=== PATIENT | male | born 1945 | race Caucasian/White ===

== ENCOUNTER 2020-02-03 08:40 | Outpatient (RCR) | payer MEDICARE, SELFPAY ==
[2020-02-03 10:02] VITALS: BMI 31.6
== END 2020-04-18 17:13 | disposition home or self-care (01) ==
LOC: ANHWOC 08:40
PROVIDERS: PCP Family Medicine; Visit Provider Family Medicine
DX: I87.2 Venous insufficiency (chronic) (peripheral) (principal)
CPT/HCPCS: 99213; G0463

== ENCOUNTER 2020-02-16 11:39 | Observation (INO) | payer MEDICARE, SELFPAY ==
[2020-02-16] VITALS (13 sets, daily range): BP systolic 91–120; BP diastolic 44–74; PULSE 80–95; RESP 17–22; TEMP 36.2–36.8; O2SAT 92–98; BMI 31.3
--- NOTE | ~2020-02-16 | XR_ITS ---
EXAMINATION: XR chest 1V INDICATION: Weakness and cough TECHNIQUE: AP view of the chest is obtained. COMPARISON: 06/30/2019 FINDINGS: There are minimal airspace opacities of the lung bases. A small left pleural effusion is pr esent. Stable cardiomegaly is noted. Median sternotomy wires and mediastinal surgical clips are seen, likely from prior coronary artery bypass grafting. There is enlargement of the main and central pulm onary arteries, consistent with pulmonary hypertension. IMPRESSION: 1. Bibasilar airspace opacity, consistent with atelectasis versus pneumonia. 2. Small left pleural effusion. 3. Cardiomegaly. Reviewed, dictated and finalized at location A.
--- NOTE | ~2020-02-16 | CT_ITS ---
EXAMINATION: CT chest abdomen pelvis w con DATE: 02/17/2020 14:25 INDICATION: Chronic cough, recent GI bleed TECHNIQUE: Transaxial computed tomographic images of the chest, abdomen, and pelvis were obtained aft er the administration of 100 cc of Omnipaque 350 intravenous contrast. The dose-length product (DLP) was 1765.30 mGy-cm. Automated exposure control and iterative reconstruction technique were employed. COMPARISON: None FINDINGS: CHEST CT: There is moderate emphysema. Cardiomegaly is noted. There is a small pleural effusion. Airspace opaci ties are present in the lower lobes, left greater than right. There is no pneumothorax. Moderate bila teral gynecomastia is noted. There is enlargement of the main and central pulmonary arteries, consist ent with pulmonary hypertension. There is mild bilateral hilar and mediastinal lymphadenopathy, likel y reactive. Calcified atherosclerosis is noted. There are changes of coronary artery bypass grafting. There are bridging osteophytes at multiple levels in the spine, consistent with diffuse idiopathic sk eletal hyperostosis (DISH). ABDOMEN/PELVIS CT: The liver, spleen, pancreas, and adrenal glands are normal. Stones layer in the nondistended gallblad hannah. The kidneys are unremarkable. There is calcified atherosclerosis of the aorta and many of the ot her arteries. No pathologically enlarged abdominal or pelvic lymph nodes are identified. There is no free intraperitoneal gas or evidence of bowel obstruction. There are changes of right hip arthroplast y. A bone island is noted in the left femoral neck. There is mild lumbar spondylosis. IMPRESSION: 1. Airspace opacities of the lower lobes, left greater than right, consistent with atelectasis and pn eumonia. 2. Mild mediastinal and bilateral hilar lymphadenopathy, likely reactive. 3. No acute findings of the abdomen or pelvis. 4. Small left pleural effusion. 5. Cholelithiasis without evidence of cholecystitis. Reviewed, dictated and finalized at location A. IMPRESSION: 1. Airspace opacities of the lower lobes, left greater than right, consistent w ith atelectasis and pneumonia. 2. Mild mediastinal and bilateral hilar lymphadenopathy, likely reactive. 3. No acute findings of the abdomen or pelvis. 4. Small left pleural effusion. 5. Cholelithiasis without evidence of cholecystitis.
--- NOTE | ~2020-02-16 | XR_ITS ---
EXAMINATION: XR thoracic spine 3V DATE: 02/16/2020 13:59 INDICATION: Mid back pain TECHNIQUE: AP, lateral and lateral swimmer's views of the thoracic spine were obtained. COMPARISON: None. FINDINGS: Bone alignment is normal. There is no fracture. There is mild loss of intervertebral disc s pace height at multiple levels in the thoracic spine. The vertebral body heights are maintained. Ther e are bridging osteophytes at multiple levels in the spine, consistent with diffuse idiopathic skelet al hyperostosis (DISH). IMPRESSION: 1. No acute osseous abnormality. Reviewed, dictated and finalized at location A.
--- NOTE | 2020-02-16 12:38 | ECG_ITS ---
Measurements Intervals [place] Rate: 99 P: HI: 0 QRS: 30 QRSD: 101 T: 30 QT: 358 QTc: 459 Interpretive Statements ATRIAL FIBRILLATION BORDERLINE T WAVE ABNORMALITY- INFERIOR LEADS ABNORMAL ECG Electronically Signed On 02-16-2020 14:00:33 CDT by Tucker Shultz D.O.
--- NOTE | 2020-02-16 12:47 | ED.GENADULT ---
HPI - General Adult General Chief complaint: Upper Respiratory Infection Stated complaint: cough Time Seen by Provider: 02/16/20 12:15 Source: patient Mode of arrival: ambulatory Limitations: no limitations History of Present Illness HPI narrative: This patient is a 74 year old male who presents for evaluation of sob and fatigue. Patient states he has been having upper back pain for several months. He went to be assessed by a chiropractor yesterday and the chiropractor was concerned patient appeared short of breath, diaphoretic and yellowish skin. Patient states he has been dealing cough productive with yellow sputum for 3 weeks. He also has some sob. He was tested for COVID last week due to his symptoms and it was negative. He states his main concern is his neck pain. His states Dr. Cunningham was concerned about patient having black stools for 1 week. PAtient does take pradaxa. He denies fever, chills, nausea, vomiting abdominal pain or chest pain. Related Data Home Medications Medication Instructions Recorded Confirmed allopurinol 100 mg tablet 100 mg PO QID tablet 05/22/19 02/16/20 dabigatran etexilate 150 mg capsule 150 mg PO BID 05/22/19 02/16/20 furosemide 40 mg tablet 40 mg PO QAM 05/22/19 02/16/20 metoprolol tartrate 50 mg tablet 50 mg PO Q12H tablet 05/22/19 02/16/20 spironolactone 25 mg tablet 25 mg PO DAILY 05/22/19 02/16/20 budesonide-formoterol HFA 160 2 puff INHALATION Q12H 09/16/19 02/16/20 mcg-4.5 mcg/actuation aerosol inhaler pravastatin 20 mg tablet 20 mg PO BID tablet 11/17/19 02/16/20 acetaminophen [Tylenol 8 Hour] 650 mg PO Q8H PRN 02/03/20 02/16/20 benzonatate 200 mg PO PRN PRN 02/16/20 02/16/20 Allergies Allergy/AdvReac Type Severity Reaction Status Date / Time No Known Allergies Allergy Mild Verified 02/16/20 17:20 Review of Systems Review of Systems: All systems reviewed & are unremarkable except as noted in HPI and below Constitutional: Constitutional: Denies chills, Reports fatigue and Denies fever(s) Cardiovascular: Cardiovascular: Denies chest pain Respiratory: Respiratory: Reports cough and Reports dyspnea Gastrointestinal: Gastrointestinal: Denies abdominal pain, Reports melena, Denies diarrhea, Denies nausea and Denies vomiting Musculoskeletal: Musculoskeletal: Reports back pain (upper back pain) Neurologic: Denies vertigo, Denies focal weakness and Denies numbness [facility] Past Medical History Medical History (Updated 02/16/20 @ 19:44 by Karey Rodriguez MD) Aortic aneurysm of unspecified site, without rupture Aortic valve insufficiency Atherosclerotic heart disease of [place] coronary artery with angina pectoris Chronic a-fib Chronic gout COPD (chronic obstructive pulmonary disease) Diverticulosis of intestine, part unspecified, without perforation or abscess with bleeding Hypertensive heart disease without heart failure IFG (impaired fasting glucose) Iron deficiency anemia due to chronic blood loss snf (current) use of anticoagulants Other giant cell arteritis Polyp of colon Retinal hemorrhage, bilateral Surgical History Surgical History (Updated 06/30/19 @ 09:37 by Lorenza Alegria APRN) History of coronary artery bypass graft Hx of CABG S/P hip replacement S/P pulmonary valve replacement Family History Family History (Updated 02/16/20 @ 17:38 by Ericka Mtz RN) Father Hypertension CHF (congestive heart failure) Mother Family history of malignant neoplasm of breast in first degree relative Varicose veins of both legs with edema Social History Social History Smoking packs per day: 2 Smoking cigarettes per day: 40.0 Years smoked: 30 Smoking pack-years: 60.00 Smoking status: Former smoker Tobacco type: cigarettes Second hand tobacco smoke exposure: Yes Smoking end date: 07/15/78 Alcohol intake: never Drinks per week: 4 Substance use: never Subst
--- NOTE | 2020-02-16 13:02 | PC.NURSE ---
Pt states he is not able to give a urine sample at this time. Provided with urinal and asked to attempt
[2020-02-16 13:06] LABS: Base Excess ABG -3.7 mEq/l (+/-2.0); Carboxyhemoglobin 1.6 % THb (0-2.0); Device ROOM AIR; Fractional Inspired Oxygen 21 %; HCO3 ABG 19.1 mEq/l (22.0-26.0); Methemoglobin ABG 0.3 %THb (0-1.5); Oxygen Content ABG 10.5 %vol (16.0-22.0); Oxygen Saturation ABG 95.1 % (95.0-100.0); Oxyhemoglobin 91.5 % THb (90.0-100.0); PCO2 ABG 26.4 mmHg (35.0-45.0); PO2 ABG 68.1 mmHg (80.0-100.0); PO2 FiO2 Ratio Arterial Blood 3.24 %; Reduced Hemoglobin 6.6 %THb (0-5.0); Site Drawn RIGHT BRACHIAL; Total Hemoglobin 8.1 g/dL (12.0-18.0); pH ABG 7.477 (7.350-7.450)
[2020-02-16 13:14] LABS: Basophils Percent Auto 0.3 % (0.2-1.2); Eosinophils Absolute Auto 0.1 K/mm3 (0-0.3); Eosinophils Percent Auto 0.7 % (0-4.4); Hematocrit 24.6 % (42.0-52.0); Hemoglobin 7.4 g/dL (14.0-18.0); Immature Granulocyte Absolute 0.15 K/mm3 (0.00-0.031); Lymphocytes Absolute Auto 2.26 K/mm3 (0.9-3.2); Lymphocytes Percent Auto 15.6 % (18.3-44.2); Mean Corpuscular HGB Conc 30.1 g/dl (32-36); Mean Corpuscular Hemoglobin 26.6 pg (26-34); Mean Corpuscular Volume 88.5 fl (80-100); Mean Platelet Volume 10.1 fl (7.4-10.4); Monocytes Absolute Auto 1.2 K/mm3 (0.1-0.6); Monocytes Percent Auto 8.3 % (2.6-8.5); Neutrophils Absolute Auto 10.8 K/mm3 (1.3-6.7); Neutrophils Percent Auto 74.1 % (45.5-73.1); Nucleated Red Blood Cells Absolute Auto 0.1 K/mm3 (0.0-0.012); Nucleated Red Blood Cells Perc 0.6 % (0.0-0.2); Platelet Count Result 323 k/mm3 (150-375); Red Blood Count 2.78 M/mm3 (4.6-6.20); Red Cell Distribution Width 15.9 % (11.5-14.5); White Blood Count 14.5 K/mm3 (4.5-10.0)
[2020-02-16] MEDS: SODIUM CHLORIDE 0.9% IV 1,000 ML 999 ML IV CONT (13:22)
[2020-02-16] MEDS: PANTOPRAZOLE SODIUM IV 40 MG VIAL IV PUSH ×2 (13:22→20:02)
[2020-02-16 13:24] LABS: INR 1.7; Prothrombin Time 19.8 Seconds (11.1-14.7)
[2020-02-16 13:26] LABS: Lactic Acid Reflex 1.8 mmol/L (0.7-2.1)
[2020-02-16 13:30] LABS: Alanine Aminotransferase 15 U/L (4-50); Albumin Level 3.4 g/dL (3.5-5.1); Alkaline Phosphatase 112 U/L (38-126); Anion Gap 14.5 mmol/L (7-16); Aspartate Amino Transferase 18 U/L (17-59); Bilirubin,Total 1.7 mg/dL (0.2-1.3); Blood Urea Nitrogen 28 mg/dL (9-20); CRP 6.4 mg/dL (<1.0); Calcium 8.5 mg/dL (8.4-10.2); Carbon Dioxide 21 mmol/L (22-30); Chloride 102 mmol/L (98-107); Estimated CRCL calculation 59 ml/min; Estimated Glomerular Filt Rate > 60; Glucose 174 mg/dL (75-110); Potassium 4.5 mmol/L (3.4-5.0); Sodium 133 mmol/L (137-145)
[2020-02-16 13:35] LABS: NT Pro B Type Natriuretic Pept 3760 PG/ML (5-100)
--- NOTE | 2020-02-16 13:45 | PC.NURSE ---
Pt still refusing urine sample stating he can't go at this time. Refusing catheter
--- NOTE | 2020-02-16 14:46 | PC.NURSE ---
Lynn attempted to get urine sample from patient. Pt states if you are admitting me than why can't you just get it then. over hears and tells pt to not worry about it
[2020-02-16] MEDS: SODIUM CHLORIDE 0.9% IV 250 ML 30 ML IV CONT (16:36)
[2020-02-16] MEDS: TUBING, BLOOD PLUM PUMP TUBING 1 EACH XX (16:37)
--- NOTE | 2020-02-16 17:12 | ADMGEN ---
This patient, Rubio Fenton, was admitted to Medical Room 249-01. Patient/family oriented to hospital policies and general routines including ID bracelet, bed and alarms, visiting hours, pain management, procedures, bathroom and other care routines, personal items, smoking policy, room service/diet, and visiting hours. Valuables list has been completed. Information on how to activate the Rapid Response Team has been discussed. Patient/Family are encouraged to report perceived risks to care and to ask questions if they do not understand what they are told or what they should do.
[2020-02-16 19:48] LABS: Hematocrit 26.3 % (42.0-52.0); Hemoglobin 7.9 g/dL (14.0-18.0)
[2020-02-16 22:59] LABS: Add Urine Microscopic? YES; Appearance Urine Clear (Clear); Bilirubin Urine Negative (Negative); Blood Urine Negative (Negative); Color Urine Yellow (Yellow); Glucose Urine UA Negative (Negative); Ketones Urine Negative (Negative); Leukocyte Esterase Ur Negative LEU/UL (Negative); Mucus Urine Rare /lpf; Nitrate Urine Negative (Negative); Protein Urine 1+ mg/dL (Negative); RBC Urine 0-2 /hpf (0-2); Specific Grav Ur 1.025 (1.001-1.035); Squamous Epithelial Cell Urine Rare /hpf (Few); WBC Urine 0-3 /hpf
[2020-02-17] VITALS (19 sets, daily range): BP systolic 96–127; BP diastolic 42–61; PULSE 65–118; RESP 16–38; TEMP 36.2–37.3; O2SAT 92–100; BMI 31.3
--- NOTE | 2020-02-17 00:32 | PM.IMHP ---
H&P: HPI History of Present Illness Date/Time: 02/17/20 00:32 Chief complaint: UPPER GI BLEEDING ,ANEMIA,COPD Narrative: Rubio Fenton is a 74 year old male Who has a history of COPD. Has been complaining of a chronic cough. It looks like he was given antibiotics back in June. Patient has in his records that he has COPD but the patient stated he was not so sure about having COPD. He states that he coughs all the time and that his nasal spray helps him. The patient may possibly have allergies. The patient has a history of atrial fibrillation and is on Pradaxa. The patient came here with shortness of breath and fatigue. He has been complaining of neck pain for several months. He has been to the chiropractor several times before. But he decided to go to new chiropractor yesterday and the chiropractor was concerned about the patient shortness of breath diaphoresis and yellow skin. The patient stated he has been dealing with this for 3 weeks but I conceived as far back as June where he was having a cough. The patient's was with him and stated that his primary care doctor Dr. Cunningham had been concerned about the patient having black stools for a week. In the patient is on Pradaxa his H&H was noted to be 7.4 and 24.6 which is about his baseline. Chest x-ray was read as bibasilar airspace bases consistent with atelectasis versus pneumonia. Small pleural vision. Cardiomegaly. Thoracic spine x-ray no acute osseous abnormality. Dr. cabrera have been consult for an upper GI bleed. The patient was started on Protonix andIV fluids. repeat H&H was 7.9 and 26.3. White count 14.5. I spent approximately 60 minutes with the patient. Any cough 1 time that was a lose nonproductive cough. He has no fever no chills. His blood pressures were soft. He stated that he had some nasal congestion and just needed some nasal spray. Date of service is 02/16/2020 patient could not recall when he had his last colonoscopy. There was a note that he had a colonoscopy April of [address] [facility] [address] PAEZ. Review of Systems Review of Systems: All systems reviewed & are unremarkable except as noted in HPI and below Constitutional: Constitutional: Reports as per HPI and Reports no additional constitutional complaints Eyes: Eyes: Reports as per HPI and Reports no additional eye complaints ENT: Reports system reviewed and no additional complaints, except as documented and Reports Normal hearing present Cardiovascular: Cardiovascular: Reports no additional cardiovascular complaints Respiratory: Respiratory: Reports no additional respiratory complaints and Reports no additional respiratory complaints Gastrointestinal: Gastrointestinal: Reports as per HPI and Reports no additional gastrointestinal complaints Musculoskeletal: Musculoskeletal: Reports no additional musculoskeletal complaints Integumentary/Breasts: Skin/Breast: Reports system reviewed and no additional complaints, except as docu and Reports as per HPI Neurologic: Reports system reviewed and no additional complaints, except as documented, Reports as per HPI and Reports Normal hearing present Psychiatric: Psychiatric: Reports no additional psychiatric complaints and Reports as per HPI Endocrine: Endocrine: Reports no additional endocrine complaints Hematologic/Lymphatic: Hematologic/Lymphatic: Reports no additional hematologic/lymphatic complaints Allergic/Immunologic: Allergic/Immunologic: Reports no additional allergic/immunologic complaints [facility] Past Medical History Medical History (Updated 02/17/20 @ 00:51 by Chey Evans NP) Aortic aneurysm of unspecified site, without rupture Aortic valve insufficiency Atherosclerotic heart disease of [place] coronary artery with angina pectoris Chronic a-fib Chronic gout 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
[2020-02-17] MEDS: PHENYLEPHRINE HCL 0.5% NA SPRAY 15 ML BTL (*BKC) 1 SPRAY EACH NARE (00:45)
[2020-02-17 03:31] LABS: Hemoglobin 7.3 g/dL (14.0-18.0)
[2020-02-17 03:40] LABS: Alanine Aminotransferase 12 U/L (4-50); Alkaline Phosphatase 99 U/L (38-126); Anion Gap 13.3 mmol/L (7-16); Aspartate Amino Transferase 19 U/L (17-59); Bilirubin,Total 1.8 mg/dL (0.2-1.3); Blood Urea Nitrogen 24 mg/dL (9-20); Calcium 8.3 mg/dL (8.4-10.2); Carbon Dioxide 21 mmol/L (22-30); Chloride 104 mmol/L (98-107); Estimated CRCL calculation 65 ml/min; Estimated Glomerular Filt Rate > 60; Glucose 148 mg/dL (75-110); Potassium 4.3 mmol/L (3.4-5.0); Sodium 134 mmol/L (137-145)
--- NOTE | 2020-02-17 05:18 | ECG_ITS ---
Measurements Intervals [place] Rate: 124 P: PA: 0 QRS: 34 QRSD: 99 T: 30 QT: 310 QTc: 446 Interpretive Statements ATRIAL FIBRILLATION WITH RAPID VENTRICULAR RESPONSE NONSPECIFIC ST ABNORMALITY- LAT/HIGH LAT LEADS ABNORMAL ECG Electronically Signed On 02-17-2020 7:07:34 CDT by Tucker Shultz D.O.
--- NOTE | 2020-02-17 05:47 | PM.EVENT ---
Event Note Event Note Event Note: Patient was admitted for GI Bleed and developed tachycardia this morning. Asymptomatic. EKG demonstrated atrial fibrillation w/ RVR. HR 124 bpm. No other complaints. Transfer to IMU, diltiazem IV bolus and drip for rate control. telemetry. Patient is not a candidate for anticoagulation. Consider Cardiology consultation today.
[2020-02-17] MEDS: dilTIAZem HCl INJ 25 MG/5 ML VIAL 10 MG IV PUSH (06:16)
--- NOTE | 2020-02-17 07:37 | PC.NURSE ---
This patient, Rubio Fenton, was received from [facility] on 02/17/20 at 0737. Report received from NAINA Sy. Patient/family oriented to unit policies and routines
[2020-02-17] MEDS: BENZONATATE 100 MG CAPSULE 200 MG PO (07:51)
--- NOTE | 2020-02-17 08:43 | WPDANESEPP ---
Anes - Eval Pre Procedure Procedure: Operation Date: 02/17/20 10:00 Proposed Procedures p Esophagogastroduodenoscopy - Jaxon Torrez MD Date/Time: 02/17/20 08:43 Pre Op Diagnosis: UPPER GI BLEEDING ,ANEMIA,COPD Patient Data Age: 74 Gender: M Height: 5 ft 10 in Weight: 99 kg Last Vital Signs Temp 99.1 F 02/17/20 08:00 Pulse 108 H 02/17/20 08:00 Resp 26 H 02/17/20 08:00 BP 100/53 L 02/17/20 08:00 Pulse Ox 96 02/17/20 08:00 Allergies Allergy/AdvReac Type Severity Reaction Status Date / Time No Known Allergies Allergy Mild Verified 02/16/20 17:20 Home Medications Medication Instructions Recorded Confirmed Type allopurinol 100 mg tablet 100 mg PO QID tablet 05/22/19 02/16/20 History dabigatran etexilate 150 mg capsule 150 mg PO BID 05/22/19 02/16/20 History furosemide 40 mg tablet 40 mg PO QAM 05/22/19 02/16/20 History metoprolol tartrate 50 mg tablet 50 mg PO Q12H tablet 05/22/19 02/16/20 History spironolactone 25 mg tablet 25 mg PO DAILY 05/22/19 02/16/20 History budesonide-formoterol HFA 160 2 puff INHALATION Q12H 09/16/19 02/16/20 History mcg-4.5 mcg/actuation aerosol inhaler pravastatin 20 mg tablet 20 mg PO BID tablet 11/17/19 02/16/20 History acetaminophen [Tylenol 8 Hour] 650 mg PO Q8H PRN 02/03/20 02/16/20 History benzonatate 200 mg PO PRN PRN 02/16/20 02/16/20 History Laboratory Tests 02/16/20 02/16/20 02/16/20 12:52 13:03 13:03 WBC 14.5 K/mm3 H K/mm3 (4.5-10.0) RBC 2.78 M/mm3 L M/mm3 (4.6-6.20) Hgb 7.4 g/dL L g/dL (14.0-18.0) Hct 24.6 % L % (42.0-52.0) MCV 88.5 fl fl (80-100) MCH 26.6 pg pg (26-34) MCHC 30.1 g/dl L g/dl (32-36) RDW 15.9 % H % (11.5-14.5) Plt Count 323 k/mm3 k/mm3 (150-375) MPV 10.1 fl fl (7.4-10.4) Immature Gran % (Auto) 1.0 % H % (0-0.5) Neut % (Auto) 74.1 % H % (45.5-73.1) Lymph % (Auto) 15.6 % L % (18.3-44.2) [place] % (Auto) 8.3 % % (2.6-8.5) Eos % (Auto) 0.7 % % (0-4.4) Baso % (Auto) 0.3 % % (0.2-1.2) Lymph # (Auto) 2.26 K/mm3 K/mm3 (0.9-3.2) [place] # (Auto) 1.2 K/mm3 H K/mm3 (0.1-0.6) Eos # (Auto) 0.1 K/mm3 K/mm3 (0-0.3) Baso # (Auto) 0.0 K/mm3 K/mm3 (0.0-0.1) Abs Immat Gran (auto) 0.15 K/mm3 H K/mm3 (0.00-0.031) Absolute Neuts (auto) 10.8 K/mm3 H K/mm3 (1.3-6.7) Absolute Nucleated RBC 0.1 K/mm3 H K/mm3 (0.0-0.012) Nucleated RBC % 0.6 % H % (0.0-0.2) PT INR APTT Puncture Site Right brachial ABG pH 7.477 H (7.350-7.450) ABG pCO2 26.4 mmHg L mmHg (35.0-45.0) ABG pO2 68.1 mmHg L mmHg (80.0-100.0) ABG PO2/FiO2 Ratio 3.24 % % ABG HCO3 19.1 mEq/l L mEq/l (22.0-26.0) ABG O2 Saturation 95.1 % % (95.0-100.0) ABG O2 Content 10.5 %vol L %vol (16.0-22.0) ABG Base Excess -3.7 mEq/l mEq/l (+/-2.0) A-a Gradient 50.0 mmHg mmHg Oxyhemoglobin 91.5 % THb % THb (90.0-100.0) Carboxyhemoglobin 1.6 % THb % THb (0-2.0) Methemoglobin 0.3 %THb %THb (0-1.5) Reduced Hemoglobin 6.6 %THb H %THb (0-5.0) Total Hemoglobin 8.1 g/dL L g/dL (12.0-18.0) O2 Delivery Device Room air O2 Liters/Min Not Reportable FiO2 21 % % Sodium Potassium Chloride Carbon Dioxide Anion Gap BUN Creatinine Estim Creat Clear Calc Estimated GFR Glucose Lactic Acid Calcium Magnesium Total Bilirubin AST ALT Alkaline Phosphatase C-Reactive Protein NT-Pro-B Ana
[2020-02-17 08:46] LABS: Hematocrit 24.3 % (42.0-52.0); Hemoglobin 7.4 g/dL (14.0-18.0); Mean Corpuscular HGB Conc 30.5 g/dl (32-36); Mean Corpuscular Hemoglobin 26.6 pg (26-34); Mean Corpuscular Volume 87.4 fl (80-100); Mean Platelet Volume 10.4 fl (7.4-10.4); Platelet Count Result 305 k/mm3 (150-375); Red Blood Count 2.78 M/mm3 (4.6-6.20); Red Cell Distribution Width 15.9 % (11.5-14.5); White Blood Count 12.4 K/mm3 (4.5-10.0)
--- NOTE | 2020-02-17 09:03 | PC.NURSE ---
Patient to EGD via stretcher. Report given to NAINA Shea.
--- NOTE | 2020-02-17 09:24 | WPDGICN ---
Assessment and Plan Assessment and plan (1) Acute upper GI bleed: Code(s): K92.2 - Gastrointestinal hemorrhage, unspecified Status: Acute Assessment and Plan: Patient appears to have upper GI bleeding manifested by decline in hemoglobin and black melenic stools. Plan is for EGD today. Patient will be maintained on proton pump inhibitors until this can be accomplished. (2) Anemia: Code(s): D64.9 - Anemia, unspecified Status: Acute Assessment and Plan: Patient has anemia consistent with blood loss anemia. Likely related to GI bleeding. Plan is to transfuse to a stable hemoglobin. EGD will be performed today. (3) History of colon polyps: Code(s): Z86.010 - Personal history of colonic polyps Status: Acute Assessment and Plan: Patient has a history of colon polyps. Last colonoscopy was 5 years ago. Plan is for outpatient colonoscopy unless EGD is negative in which case a colonoscopy will be performed more urgently. (4) Chronic a-fib: Code(s): I48.20 - Chronic atrial fibrillation, unspecified Status: Acute Assessment and Plan: Patient maintained on Pradaxa anticoagulation. Pradaxa will need to be held while bleeding is a concern. (5) COPD (chronic obstructive pulmonary disease): Code(s): J44.9 - Chronic obstructive pulmonary disease, unspecified Status: Acute GI Consult Note Consult date/time: 02/17/20 09:24 HPI: Rubio Fenton is a 74 year old male Seen in evaluation at the request of the hospitalist service. Patient has various complaints over the last several days a weakness fatigue shortness of breath back pain. He has saw chiropractor recently was advised to contact his primary care service and ultimately sent to the emergency room. In the emergency room he was found to have anemia and black melenic stools that were Hemoccult positive. Patient states that his stools have been black for approximately 1 week. Patient does have a prior history of GI bleeding apparently a colonoscopy 5 years ago revealed a colon polyp. He has had no follow-up colonoscopy since that time. He denies any prior history of ulcer disease or upper GI bleeding. He denies any obtain specific abdominal pain. Family history is noncontributory. Patient is maintained on Pradaxa for history of atrial fibrillation. After admission the hospital was found to have a rapid heart rate placed on a Cardizem drip. 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 Retinal hemorrhage, bilateral Surgical History Surgical History H/O bilateral cataract extraction History of arthroplasty of right hip History of coronary artery bypass graft RAI to LAD Dr. shelli [facility] Hx of CABG 1 vessel S/P hip replacement S/P pulmonary valve replacement Family History Family History Father Hypertension CHF (congestive heart failure) Mother Family history of malignant neoplasm of breast in first degr
[2020-02-17] MEDS: LACTATED RINGERS 1,000 ML 150 ML IV CONT (09:25)
--- NOTE | 2020-02-17 09:37 | WPDANESEPPF ---
Anes - Initial Pre Proc Eval Procedure: Operation Date: 02/17/20 10:00 Proposed Procedures p Esophagogastroduodenoscopy - Jaxon Torrez MD Date/Time: 02/17/20 09:37 Surgeon: Laura Cowart PA-C Pre Op Diagnosis: UPPER GI BLEEDING ,ANEMIA,COPD Patient Data Age: 74 Gender: M Height: 5 ft 10 in Weight: 99 kg Last Vital Signs Temp 97.9 F 02/17/20 09:27 Pulse 84 02/17/20 09:27 Resp 18 02/17/20 09:27 BP 122/54 L 02/17/20 09:27 Pulse Ox 94 02/17/20 09:27 Allergies Allergy/AdvReac Type Severity Reaction Status Date / Time No Known Allergies Allergy Mild Verified 02/17/20 09:26 Home Medications Medication Instructions Recorded Confirmed Type allopurinol 100 mg tablet 100 mg PO QID tablet 05/22/19 02/16/20 History dabigatran etexilate 150 mg capsule 150 mg PO BID 05/22/19 02/16/20 History furosemide 40 mg tablet 40 mg PO QAM 05/22/19 02/16/20 History metoprolol tartrate 50 mg tablet 50 mg PO Q12H tablet 05/22/19 02/16/20 History spironolactone 25 mg tablet 25 mg PO DAILY 05/22/19 02/16/20 History budesonide-formoterol HFA 160 2 puff INHALATION Q12H 09/16/19 02/16/20 History mcg-4.5 mcg/actuation aerosol inhaler pravastatin 20 mg tablet 20 mg PO BID tablet 11/17/19 02/16/20 History acetaminophen [Tylenol 8 Hour] 650 mg PO Q8H PRN 02/03/20 02/16/20 History benzonatate 200 mg PO PRN PRN 02/16/20 02/16/20 History Laboratory Tests 02/16/20 02/16/20 02/16/20 12:52 13:03 13:03 WBC 14.5 K/mm3 H K/mm3 (4.5-10.0) RBC 2.78 M/mm3 L M/mm3 (4.6-6.20) Hgb 7.4 g/dL L g/dL (14.0-18.0) Hct 24.6 % L % (42.0-52.0) MCV 88.5 fl fl (80-100) MCH 26.6 pg pg (26-34) MCHC 30.1 g/dl L g/dl (32-36) RDW 15.9 % H % (11.5-14.5) Plt Count 323 k/mm3 k/mm3 (150-375) MPV 10.1 fl fl (7.4-10.4) Immature Gran % (Auto) 1.0 % H % (0-0.5) Neut % (Auto) 74.1 % H % (45.5-73.1) Lymph % (Auto) 15.6 % L % (18.3-44.2) [place] % (Auto) 8.3 % % (2.6-8.5) Eos % (Auto) 0.7 % % (0-4.4) Baso % (Auto) 0.3 % % (0.2-1.2) Lymph # (Auto) 2.26 K/mm3 K/mm3 (0.9-3.2) [place] # (Auto) 1.2 K/mm3 H K/mm3 (0.1-0.6) Eos # (Auto) 0.1 K/mm3 K/mm3 (0-0.3) Baso # (Auto) 0.0 K/mm3 K/mm3 (0.0-0.1) Abs Immat Gran (auto) 0.15 K/mm3 H K/mm3 (0.00-0.031) Absolute Neuts (auto) 10.8 K/mm3 H K/mm3 (1.3-6.7) Absolute Nucleated RBC 0.1 K/mm3 H K/mm3 (0.0-0.012) Nucleated RBC % 0.6 % H % (0.0-0.2) PT INR APTT Puncture Site Right brachial ABG pH 7.477 H (7.350-7.450) ABG pCO2 26.4 mmHg L mmHg (35.0-45.0) ABG pO2 68.1 mmHg L mmHg (80.0-100.0) ABG PO2/FiO2 Ratio 3.24 % % ABG HCO3 19.1 mEq/l L mEq/l (22.0-26.0) ABG O2 Saturation 95.1 % % (95.0-100.0) ABG O2 Content 10.5 %vol L %vol (16.0-22.0) ABG Base Excess -3.7 mEq/l mEq/l (+/-2.0) A-a Gradient 50.0 mmHg mmHg Oxyhemoglobin 91.5 % THb % THb (90.0-100.0) Carboxyhemoglobin 1.6 % THb % THb (0-2.0) Methemoglobin 0.3 %THb %THb (0-1.5) Reduced Hemoglobin 6.6 %THb H %THb (0-5.0) Total Hemoglobin 8.1 g/dL L g/dL (12.0-18.0) O2 Delivery Device Room air O2 Liters/Min Not Reportable FiO2 21 % % Sodium Potassium Chloride Carbon Dioxide Anion Gap BUN Creatinine Estim Creat Clear Calc Estimated GFR Glucose Lactic Acid Calcium Magnesium Total Bilirubin AST ALT Alkaline Phosphatase C-Reacti
--- NOTE | 2020-02-17 10:42 | PC.NURSE ---
Patient returned to room following EGD.
--- NOTE | 2020-02-17 10:56 | SUR.PHASEII ---
1000 pt's spouse at bedside. Pt coughing up copious yellow secretions. Suctioned as needed. Updated pt's nurse Lary.
[2020-02-17] MEDS: allopurinoL 100 MG TABLET PO (12:01)
--- NOTE | 2020-02-17 13:12 | PCNSR ---
On 02/17/20, the student, El Copeland, provided care and completed [facility] documentation on this patient. I have reviewed the student's documentation and agree with the findings.
--- NOTE | 2020-02-17 13:47 | PM.IMPN ---
Progress Note: A&P Assessment and Plan (1) Acute upper GI bleed: Code(s): K92.2 - Gastrointestinal hemorrhage, unspecified Status: Acute Assessment and Plan: Underwent endoscopy today by Dr. Torrez. 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 Continue to hold Pradaxa for one week per Dr. Torrez's recommendations. He will need to schedule an outpatient colonoscopy (2) Anemia: Code(s): D64.9 - Anemia, unspecified Status: Acute Assessment and Plan: Normocytic. On review of prior labs, appears to be chronic but acutely worsened by active upper GI bleed. Suspect improvement following cautery. Continue to monitor H&H closely and transfuse as needed. (3) Community acquired pneumonia: Code(s): J18.9 - Pneumonia, unspecified organism Status: Acute Assessment and Plan: CXR and chest CT show bibasilar airspace opacities consistent with pneumonia. He has had cough productive of yellow sputum and leukocytosis. He is afebrile. Will begin rocephin and azithromycin Attempt collection of sputum culture Check legionella and pneumococcal antigens Bronchodilators and supplemental O2 as needed (4) Chronic a-fib: Code(s): I48.20 - Chronic atrial fibrillation, unspecified Status: Acute Assessment and Plan: His rate is typically well controlled with Early am on 02/16, his rate increased to the 150s. He was moved to the IMU and started on a cardizem drip. This was more than likely due to holding metoprolol prior to EGD while he was NPO. Rate is controlled with cardizem. Continue cardizem drip Cardiology was consulted and recommendations are appreciated. Will resume typical 50 mg q12 dose with evening meds at 9:00 pm. Stop cardizem drip at that time per cardiology recs Continue to monitor on telemetry Hold pradaxa for 1 week per GI recs (5) COPD (chronic obstructive pulmonary disease): Code(s): J44.9 - Chronic obstructive pulmonary disease, unspecified Status: Acute Assessment and Plan: Chronic and stable. He is maintaining adequate oxygenation on room air. Continue bronchodilators. Supplemental O2 as needed with goal O2 sat >90% (6) Congestive heart failure: Code(s): I50.9 - Heart failure, unspecified Status: Chronic Assessment and Plan: EF unknown. Appears clinically compensated. Continue metoprolol, lasix, and spironolactone Monitor volume status closely. Subjective Date/time seen: 02/17/20 13:47 Interval history: Date of service: 02/17/2020 He reports he is feeling well today. He tolerated his endoscopy well this morning. He had a dark tarry stool overnight but has not had any stools today. He has had no other episodes of bleeding. He denies any abdominal pain, nausea, vomiting, fever, or chills. He complains of cough productive of yellow sputum and shortness of breath. He denies chest pain, palpitations, dizziness, lightheadedness, fatigue, or weakness. He is eating well. Review of Systems Review of Systems: Narrative: A 12 point review of systems was reviewed with pertinent positives and negatives as per HPI. Exam Narrative: Exam Narrative: Mr. Fenton is examined alone today. He is a well-nourished 74-year-old male who is lying semi recumbent in bed eating lunch. He appears comfortable and is in no acute distress. HR 94, BP 104/46, R 22, T 98.8?, 97% on room air Neuro: awake, alert and oriented x4, speech clear, no focal neuro deficits noted HEENMT: normocephalic, atraumatic, EOMI, sclerae anicteric, moist oral mucosa, tongue midline, nares patent Neck: supple, no lymphadenopathy Respiratory: clear to auscultation bilaterally, nonlabored breathing Cardio: regular rate, regular rhythm with S1-S2 Abdomen: nondistended, normoactive bowel sounds, soft, nontender to palpation Extremities: no edema, erythema, cyanosis,
--- NOTE | 2020-02-17 16:06 | PM.CNCAR ---
Assessment and Plan Assessment and plan (1) Chronic a-fib: Code(s): I48.20 - Chronic atrial fibrillation, unspecified <Nikkie Paulson APRN - Last Filed: 02/17/20 17:16> Status: Acute <Nikkie Paulson APRN - Last Filed: 02/17/20 17:16> Assessment and Plan: Permanent atrial fibrillation. Rate normally controlled with 50 mg of Metoprolol tartrate every 12 hours. This is been on hold since admission. Went into AFib RVR overnight. Rate is controlled with Cardizem at 5 mg per hour. Recommend restarting Metoprolol tartrate 50 mg every 12 hours. Discontinue Cardizem drip when 1st dose given. 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 Per Dr Torrez's recommendation will hold for at least 1 week. <Nikkie Paulson APRN - Last Filed: 02/17/20 17:16> (3) Acute upper GI bleed: Code(s): K92.2 - Gastrointestinal hemorrhage, unspecified <Nikkie Paulson APRN - Last Filed: 02/17/20 17:16> Status: Acute <Nikkie Paulson APRN - Last Filed: 02/17/20 17:16> Assessment and Plan: Endoscopy revealed:single localized angioectasia in the 3rd part of the duodenum. It was actively bleeding. The lesion was successfully cauterized. Colonoscopy to be scheduled as an outpatient. <Nikkie Paulson APRN - Last Filed: 02/17/20 17:16> Additional Plan Plan discussed with Dr Lyons 02/18/2020 <Nikkie Paulson APRN - Last Filed: 02/17/20 17:16> History of Present Illness History of Present Illness Consult date/time: 02/17/20 15:25 <Nikkie Paulson APRN - Last Filed: 02/17/20 17:16> 02/18/2020 Patient seen, chart reviewed. Patient with persistent atrial fibrillation usually well controlled, now with AFib RVR.Agree with PROGRAM STRATEGIST and Khurram's assessment that patient had AFib RVR was related to missing meds; the anemia is a contributing factor as well. Pradaxa on hold because of anemia and acute GI bleeding. Yeimi Lyons MD <Marry Lyons MD - Last Filed: 02/18/20 11:21> Requesting physician: Laura Cowart PA-C <Nikkie Paulson APRN - Last Filed: 02/17/20 17:16> Consult reason: atrial fibrillation ( RVR) <Nikkie Paulson APRN - Last Filed: 02/17/20 17:16> Reason For Visit: UPPER GI BLEEDING ,ANEMIA,COPD <Nikkie Paulson APRN - Last Filed: 02/17/20 17:16> Narrative: 74-year-old male with a history of permanent atrial fibrillation on long-term use of anticoagulation with dabigatran presented to the emergency room on 02/16/2020 with shortness of breath and fatigue. He was admitted with an acute upper GI bleed and anemia. . He was NPO for endoscopy today. His medications were on hold. Overnight he went into atrial fibrillation with a rapid ventricular response. He was started on a Cardizem drip for rate control. He was taken to the GI lab today by Dr Torrez with a significant findings of a single localized angioectasia in the 3rd part of the duodenum. It was actively bleeding. The lesion was successfully cauterized. Dr Torrez recommended no anticoagulation for 1 week. Schedule outpatient colonoscopy. <Nikkie Paulson APRN - Last Filed: 02/17/20 17:16> Review of Systems Constitutional: Constitutional: Denies difficulty sleeping, Reports fatigue, Denies fever(s), Denies headache(s) and Denies night sweats <Nikkie Paulson APRN - Last Filed: 02/17/20 17:16> Eyes: Eyes: Denies blurry vision <Nikkie Paulson APRN - Last Filed: 02/17/20 17:16> ENT: Reports Normal hearing present, Denies dysphagia, Denies dizziness, Denies epista
[2020-02-17] MEDS: METOPROLOL TARTRATE 50 MG TAB PO (17:41)
[2020-02-17] MEDS: allopurinoL 100 MG TABLET 200 MG PO (17:41)
[2020-02-17 20:50] LABS: Hematocrit 23.7 % (42.0-52.0); Hemoglobin 7.3 g/dL (14.0-18.0)
[2020-02-17] MEDS: PRAVASTATIN SODIUM 20 MG TABLET PO (20:54)
[2020-02-17] MEDS: AZITHROMYCIN 250 MG TABLET 500 MG PO (20:54)
[2020-02-18] VITALS (15 sets, daily range): BP systolic 96–121; BP diastolic 42–53; PULSE 62–106; RESP 18–22; TEMP 35.6–37; O2SAT 93–100
[2020-02-18 01:25] LABS: Hematocrit 22.9 % (42.0-52.0)
[2020-02-18 01:37] LABS: Hemoglobin 6.9 g/dL (14.0-18.0)
[2020-02-18] MEDS: SODIUM CHLORIDE 0.9% IV 250 ML 30 ML IV CONT (02:15)
[2020-02-18] MEDS: METOPROLOL TARTRATE 50 MG TAB PO (05:46)
[2020-02-18 07:21] LABS: Hematocrit 26.9 % (42.0-52.0); Hemoglobin 8.2 g/dL (14.0-18.0); Mean Corpuscular HGB Conc 30.5 g/dl (32-36); Mean Corpuscular Hemoglobin 26.8 pg (26-34); Mean Corpuscular Volume 87.9 fl (80-100); Mean Platelet Volume 10.3 fl (7.4-10.4); Platelet Count Result 306 k/mm3 (150-375); Red Blood Count 3.06 M/mm3 (4.6-6.20); White Blood Count 9.8 K/mm3 (4.5-10.0)
[2020-02-18 07:43] LABS: Anion Gap 11.2 mmol/L (7-16); Blood Urea Nitrogen 19 mg/dL (9-20); CRP 5.5 mg/dL (<1.0); Calcium 8.2 mg/dL (8.4-10.2); Carbon Dioxide 23 mmol/L (22-30); Chloride 101 mmol/L (98-107); Estimated CRCL calculation 72 ml/min; Estimated Glomerular Filt Rate > 60; Glucose 137 mg/dL (75-110); Potassium 4.2 mmol/L (3.4-5.0); Sodium 131 mmol/L (137-145)
--- NOTE | 2020-02-18 07:47 | PC.NURSE ---
Patient had large liquid bloody stool. HGB at 06:45 was 8.2 will notify doctor.
[2020-02-18] MEDS: FUROSEMIDE 40 MG TABLET PO (08:02)
[2020-02-18] MEDS: SPIRONOLACTONE 25 MG TABLET PO (08:02)
[2020-02-18] MEDS: allopurinoL 100 MG TABLET 200 MG PO (08:02)
[2020-02-18] MEDS: PRAVASTATIN SODIUM 20 MG TABLET PO (08:02)
[2020-02-18] MEDS: PANTOPRAZOLE 40 MG TABLET PO (08:03)
[2020-02-18] MEDS: BENZONATATE 100 MG CAPSULE 200 MG PO (08:18)
--- NOTE | 2020-02-18 10:54 | WPDGIPROGNO ---
Progress Note: A&P Additional Plan Patient looks and feels much better today. Tolerating diet. He denies abdominal pain. No obvious signs of active continued bleeding. Physical exam reveals patient be alert. Comfortable at rest. He is anicteric. Lungs are clear. Heart without murmur. Abdomen is obese. Bowel sounds are present soft nontender. Labs reveal hemoglobin 8.2, hematocrit 26.9. Impression 1. Status post upper GI bleeding. Secondary to duodenal angiodysplasia. Plan to continue PPI for several months. Avoid anticoagulation for at least a week. 2. Atrial fibrillation. I would hold Pradaxa for at least a week. 3. COPD, 4. CHF. Plan is for discharge when hemoglobin stable. Advanced to regular diet. Anticipate outpatient colonoscopy to be scheduled through Dr. mai is office after discharge. Subjective Date/time seen: 02/18/20 10:54 Objective Data Vital Signs Vital Signs: Vital Signs - 24 hr 02/17/20 12:00 02/17/20 14:00 02/17/20 16:00 Temperature 98.8 F Pulse Rate 94 92 92 Respiratory Rate 22 H Blood Pressure 104/46 L Pulse Oximetry 97 02/17/20 16:57 02/17/20 17:41 02/17/20 18:00 Temperature 97.4 F L Pulse Rate 68 89 113 H Respiratory Rate 24 H Blood Pressure 105/42 L Pulse Oximetry 100 02/17/20 19:58 02/17/20 20:00 02/17/20 22:00 Temperature 97.2 F L Pulse Rate 97 78 65 Respiratory Rate 22 H 22 H Blood Pressure 107/56 L Pulse Oximetry 96 96 02/18/20 00:00 02/18/20 00:26 02/18/20 02:00 Temperature 97.1 F L Pulse Rate 62 96 68 Respiratory Rate 22 H 18 Blood Pressure 97/49 L Pulse Oximetry 96 93 02/18/20 02:30 02/18/20 02:46 02/18/20 03:41 Temperature 97.1 F L 96.9 F L Pulse Rate 66 81 88 Respiratory Rate 20 20 20 Blood Pressure 110/53 L 115/50 L Pulse Oximetry 95 97 97 02/18/20 03:46 02/18/20 03:53 02/18/20 04:46 Temperature 96.1 F L 96.1 F L 97.0 F L Pulse Rate 82 82 78 Respiratory Rate 20 20 20 Blood Pressure 113/44 L 113/44 L 117/42 L Pulse Oximetry 96 96 96 02/18/20 05:13 02/18/20 05:46 02/18/20 08:00 Temperature 98.2 F Pulse Rate 82 82 80 Respiratory Rate 20 Blood Pressure 96/50 L Pulse Oximetry 100 Intake/Output Intake/Output: Intake & Output 02/15/20 02/16/20 02/17/20 02/18/20 23:59 23:59 23:59 23:59 Intake Total 1358 1929 550 Output Total 1370 100 Balance 1358 559 450 Meds/Results Medications: Active Medications Generic Name Dose Route Start Last Admin Trade Name Freq PRN Reason Stop Dose Admin Albuterol 2 puff 02/16/20 14:53 Proventil Hfa INHALATION QIDRT PRN Shortness Of Breath Allopurinol 200 mg 02/17/20 17:00 02/18/20 08:02 Zyloprim PO 200 mg BID ARAMIS Administration Azithromycin 500 mg 02/17/20 20:00 02/17/20 20:54 Zithromax Tablet PO 500 mg HS ARAMIS Administration Benzonatate 200 mg 02/17/20 00:26 02/18/20 08:18 Tessalon Perles PO 200 mg DAILY PRN Administration Cough Budesonide/Formoterol Fumarate 2 puff 02/17/20 08:00 02/18/20 07:52 Symbicort 160-4.5 Mcg (*Sp) Inhaler INHALATION 2 puff Q12HRT ARAMIS Administration Furosemide 40 mg 02/18/20 09:00 02/18/20 08:02 Lasix Tablet PO 40 mg QAM ARAMIS Administration Ceftriaxone Sodium/Dextrose 1 gm in 50 mls @ 100 mls/hr 02/17/20 20:00 02/17/20 21:24 Rocephin 1 Gm/D5w 50 Ml IVPB Infused HS ARAMIS Infusion Lidocaine HCl 0.3 ml 02/17/20 09:03 Xylocaine 2% Local Inj INTRADERM ONCE PRN to numb area Metoprolol Tartrate 50 mg 02/17/20 18:00 02/18/20 05:46 Lopressor PO 50 mg Q12H ARAMIS Administration Morphine Sulfate 4 mg 02/16/20 14:53 Morphine Sulfate Inj IV PUSH Q2H PRN Pain Rated 7-10 Pantoprazole Sodium 40 mg 08/06/20 09:00 02/18/20 08:03 Protonix PO 40 mg QAM ARAMIS Administration Phenylephrine HCl 1 spray 02/17/20 00:33 02/17/20 00:45 Eliu-Synephrine 0.5% Nasal [place] EACH ALEXX
--- NOTE | 2020-02-18 11:21 | PM.PNCARD ---
Progress Note: A&P Assessment and Plan (1) Chronic a-fib: Code(s): I48.20 - Chronic atrial fibrillation, unspecified Status: Acute Assessment and Plan: Patient's AFib rate is now well controlled taking his usual metoprolol 50 mg b.i.d. okay for discharge from my point of view. Patient has an appointment to follow up with Dr. Rojo next week. 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 Torrez recommends holding Pradaxa for at least a week. (3) Acute upper GI bleed: Code(s): K92.2 - Gastrointestinal hemorrhage, unspecified Status: Acute Assessment and Plan: AVM cauterized yesterday, received 1 unit packed cells overnight. Hemoglobin improved from 6.9 up to 8.2. (4) Acute on chronic diastolic CHF (congestive heart failure): Code(s): I50.33 - Acute on chronic diastolic (congestive) heart failure Status: Acute Assessment and Plan: Had a mildly elevated BNP on admission of 3800, and a small left pleural effusion, Mildly productive cough, with a history of CHF. Not impressed with significant acute volume overload and his blood pressure is soft, but does have some mild CHF 2nd stress of anemia, a fib, and PRBC transfusion. Recommend increasing his usual furosemide 40 mg daily to 60 mg daily for 2 weeks. (5) Coronary artery disease involving [place] coronary artery of [place] heart without angina pectoris: Code(s): I25.10 - Atherosclerotic heart disease of [place] coronary artery without angina pectoris Status: Acute Assessment and Plan: History of CAD and CABG, stable. Subjective Date/time seen: 02/18/20 11:21 Patient with a history of persistent atrial fibrillation on chronic anticoagulation with Pradaxa, followed by Dr. Rojo. He was admitted with recurrent GI bleeding and had AFib RVR after Being NPO and missing his metoprolol. This was resumed yesterday. Endoscopy yesterday by Dr. Rachelle leevealed an actively bleeding AVM which was cauterized. Date of service: 02/18/2020 Patient received a unit of packed cells yesterday and is feeling well today up in about his room, going to the bathroom, no shortness of breath or chest discomfort. Had some oatmeal for breakfast and hopes to be discharged soon. Telemetry shows AFib rate 70s-80s. Review of Systems Constitutional: Constitutional: Reports no additional constitutional complaints and Denies weakness Eyes: Eyes: Reports no additional eye complaints ENT: Denies epistaxis Cardiovascular: Cardiovascular: Denies chest pain, Denies pedal edema and Denies palpitations Respiratory: Respiratory: Reports cough (Productive cough for the last few months) Gastrointestinal: Gastrointestinal: Denies abdominal pain, Denies melena and Denies hematochezia Genitourinary: Genitourinary: Denies hematuria Musculoskeletal: Musculoskeletal: Reports no additional musculoskeletal complaints Integumentary/Breasts: Skin/Breast: Denies rash Neurologic: Denies confusion Psychiatric: Psychiatric: Denies behavioral changes Exam Const: General: comfortable and no acute distress HENMT: Mouth: Yes moist mucous membranes Eyes: EOM: EOMs intact bilaterally Neck: Neck: supple and no JVD Resp: Auscultation: clear to auscultation bilaterally and no rales Cardio: Rate: regular rate Rhythm: abnormal rhythm irregularly irregular GI: Inspection: non-distended Other: soft and nontender Skin: General skin exam: no rashes or lesions noted Neuro: Speech: normal speech Motor exam (neuro): Normal motor muscle tone present throughout Extrem: General: no pedal edema Psych: Mental Status: mental status gr
[2020-02-18 11:37] LABS: Hematocrit 28.6 % (42.0-52.0); Hemoglobin 8.7 g/dL (14.0-18.0)
--- NOTE | 2020-02-18 12:49 | WPDANESPN ---
Anes - Prog Note Post-Op Date/Time: 02/18/20 12:49 Cardiovascular status: normal Respiratory status: normal Airway patency: baseline Mental status: baseline Post-Op hydration status: normal Vital Signs: Last Vital Signs Temp 36.8 C 02/18/20 08:00 Pulse 80 02/18/20 08:00 Resp 20 02/18/20 08:00 BP 96/50 L 02/18/20 08:00 Pulse Ox 100 02/18/20 08:00 I/O: Intake & Output 02/17/20 02/18/20 02/18/20 23:59 07:59 15:59 Intake Total 1279 550 Output Total 800 100 Balance 479 450 Laboratory Tests 02/18/20 11:27 02/18/20 06:44 02/16/20 02/17/20 02/18/20 13:03 20:31 00:45 WBC RBC Hgb 7.3 L 6.9 L* Hct 23.7 L 22.9 L MCV MCH MCHC RDW Plt Count MPV Sodium Potassium Chloride Carbon Dioxide Anion Gap BUN Creatinine Estim Creat Clear Calc Estimated GFR Glucose Calcium C-Reactive Protein Blood Type O Positive Antibody Screen Negative Crossmatch See Detail 02/18/20 02/18/20 02/18/20 06:44 06:44 11:27 WBC 9.8 RBC 3.06 L Hgb 8.2 L 8.7 L Hct 26.9 L 28.6 L MCV 87.9 MCH 26.8 MCHC 30.5 L RDW 16.0 H Plt Count 306 MPV 10.3 Sodium 131 L Potassium 4.2 Chloride 101 Carbon Dioxide 23 Anion Gap 11.2 BUN 19 Creatinine 0.90 Estim Creat Clear Calc 72 Estimated GFR > 60 Glucose 137 H Calcium 8.2 L C-Reactive Protein 5.5 H Blood Type Antibody Screen Crossmatch Post-procedural complaints: none Patient Feedback: Patient satisfied with anesthetic care.
--- NOTE | 2020-02-18 13:43 | PM.DS ---
DS: Admitting Diagnosis Admitting Diagnosis Admitting Diagnosis: Gastrointestinal hemorrhage, unspecified DS: Discharge Diagnosis Discharge Diagnosis (1) Acute upper GI bleed: Code(s): K92.2 - Gastrointestinal hemorrhage, unspecified Status: Acute Assessment and Plan: Underwent endoscopy on 02/[address] Torrez. 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 he will need to hold his Pradaxa for [address] Torrez's recommendations. He is to schedule an outpatient colonoscopy. (2) Anemia: Code(s): D64.9 - Anemia, unspecified Status: Acute Assessment and Plan: Normocytic. On review of prior labs, appears to be chronic but acutely worsened by active upper GI bleed. he required transfusion of 1 unit PRBC on 02/16/2020 and 02/18/2020. His H&H remained stable following his transfusion on 02/17. Suspect further improvement following treatment of acute GI bleed. He will need to obtain a repeat H&H on 02/22/2020. (3) Community acquired pneumonia: Code(s): J18.9 - Pneumonia, unspecified organism Status: Acute Assessment and Plan: CXR and chest CT show bibasilar airspace opacities consistent with pneumonia. He had had cough productive of yellow sputum and leukocytosis. He remained afebrile. he was started on IV Rocephin and azithromycin while inpatient. He maintained adequate oxygenation and did not require supplemental O2. He will continue p.o. cefdinir and azithromycin to complete a full course of antibiotics as an outpatient. (4) Chronic a-fib: Code(s): I48.20 - Chronic atrial fibrillation, unspecified Status: Acute Assessment and Plan: His rate is typically well controlled with metoprolol. Early am on 02/16, his rate increased to the 150s. He was moved to the IMU and started on a cardizem drip. This was more than likely due to holding metoprolol prior to EGD while he was NPO. Cardiology was consulted and recommended resuming typical metoprolol dose. He will need to hold Pradaxa for 1 week per GI recommendations. (5) COPD (chronic obstructive pulmonary disease): Code(s): J44.9 - Chronic obstructive pulmonary disease, unspecified Status: Acute Assessment and Plan: Chronic and stable. Continue bronchodilators. (6) Congestive heart failure: Code(s): I50.9 - Heart failure, unspecified Status: Chronic Assessment and Plan: EF unknown. His BNP was elevated on admission and he had a small left pleural effusion noted. Cardiology recommended increasing his Lasix to 60 mg daily for 2 weeks and then resuming typical 40 mg dose. Continue metoprolol and spironolactone. DS: Summary Hospital Course Reason for hospitalization: Shortness of breath Hospital Course: Date of admission: 02/16/2020 Date of discharge: 02/18/2020 Rubio Fenton is a 74-year-old male with a history of CHF, COPD, and several other comorbidities who presented to the emergency department on 02/16/2020 with complaints of shortness of breath and fatigue. He was referred to the emergency department by his chiropractor who was concerned for his shortness of breath. He also noted that he had been having black stools for 1 week. At presentation, WBC 14.5, H&H 7.4 in 24.6, platelets 323, BNP 3760, and CXR with bibasilar airspace opacities, small left pleural effusion, and cardiomegaly. He was admitted to the hospitalist service and was seen in consultation by gastroenterology and cardiology. His H&H was monitored and he underwent blood transfusion as above. He was found to have a duodenal angioectasia that was cauterized and his H&H stabilized following. He was treated for pneumonia with antibiotics that he will continue as an outpatient. He will need to have outpatient labs drawn in several days to monitor his H&H. Please see above for further details. He began feeling much better and was anxious for
--- NOTE | 2020-02-18 13:44 | PC.NURSE ---
HGB 8.7 on recheck
== END 2020-02-18 14:48 | disposition home or self-care (01) ==
LOC: ANHED 14:59 → ANH2MED 16:44 → ANHIMU 02-17 09:35 → ANH2MED 02-22 09:00 → ANHIMU 02-22 09:00
PROVIDERS: Internal Medicine Gastroenterology; Physician Assistant; Admitting Provider Internal Medicine; Emergency Provider General Practice; PCP Family Medicine; Visit Provider Family Medicine
PROC: 0DJ08ZZ Inspection of Upper Intestinal Tract, Via Natural or Artificial Opening Endoscopic (ICD-10-PCS; CPT 43235; principal; 2020-02-17 10:00)
DX: K31.811 Angiodysplasia of stomach and duodenum with bleeding (principal); J18.9 Pneumonia, unspecified organism; D64.9 Anemia, unspecified; I48.20 Chronic atrial fibrillation, unspecified; I50.33 Acute on chronic diastolic (congestive) heart failure; I25.10 Atherosclerotic heart disease of native coronary artery without angina pectoris; I71.9 Aortic aneurysm of unspecified site, without rupture; J44.9 Chronic obstructive pulmonary disease, unspecified; E78.5 Hyperlipidemia, unspecified; Z79.01 Long term (current) use of anticoagulants; Z87.891 Personal history of nicotine dependence; Z86.010 Personal history of colon polyps
CPT/HCPCS: 43255; 36415; 36430; 36600; 71045; 71260; 72072; 74177; 80048; 80053; 81001; 82375; 82805; 83050; 83605; 83735; 83880; 85014; 85018; 85025; 85027; 85610; 85730; 86140; 86850; 86900; 86901; 86920; 93005; 94640; 96361; 96365; 96375; 96376; 99285; A9270; C9113; G0378; J0696; J2704; J7030; J7050; J7120; P9016; Q9967

== ENCOUNTER 2020-02-22 08:03 | Outpatient (CLI) | payer MEDICARE, SELFPAY ==
[2020-02-22 08:29] LABS: Hematocrit 29.2 % (42.0-52.0); Hemoglobin 8.8 g/dL (14.0-18.0)
[2020-02-22 08:41] LABS: Anion Gap 9 mmol/L (8-16); Blood Urea Nitrogen 27 mg/dL (9-20); Calcium 8.5 mg/dL (8.4-10.2); Carbon Dioxide 27 mmol/L (22-30); Chloride 96 mmol/L (98-107); Estimated Glomerular Filt Rate 59; Glucose 167 mg/dL (75-110); Potassium 4.1 mmol/L (3.4-5.0); Sodium 132 mmol/L (137-145)
== END 2020-02-22 08:04 | disposition home or self-care (01) ==
PROVIDERS: Physician Assistant; Family Provider Family Medicine; PCP Family Medicine; Referring Provider Internal Medicine Cardiovascular Disease; Visit Provider Nurse Practitioner Adult Health
DX: I50.9 Heart failure, unspecified (principal); D64.9 Anemia, unspecified; K92.2 Gastrointestinal hemorrhage, unspecified
CPT/HCPCS: 36415; 80048; 85014; 85018

== ENCOUNTER 2020-02-27 08:38 | Emergency (ER) | payer MEDICARE, SELFPAY ==
--- NOTE | ~2020-02-27 | US_ITS ---
EXAMINATION: US venous doppler UE RT DATE: 02/27/2020 09:30 INDICATION: Right upper limb swelling. TECHNIQUE: Grayscale ultrasound images without and with compression and Doppler ultrasound images of the right upper extremity veins were obtained. COMPARISON: None. FINDINGS: The visualized portions of the right internal jugular vein, subclavian vein, axillary vein, brachial veins, basilic vein, radial vein, and ulnar vein are patent. There is thrombus in right cephalic vein . IMPRESSION: 1. No deep venous thrombosis. 2. Thrombus in right cephalic vein, which is a superficial vein. Reviewed, dictated and finalized at location A.
[2020-02-27 08:44] VITALS: BP 107/51; PULSE 84; RESP 18; TEMP 36.5; O2SAT 97
[2020-02-27 09:49] VITALS: BP 104/63; PULSE 99; RESP 18; O2SAT 96
--- NOTE | 2020-02-27 09:58 | ED.UPPEXIN ---
HPI - Extremity Injury (Upper) General Chief Complaint: Extremity Injury, Upper Stated Complaint: right hand hurting after blood gas Time Seen by Provider: 02/27/20 08:51 Source: patient Mode of arrival: ambulatory Limitations: no limitations History of Present Illness HPI narrative: This patient is a 74 year old male who presents for evaluation of right hand swelling and pain. This patient was admitted to [facility] on 02/16/20 . He states he had an arterial blood gas performed on his right wrist. He had some mild pain at site of arterial puncture initially after the procedure. He states that pain resolved after a couple days. He reports now his having swelling to his right hand and he is having tightness to hand when he tries to post partum nurse an object. He denies numbness or tingling or other focal weakness. Related Data Home Medications Medication Instructions Recorded Confirmed allopurinol 100 mg tablet 200 mg PO BID tablet 05/22/19 02/17/20 metoprolol tartrate 50 mg tablet 50 mg PO Q12H tablet 05/22/19 02/16/20 spironolactone 25 mg tablet 25 mg PO DAILY 05/22/19 02/16/20 budesonide-formoterol HFA 160 2 puff INHALATION Q12H 09/16/19 02/16/20 mcg-4.5 mcg/actuation aerosol inhaler pravastatin 20 mg tablet 20 mg PO BID tablet 11/17/19 02/16/20 acetaminophen [Tylenol 8 Hour] 650 mg PO Q8H PRN 02/03/20 02/16/20 benzonatate 200 mg PO PRN PRN 02/16/20 02/16/20 Allergies Allergy/AdvReac Type Severity Reaction Status Date / Time No Known Allergies Allergy Mild Verified 02/27/20 08:47 Review of Systems Review of Systems: All systems reviewed & are unremarkable except as noted in HPI and below Constitutional: Constitutional: Denies chills and Denies fever(s) [facility] Past Medical History Medical History Acute on chronic diastolic CHF (congestive heart failure) Aortic aneurysm of unspecified site, without rupture CTA chest 10/30/2018 mild aneurysmal dilatation of the ascending thoracic aorta 4.4 cm Aortic valve insufficiency 12/09/2019 moderate to severe Chronic a-fib Chronic gout Congestive heart failure pseudo diastolic dysfunction grade 2 COPD (chronic obstructive pulmonary disease) Coronary artery disease involving tetlin coronary artery of tetlin heart without angina pectoris Diverticulosis of intestine, part unspecified, without perforation or abscess with bleeding Hyperlipidemia Hypertensive heart disease without heart failure IFG (impaired fasting glucose) Iron deficiency anemia due to chronic blood loss intermediate frame tender (current) 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 Jennie Valverde 04/16/2012 S/P hip replacement S/P pulmonary valve replacement Social History Social History Social History: the patient lives with his and she is a durable power dietary director for healthcare. He desires to be full code. He is retired from [employer]. He has 2 children. He is a former smoker. Occasionally has a beer. Smoking packs per day: 2 Smoking cigarettes per day: 40.0 Years smoked: 30 Smoking pack-years: 60.00 Smoking status: Former smoker Tobacco type: cigarettes Second hand tobacco smoke exposure: Yes Smoking end date: 07/15/78 Alcohol intake: never Drinks per week: 4 Substance use: never Substance use type: does not use Gender identity (if verbalized by the patient): Male Spiritual care concerns: No Exam Const: General: alert Orientation/consciousness: patient oriented x
== END 2020-02-27 10:24 | disposition home or self-care (01) ==
PROVIDERS: Emergency Provider General Practice; PCP Family Medicine
DX: M25.441 Effusion, right hand (principal); I82.611 Acute embolism and thrombosis of superficial veins of right upper extremity; I35.1 Nonrheumatic aortic (valve) insufficiency; I48.20 Chronic atrial fibrillation, unspecified; M1A.9XX0 Chronic gout, unspecified, without tophus (tophi); I50.9 Heart failure, unspecified; J44.9 Chronic obstructive pulmonary disease, unspecified; E78.5 Hyperlipidemia, unspecified; Z98.42 Cataract extraction status, left eye; Z98.41 Cataract extraction status, right eye; Z95.1 Presence of aortocoronary bypass graft; I25.10 Atherosclerotic heart disease of native coronary artery without angina pectoris; Z96.641 Presence of right artificial hip joint; Z95.2 Presence of prosthetic heart valve; Z87.891 Personal history of nicotine dependence
CPT/HCPCS: 93971; 99284

== ENCOUNTER 2020-03-01 13:28 | Outpatient (CLI) | payer MEDICARE, SELFPAY ==
[2020-03-01 13:47] LABS: Hematocrit 26.1 % (42.0-52.0); Hemoglobin 7.8 g/dL (14.0-18.0); Mean Corpuscular HGB Conc 29.9 g/dl (32-36); Mean Corpuscular Hemoglobin 24.5 pg (26-34); Mean Corpuscular Volume 81.8 fl (80-100); Mean Platelet Volume 9.6 fl (7.4-10.4); Platelet Count Result 342 k/mm3 (150-375); Red Blood Count 3.19 M/mm3 (4.6-6.20); Red Cell Distribution Width 17.3 % (11.5-14.5)
== END 2020-03-01 13:29 | disposition home or self-care (01) ==
PROVIDERS: PCP Family Medicine; Visit Provider Family Medicine
DX: D64.9 Anemia, unspecified (principal)
CPT/HCPCS: 36415; 85027

== ENCOUNTER 2020-03-14 07:43 | Outpatient (CLI) | payer MEDICARE, SELFPAY ==
[2020-03-14 08:26] LABS: Hemoglobin 8.2 g/dL (14.0-18.0); Mean Corpuscular HGB Conc 29.3 g/dl (32-36); Mean Corpuscular Hemoglobin 23.6 pg (26-34); Mean Corpuscular Volume 80.7 fl (80-100); Mean Platelet Volume 9.9 fl (7.4-10.4); Platelet Count Result 293 k/mm3 (150-375); Red Blood Count 3.47 M/mm3 (4.6-6.20); Red Cell Distribution Width 18.6 % (11.5-14.5); White Blood Count 8.1 K/mm3 (4.5-10.0)
== END 2020-03-14 07:44 | disposition home or self-care (01) ==
LOC: ANHLAB 07:45
PROVIDERS: PCP Family Medicine; Visit Provider Family Medicine
DX: D64.9 Anemia, unspecified (principal)
CPT/HCPCS: 36415; 85027

== ENCOUNTER 2020-03-18 07:52 | Outpatient (CLI) | payer MEDICARE, SELFPAY ==
[2020-03-18 08:33] LABS: Hematocrit 26.3 % (42.0-52.0); Hemoglobin 7.9 g/dL (14.0-18.0); Mean Corpuscular Hemoglobin 23.5 pg (26-34); Mean Corpuscular Volume 78.3 fl (80-100); Mean Platelet Volume 9.8 fl (7.4-10.4); Platelet Count Result 298 k/mm3 (150-375); Red Blood Count 3.36 M/mm3 (4.6-6.20); Red Cell Distribution Width 18.5 % (11.5-14.5); White Blood Count 7.8 K/mm3 (4.5-10.0)
== END 2020-03-18 07:53 | disposition home or self-care (01) ==
PROVIDERS: PCP Family Medicine; Visit Provider Family Medicine
DX: D64.9 Anemia, unspecified (principal)
CPT/HCPCS: 36415; 85027

== ENCOUNTER 2020-03-22 02:01 | Outpatient (CLI) | payer MEDICARE, SELFPAY ==
[2020-03-22 17:03] LABS: SARS-CoV-2 RNA PCR Negative
== END 2020-03-22 02:02 | disposition home or self-care (01) ==
LOC: ANHCOVIDDT 02:01
PROVIDERS: PCP Family Medicine; Visit Provider Internal Medicine Gastroenterology
DX: Z01.812 Encounter for preprocedural laboratory examination (principal); Z20.828 Contact with and (suspected) exposure to other viral communicable diseases
CPT/HCPCS: 36415; 85027; 87635; C9803; U0003

== ENCOUNTER 2020-03-22 07:43 | Outpatient (CLI) | payer MEDICARE, SELFPAY ==
[2020-03-22 08:07] LABS: Hematocrit 25.9 % (42.0-52.0); Hemoglobin 7.5 g/dL (14.0-18.0); Mean Corpuscular Hemoglobin 22.7 pg (26-34); Mean Corpuscular Volume 78.2 fl (80-100); Mean Platelet Volume 9.7 fl (7.4-10.4); Platelet Count Result 327 k/mm3 (150-375); Red Blood Count 3.31 M/mm3 (4.6-6.20); Red Cell Distribution Width 18.6 % (11.5-14.5); White Blood Count 8.9 K/mm3 (4.5-10.0)
== END 2020-03-22 07:44 | disposition home or self-care (01) ==
LOC: ANHLAB 07:45
PROVIDERS: PCP Family Medicine; Visit Provider Family Medicine
DX: D64.9 Anemia, unspecified (principal)
CPT/HCPCS: 36415; 85027

== ENCOUNTER 2020-03-24 00:02 | Day surgery (SDC) | payer MEDICARE, SELFPAY ==
[2020-03-14 15:30] VITALS: BMI 31.7
[2020-03-24 08:01] VITALS: BP 114/61; PULSE 102; RESP 17; TEMP 36.3; BMI 30.4
[2020-03-24] MEDS: LACTATED RINGERS 1,000 ML 150 ML IV CONT (08:15)
--- NOTE | 2020-03-24 08:16 | P.PNAN_ITS ---
Anes - Initial Pre Proc Eval Procedure: Operation Date: 03/24/20 08:30 Proposed Procedures p Colonoscopy - Jaxon Torrez MD Date/Time: 03/24/20 08:16 Surgeon: Jaxon Torrez MD Pre Op Diagnosis: melena, GI bleed Patient Data Age: 74 Gender: M Height: 1.75 m Weight: 93.7 kg Last Vital Signs Temp 36.3 C L 03/24/20 08:01 Pulse 102 H 03/24/20 08:01 Resp 17 03/24/20 08:01 BP 114/61 03/24/20 08:01 Allergies Allergy/AdvReac Type Severity Reaction Status Date / Time No Known Allergies Allergy Mild Verified 03/24/20 07:55 Home Medications Medication Instructions Recorded Confirmed Type allopurinol 100 mg tablet 200 mg PO BID tablet 05/22/19 03/24/20 History metoprolol tartrate 50 mg tablet 50 mg PO Q12H tablet 05/22/19 03/24/20 History spironolactone 25 mg tablet 25 mg PO DAILY 05/22/19 03/24/20 History budesonide-formoterol HFA 160 2 puff INHALATION Q12H 09/16/19 03/24/20 History mcg-4.5 mcg/actuation aerosol inhaler pravastatin 20 mg tablet 20 mg PO BID tablet 11/17/19 03/24/20 History acetaminophen [Tylenol 8 Hour] 650 mg PO Q8H PRN 02/03/20 03/24/20 History benzonatate 200 mg PO PRN PRN 02/16/20 03/14/20 History pantoprazole 40 mg PO QAM #30 tablet 02/18/20 03/24/20 Rx dabigatran etexilate [Pradaxa] 150 mg PO BID 03/14/20 03/24/20 History furosemide 40 mg PO DAILY 03/14/20 03/24/20 History doxycycline hyclate 100 mg PO BID 03/24/20 03/24/20 History Patient hx anesthesia problems: none Family hx anesthesia problems: none PMFSH Social History Social History Social History: the patient lives with his and she is a durable power 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 He desires to be full code. He is retired from [employer]. He has 2 children. He is a former smoker. Occasionally has a beer. Smoking packs per day: 2 Smoking cigarettes per day: 40.0 Years smoked: 30 Smoking pack-years: 60.00 Smoking status: Former smoker Tobacco type: cigarettes Second hand tobacco smoke exposure: Yes Smoking end date: 07/15/78 Alcohol intake: current Drinks per week: 4 Substance use: never Substance use type: does not use Living arrangements: alone Gender identity (if verbalized by the patient): Male Spiritual care concerns: No Anes - Eval Final PreProcedure Day of Procedure 03/24/20 08:16 Patient weight: obese Heart: regular rate and rhythm Lungs: clear to auscultation and normal air movement Airway: Mallampati scale class II Neurological: alert and oriented Last oral intake: >/= 8 hours ASA classification: IV Emergent: no Anesthetic plan: proceed Anesthesia type and monitoring: general GIVS Informed Consent: The patient's anesthetic plan and its attendant risks and benefits were discussed with the patient/family/POA. Questions were solicited and answers provided to the satisfaction of the patient/family/POA.
[2020-03-24] MEDS: GENTAMICIN 80MG/SOD CHL 50 ML 80 MG/50 ML BAG 100 MG IVPB (08:17)
--- NOTE | 2020-03-24 08:34 | WPDGICN ---
Assessment and Plan Assessment and plan (1) History of colon polyps: Code(s): Z86.010 - Personal history of colonic polyps Status: Acute Assessment and Plan: Patient has a history of colon polyps last colonoscopy was 5 years ago. Plan is for surveillance exam at this time. Patient has had recent GI blood loss attributed angiodysplasias of the duodenum. Additional angiodysplasias in the more distal intestinal tract cannot be excluded. Colonoscopy will be performed today. (2) Anemia: Code(s): D64.9 - Anemia, unspecified Status: Acute Assessment and Plan: Patient with anemia. Likely secondary to slow blood loss from angiodysplasias. Other etiologies are likely concomitant. Plan is to continue monitor hemoglobin closely transfuse as necessary. This is complicated by his use of anticoagulation. (3) live hanger (current) use of anticoagulants: Code(s): Z79.01 - live hanger (current) use of anticoagulants Status: Acute Assessment and Plan: Patient on Pradaxa anticoagulation because of atrial fibrillation. It this will be held for colonoscopy. Need to monitor hemoglobin closely while on Pradaxa. Iron replacement may also be of some benefit. (4) Chronic a-fib: Code(s): I48.20 - Chronic atrial fibrillation, unspecified Status: Acute (5) Angiodysplasia of duodenum: Code(s): K31.819 - Angiodysplasia of stomach and duodenum without bleeding Status: Acute Assessment and Plan: Recent EGD with cautery of angiodysplasias. These may be present in the more distal bowel. Plan is to monitor hemoglobin closely. He may need occasional follow-up endoscopies in the future. GI Consult Note Consult date/time: 03/24/20 08:34 HPI: Rubio Fenton is a 74 year old male Seen for evaluation of blood loss anemia, history of colon polyps and history of melena. Patient has a history of atrial fibrillation is on chronic Pradaxa anticoagulation. This has been held because of recent GI bleeding. Patient hospitalized with melena and anemia. An EGD was identified as having angiodysplasias of the duodenum. Patient presents today for colonoscopy to search for additional angiodysplasias. Patient has a history of colonoscopy 5 years ago that showed colon polyps. He has had no recent GI blood loss. Stools appeared normal. He denies abdominal pain. He has received intermittent rather frequent blood transfusions recently. Family history is noncontributory. Review of Systems Review of Systems: All systems reviewed & are unremarkable except as noted in HPI and below PMFSH Past Medical History Medical History Acute on chronic diastolic CHF (congestive heart failure) Aortic aneurysm of unspecified site, without rupture CTA chest 10/30/2018 mild aneurysmal dilatation of the ascending thoracic aorta 4.4 cm Aortic valve insufficiency 12/09/2019 moderate to severe Chronic a-fib Chronic gout Congestive heart failure pseudo diastolic dysfunction grade 2 COPD (chronic obstructive pulmonary disease) Coronary artery disease involving craig coronary artery of craig heart without angina pectoris Diverticulosis of intestine, part unspecified, without perforation or abscess with bleeding Hyperlipidemia Hypertensive heart disease without heart failure IFG (impaired fasting glucose) Iron deficiency anemia due to chronic blood loss residential (current) 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 Jennie Valverde 04/16/2012 S/P hip replacement S/P pulmon
[2020-03-24 09:20] VITALS: BP 104/55; PULSE 75; RESP 41; O2SAT 96
[2020-03-24 09:30] VITALS: BP 103/55; PULSE 95; RESP 26; O2SAT 96
[2020-03-24 09:40] VITALS: BP 116/64; PULSE 79; RESP 24; O2SAT 96
== END 2020-03-24 10:15 | disposition home or self-care (01) ==
PROVIDERS: PCP Family Medicine; Visit Provider Internal Medicine Gastroenterology
PROC: 0DJD8ZZ Inspection of Lower Intestinal Tract, Via Natural or Artificial Opening Endoscopic (ICD-10-PCS; CPT 45378; principal; 2020-03-24 08:30)
DX: D64.9 Anemia, unspecified (principal); K92.1 Melena; K64.8 Other hemorrhoids; Z86.010 Personal history of colon polyps; K31.819 Angiodysplasia of stomach and duodenum without bleeding; I48.20 Chronic atrial fibrillation, unspecified; I11.0 Hypertensive heart disease with heart failure; I50.32 Chronic diastolic (congestive) heart failure; I71.4 Abdominal aortic aneurysm, without rupture; I35.1 Nonrheumatic aortic (valve) insufficiency; I25.10 Atherosclerotic heart disease of native coronary artery without angina pectoris; Q21.1 Atrial septal defect; E78.5 Hyperlipidemia, unspecified; M10.9 Gout, unspecified; Z79.01 Long term (current) use of anticoagulants; Z87.891 Personal history of nicotine dependence; E66.9 Obesity, unspecified; Z68.30 Body mass index [BMI] 30.0-30.9, adult; Z95.1 Presence of aortocoronary bypass graft; Z95.4 Presence of other heart-valve replacement
CPT/HCPCS: 45378; 36415; 85025; J1580; J2704; J7120

== ENCOUNTER 2020-03-24 10:30 | Outpatient (CLI) | payer MEDICARE, SELFPAY ==
[2020-03-24 11:12] LABS: Basophils Absolute Auto 0.1 K/mm3 (0.0-0.1); Basophils Percent Auto 0.6 % (0.2-1.2); Eosinophils Absolute Auto 0.1 K/mm3 (0-0.3); Eosinophils Percent Auto 1.6 % (0-4.4); Hematocrit 25.6 % (42.0-52.0); Hemoglobin 7.2 g/dL (14.0-18.0); Immature Granulocyte Absolute 0.05 K/mm3 (0.00-0.031); Immature Granulocyte Percent A 0.6 % (0-0.5); Lymphocytes Absolute Auto 2.32 K/mm3 (0.9-3.2); Lymphocytes Percent Auto 29.2 % (18.3-44.2); Mean Corpuscular HGB Conc 28.1 g/dl (32-36); Mean Corpuscular Hemoglobin 21.7 pg (26-34); Mean Corpuscular Volume 77.1 fl (80-100); Monocytes Absolute Auto 0.8 K/mm3 (0.1-0.6); Monocytes Percent Auto 9.6 % (2.6-8.5); Neutrophils Absolute Auto 4.6 K/mm3 (1.3-6.7); Neutrophils Percent Auto 58.4 % (45.5-73.1); Nucleated Red Blood Cells Absolute Auto 0.1 K/mm3 (0.0-0.012); Nucleated Red Blood Cells Perc 0.8 % (0.0-0.2); Platelet Count Result 297 k/mm3 (150-375); Red Blood Count 3.32 M/mm3 (4.6-6.20); Red Cell Distribution Width 18.7 % (11.5-14.5); White Blood Count 7.9 K/mm3 (4.5-10.0)
== END 2020-03-24 10:31 | disposition home or self-care (01) ==
LOC: ANHLAB 10:32
PROVIDERS: PCP Family Medicine; Visit Provider Family Medicine
DX: D64.9 Anemia, unspecified (principal)
CPT/HCPCS: 36415; 85025

== ENCOUNTER 2020-03-28 07:48 | Outpatient (CLI) | payer MEDICARE, SELFPAY ==
[2020-03-28 08:29] LABS: Hematocrit 22.7 % (42.0-52.0); Mean Corpuscular HGB Conc 29.1 g/dl (32-36); Mean Corpuscular Volume 75.7 fl (80-100); Platelet Count Result 232 k/mm3 (150-375); Red Cell Distribution Width 19.3 % (11.5-14.5); White Blood Count 6.5 K/mm3 (4.5-10.0)
[2020-03-28 08:39] LABS: Hemoglobin 6.6 g/dL (14.0-18.0)
== END 2020-03-28 07:49 | disposition home or self-care (01) ==
PROVIDERS: PCP Family Medicine; Visit Provider Family Medicine
DX: D64.9 Anemia, unspecified (principal)
CPT/HCPCS: 36415; 85027

== ENCOUNTER 2020-03-29 07:10 | Outpatient (RCR) | payer MEDICARE, SELFPAY ==
[2020-03-03] VITALS (10 sets, daily range): BP systolic 91–125; BP diastolic 46–77; PULSE 68–88; RESP 15–20; TEMP 36.5–36.9; O2SAT 97–99
[2020-03-03 07:18] LABS: Hematocrit 25.8 % (42.0-52.0); Hemoglobin 7.6 g/dL (14.0-18.0); Mean Corpuscular HGB Conc 29.5 g/dl (32-36); Mean Corpuscular Hemoglobin 24.3 pg (26-34); Mean Corpuscular Volume 82.4 fl (80-100); Mean Platelet Volume 9.9 fl (7.4-10.4); Platelet Count Result 329 k/mm3 (150-375); Red Blood Count 3.13 M/mm3 (4.6-6.20); Red Cell Distribution Width 17.5 % (11.5-14.5); White Blood Count 7.6 K/mm3 (4.5-10.0)
[2020-03-29] VITALS (10 sets, daily range): BP systolic 95–110; BP diastolic 44–68; PULSE 60–84; RESP 16; TEMP 36.3–36.8; O2SAT 99–100
[2020-03-29] MEDS: SODIUM CHLORIDE 0.9% IV 250 ML 30 ML IV CONT (08:30)
== END 2020-06-01 23:59 | disposition home or self-care (01) ==
LOC: ANHCPCTRAN 07:10
PROVIDERS: PCP Family Medicine; Visit Provider Family Medicine
DX: D64.9 Anemia, unspecified (principal)
CPT/HCPCS: 36415; 36430; 85027; 86850; 86900; 86901; 86923; J7050; P9016

== ENCOUNTER 2020-04-11 14:10 | Outpatient (CLI) | payer MEDICARE, SELFPAY ==
[2020-04-11 14:27] LABS: Basophils Percent Auto 0.5 % (0.2-1.2); Eosinophils Absolute Auto 0.3 K/mm3 (0-0.3); Eosinophils Percent Auto 3.4 % (0-4.4); Hematocrit 32.5 % (42.0-52.0); Hemoglobin 9.3 g/dL (14.0-18.0); Immature Granulocyte Absolute 0.03 K/mm3 (0.00-0.031); Immature Granulocyte Percent A 0.4 % (0-0.5); Immature Reticulocyte Fraction 29.2 % (3.0-15.9); Lymphocytes Absolute Auto 2.08 K/mm3 (0.9-3.2); Lymphocytes Percent Auto 27.9 % (18.3-44.2); Mean Corpuscular HGB Conc 28.6 g/dl (32-36); Mean Corpuscular Hemoglobin 22.2 pg (26-34); Mean Corpuscular Volume 77.6 fl (80-100); Mean Platelet Volume 8.9 fl (7.4-10.4); Monocytes Absolute Auto 0.8 K/mm3 (0.1-0.6); Neutrophils Absolute Auto 4.2 K/mm3 (1.3-6.7); Neutrophils Percent Auto 56.8 % (45.5-73.1); Platelet Count Result 353 k/mm3 (150-375); Red Blood Count 4.19 M/mm3 (4.6-6.20); Red Cell Distribution Width 20.7 % (11.5-14.5); Reticulocyte Hemoglobin Conten 23.3 pg (28.2-35.7); Reticulocyte Percent 3.19 % (0.7-4.3); Reticulocytes Absolute 0.13 B/L (32.2-175.7); White Blood Count 7.5 K/mm3 (4.5-10.0)
[2020-04-11 14:36] LABS: Hypochromasia 1+ (NORMAL); Platelet Estimate Adequate (Adequate)
[2020-04-11 14:37] LABS: Ovalocytes 1+ (NORMAL); Poikilocytosis 1+ (NORMAL)
[2020-04-11 16:59] LABS: Alanine Aminotransferase 8 U/L (4-50); Albumin Level 3.7 g/dL (3.5-5.1); Alkaline Phosphatase 125 U/L (38-126); Anion Gap 10 mmol/L (8-16); Aspartate Amino Transferase 24 U/L (17-59); Bilirubin,Total 1.3 mg/dL (0.2-1.3); Blood Urea Nitrogen 19 mg/dL (9-20); Calcium 9.2 mg/dL (8.4-10.2); Carbon Dioxide 27 mmol/L (22-30); Chloride 99 mmol/L (98-107); Estimated Glomerular Filt Rate > 60; Glucose 122 mg/dL (75-110); Lactate Dehydrogenase 424 U/L (313-618); Potassium 4.4 mmol/L (3.4-5.0); Sodium 136 mmol/L (137-145)
[2020-04-11 17:36] LABS: Iron 30 ug/dL (49-181); Percent Iron Saturation 7 % (20-50)
[2020-04-16 15:41] LABS: Soluble Transferrin Receptor 6.86 mg/L (0.76-1.76)
== END 2020-04-11 14:11 | disposition home or self-care (01) ==
PROVIDERS: PCP Family Medicine; Visit Provider Internal Medicine Hematology & Oncology
DX: D64.9 Anemia, unspecified (principal)
CPT/HCPCS: 36415; 80053; 82607; 82728; 82746; 83540; 83550; 83615; 84238; 84443; 85025; 85046

== ENCOUNTER 2020-04-18 12:06 | Outpatient (RCR) | payer MEDICARE, SELFPAY ==
[2020-04-18 13:00] VITALS: BMI 32.9
== END 2020-06-22 13:27 | disposition home or self-care (01) ==
LOC: ANHWOC 12:06
PROVIDERS: PCP Family Medicine; Visit Provider Family Medicine
DX: L89.329 Pressure ulcer of left buttock, unspecified stage (principal)
CPT/HCPCS: 99212; G0463

== ENCOUNTER 2020-04-20 07:45 | Outpatient (CLI) | payer MEDICARE, SELFPAY ==
[2020-04-20 08:08] LABS: Hematocrit 30.9 % (42.0-52.0); Hemoglobin 9.1 g/dL (14.0-18.0)
== END 2020-04-20 07:46 | disposition home or self-care (01) ==
PROVIDERS: PCP Family Medicine; Visit Provider Physician Assistant
DX: D64.9 Anemia, unspecified (principal)
CPT/HCPCS: 36415; 85014; 85018

== ENCOUNTER 2020-11-14 07:12 | Outpatient (CLI) | payer MEDICARE, SELFPAY ==
[2020-11-14 07:40] LABS: Hematocrit 44.9 % (42.0-52.0); Hemoglobin 14.8 g/dL (14.0-18.0); Immature Platelet Fraction Pct 5.1 % (0.9-11.2); Mean Corpuscular Volume 100.2 fl (80-100); Mean Platelet Volume 10.4 fl (7.4-10.4); Platelet Count Result 130 k/mm3 (150-375); Red Blood Count 4.48 M/mm3 (4.6-6.20); Red Cell Distribution Width 15.3 % (11.5-14.5); White Blood Count 6.9 K/mm3 (4.5-10.0)
[2020-11-14 07:48] LABS: Alanine Aminotransferase 12 U/L (4-50); Albumin Level 3.8 g/dL (3.5-5.1); Alkaline Phosphatase 79 U/L (38-126); Anion Gap 4 mmol/L (8-16); Aspartate Amino Transferase 23 U/L (17-59); Bilirubin,Total 1.9 mg/dL (0.2-1.3); Blood Urea Nitrogen 20 mg/dL (9-20); Carbon Dioxide 28 mmol/L (22-30); Chloride 103 mmol/L (98-107); Cholesterol 101 mg/dL (0-200); Estimated Glomerular Filt Rate > 60; Glucose 125 mg/dL (75-110); HDL Direct 34 mg/dL; Potassium 4.6 mmol/L (3.4-5.0); Sodium 135 mmol/L (137-145); Triglycerides 65 mg/dL (<150)
[2020-11-14 07:59] LABS: LDL Cholesterol Direct 53 mg/dL
[2020-11-14 08:31] LABS: Add Urine Microscopic? NO; Appearance Urine Clear (Clear); Bilirubin Urine Negative (Negative); Blood Urine Negative (Negative); Color Urine Yellow (Yellow); Glucose Urine UA Negative (Negative); Ketones Urine Negative (Negative); Leukocyte Esterase Ur Negative LEU/UL (NEGATIVE); Nitrate Urine Negative (Negative); Protein Urine Negative (Negative); Specific Grav Ur 1.013 (1.001-1.035); Urobilinogen Urine Negative mg/dL (<2.0)
== END 2020-11-14 07:13 | disposition home or self-care (01) ==
PROVIDERS: PCP Family Medicine; Visit Provider Family Medicine
DX: D50.0 Iron deficiency anemia secondary to blood loss (chronic) (principal); E78.5 Hyperlipidemia, unspecified; I11.9 Hypertensive heart disease without heart failure; I48.20 Chronic atrial fibrillation, unspecified; R73.01 Impaired fasting glucose; H35.63 Retinal hemorrhage, bilateral
CPT/HCPCS: 36415; 80053; 80061; 81003; 84443; 85027; 85055

== ENCOUNTER 2021-01-26 08:29 | Outpatient (CLI) | payer MEDICARE, SELFPAY ==
--- NOTE | 2021-01-26 08:30 | ECG_ITS ---
Measurements Intervals [place] Rate: 72 P: NV: 0 QRS: 63 QRSD: 91 T: -1 QT: 414 QTc: 454 Interpretive Statements ATRIAL FIBRILLATION INCOMPLETE RIGHT BUNDLE BRANCH BLOCK LOW QRS VOLTAGE IN PRECORDIAL LEADS BORDERLINE R WAVE PROGRESSION, ANTERIOR LEADS CONSIDER INFERIOR INFARCT, AGE INDETERMINATE BASELINE ARTIFACT- I, II, III, AVR, AVL, AVF, V4-V6 ABNORMAL ECG Electronically Signed On 01-26-2021 8:53:43 CDT by Tucker Shultz D.O.
[2021-01-26 09:15] LABS: Hematocrit 49.8 % (42.0-52.0); Hemoglobin 16.7 g/dL (14.0-18.0)
[2021-01-26 09:27] LABS: Anion Gap 7 mmol/L (8-16); Blood Urea Nitrogen 19 mg/dL (9-20); Calcium 9.5 mg/dL (8.4-10.2); Carbon Dioxide 30 mmol/L (22-30); Chloride 98 mmol/L (98-107); Estimated Glomerular Filt Rate > 60; Glucose 121 mg/dL (75-110); Potassium 4.7 mmol/L (3.4-5.0); Sodium 135 mmol/L (137-145)
== END 2021-01-26 08:30 | disposition home or self-care (01) ==
LOC: ANHSURGERY 08:34
PROVIDERS: Anesthesiology; PCP Family Medicine; Visit Provider Urology
DX: I10 Essential (primary) hypertension (principal); D64.9 Anemia, unspecified; K62.89 Other specified diseases of anus and rectum; I48.91 Unspecified atrial fibrillation; R94.31 Abnormal electrocardiogram [ECG] [EKG]; I45.10 Unspecified right bundle-branch block
CPT/HCPCS: 36415; 80048; 85014; 85018; 87077; 87086; 87088; 93005

== ENCOUNTER 2021-01-31 01:07 | Day surgery (SDC) | payer MEDICARE, SELFPAY ==
[2021-01-23 14:25] VITALS: BMI 32.3
--- NOTE | 2021-01-30 10:18 | WPDANESEPPF ---
Anes - Initial Pre Proc Eval Procedure: Operation Date: 01/31/21 12:30 Proposed Procedures p Irrigation and Debridement of Perineal Abscess - Martin Suggs MD Date/Time: 01/30/21 10:18 Surgeon: Martin Suggs MD Pre Op Diagnosis: peroneal abscess Patient Data Age: 75 Gender: M Height: 1.78 m Weight: 102.1 kg Allergies Allergy/AdvReac Type Severity Reaction Status Date / Time No Known Allergies Allergy Mild Verified 01/23/21 13:57 Home Medications Medication Instructions Recorded Confirmed Type allopurinol 100 mg tablet 200 mg PO BID tablet 05/22/19 01/23/21 History metoprolol tartrate 50 mg tablet 50 mg PO Q12H tablet 05/22/19 01/23/21 History spironolactone 25 mg tablet 25 mg PO DAILY 05/22/19 01/23/21 History pravastatin 20 mg tablet 20 mg PO DAILY tablet 11/17/19 01/23/21 History acetaminophen [Tylenol 8 Hour] 650 mg PO Q8H PRN 02/03/20 01/23/21 History pantoprazole 40 mg PO QAM #30 tablet 02/18/20 01/23/21 Rx dabigatran etexilate [Pradaxa] 150 mg PO BID 03/14/20 01/23/21 History furosemide 40 mg PO DAILY 03/14/20 01/23/21 History ferrous sulfate 325 mg (65 mg 325 mg PO DAILY 12/21/20 01/23/21 History iron) tablet cyanocobalamin (vitamin B-12) 500 mcg PO DAILY 01/23/21 01/23/21 History Patient hx anesthesia problems: none Family hx anesthesia problems: none [facility] Past Medical History Medical History Acute on chronic diastolic CHF (congestive heart failure) Aortic aneurysm of unspecified site, without rupture CTA chest 10/30/2018 mild aneurysmal dilatation of the ascending thoracic aorta 4.4 cm Aortic valve insufficiency 12/09/2019 moderate to severe Chronic a-fib Chronic gout Congestive heart failure pseudo diastolic dysfunction grade 2 COPD (chronic obstructive pulmonary disease) Coronary artery disease involving ambler coronary artery of ambler heart without angina pectoris Diverticulosis of intestine, part unspecified, without perforation or abscess with bleeding GERD (gastroesophageal reflux disease) HTN (hypertension) Hyperlipidemia Hypertensive heart disease without heart failure IFG (impaired fasting glucose) Iron deficiency anemia due to chronic blood loss group home (current) 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 Jennie [facility] 04/16/2012 S/P hip replacement S/P pulmonary valve replacement Family History Family History Father Hypertension CHF (congestive heart failure) Mother Varicose veins of both legs with edema Breast cancer Hypertension Sibling Hypertension COPD (chronic obstructive pulmonary disease) Kidney stone Social History Social History Social History: the patient lives with his and she is a durable power commercial litigation attorney for healthcare. He desires to be full code. He is retired from [employer]. He has 2 children. He is a former smoker. Occasionally has a beer. Smoking packs per day: 2 Smoking cigarettes per day: 40.0 Years smoked: 25 Smoking pack-years: 50.00 Smoking status: Former smoker Tobacco type: cigarettes Second hand tobacco smoke exposure: Yes Smoking end date: 07/08/90 Alcohol intake: current Alcohol use details: hardly drinks beer per Substance use: never Substance use type: does not use Living arrangements: with family Gender identity (if verbalized by the patient): Male Spiritual care concerns: No Anes - Eval Final
[2021-01-31] VITALS (8 sets, daily range): BP systolic 114–151; BP diastolic 60–82; PULSE 70–96; RESP 16–27; TEMP 36.4–36.6; O2SAT 92–100
[2021-01-31] MEDS: LACTATED RINGERS 1,000 ML 30 ML IV CONT (11:08)
--- NOTE | 2021-01-31 11:19 | WPDHPUPDATE1 ---
History and Physical Update Update Date/Time: 01/31/21 11:19 History and Physical has been reviewed, including an updated exam of the patient. There are NO changes in the patient's condition. Risks, benefits, and alternatives have been discussed and questions answered. Patient agrees to proceed with procedure. proceed with incision and drainage of perineal/scrotal abscess
[2021-01-31] MEDS: ceFAZolin 2 GM/D5W 50 ML 2 GM/50 ML BAG IVPB (12:14)
--- NOTE | 2021-01-31 12:50 | P.OP_ITS ---
Procedure Note - Detailed Date of Procedure 01/31/21 Pre-op Diagnosis peroneal abscess Post-op Diagnosis same Procedure Performed Incision and drainage of perineal neptali scrotal abscess Surgeon Martin Suggs MD Anesthesia general Findings open wound right side the perineum scrotum tracking down to the mid perineum. Description of Procedure Patient was taken to the operative suite and correctly identified. Once anesthesia was obtained he was placed in the dorsal lithotomy position and prepped and draped usual sterile fashion. Patient is noted to have a open wound measuring approximately 4-5 mm in the perineum area but just adjacent to the right hemiscrotum. Probing of this area reveals that it tracks down to the mid perineal area. We went ahead and follow this area and incised the perineum in the midline. There was no discrete purulence noted at this time. We went ahead and irrigated copiously. We fulgurated the edges. We placed a half-inch [place] drain through this area and secured it. We then packed with wet to dry. He is taken recovery stable condition. He was given 1% lidocaine for local anesthetic also. He will be discharged home with pain meds and antibiotics. Will have him follow up tomorrow for dressing change in the office with our nurse practitioner Drains Yes Packing Yes Pathology yes Complications No immediate complications Condition stable Disposition PACU
[2021-01-31] MEDS: BACITRACIN OINTMENT 15 GM TUBE 1 APPLIC TOPICAL (13:01)
== END 2021-01-31 14:40 | disposition home or self-care (01) ==
PROVIDERS: PCP Family Medicine; Visit Provider Urology
PROC: (CPT 10060; principal; 2021-01-31 12:30)
DX: L02.215 Cutaneous abscess of perineum (principal); I48.20 Chronic atrial fibrillation, unspecified; I71.2 Thoracic aortic aneurysm, without rupture; I35.1 Nonrheumatic aortic (valve) insufficiency; J44.9 Chronic obstructive pulmonary disease, unspecified; M10.9 Gout, unspecified; I25.10 Atherosclerotic heart disease of native coronary artery without angina pectoris; K21.9 Gastro-esophageal reflux disease without esophagitis; I11.9 Hypertensive heart disease without heart failure; D50.9 Iron deficiency anemia, unspecified; M31.6 Other giant cell arteritis; Q21.1 Atrial septal defect; E78.5 Hyperlipidemia, unspecified; Z79.01 Long term (current) use of anticoagulants; Z95.1 Presence of aortocoronary bypass graft; Z95.4 Presence of other heart-valve replacement; Z87.891 Personal history of nicotine dependence; E66.9 Obesity, unspecified; Z68.32 Body mass index [BMI] 32.0-32.9, adult
CPT/HCPCS: 10060; 88305; A9270; J0690; J1100; J2405; J2704; J3010; J7120

== ENCOUNTER 2021-05-29 07:04 | Outpatient (CLI) | payer MEDICARE, SELFPAY ==
[2021-05-29 07:53] LABS: Hematocrit 48.4 % (42.0-52.0); Hemoglobin 16.7 g/dL (14.0-18.0); Mean Corpuscular HGB Conc 34.5 g/dl (32-36); Mean Corpuscular Volume 95.7 fl (80-100); Mean Platelet Volume 10.7 fl (7.4-10.4); Platelet Count Result 143 k/mm3 (150-375); Red Blood Count 5.06 M/mm3 (4.6-6.20); Red Cell Distribution Width 14.3 % (11.5-14.5); White Blood Count 9.2 K/mm3 (4.5-10.0)
[2021-05-29 07:55] LABS: Alanine Aminotransferase 11 U/L (4-50); Albumin Level 4.2 g/dL (3.5-5.1); Alkaline Phosphatase 90 U/L (38-126); Anion Gap 6 mmol/L (8-16); Aspartate Amino Transferase 21 U/L (17-59); Bilirubin,Total 4.1 mg/dL (0.2-1.3); Blood Urea Nitrogen 22 mg/dL (9-20); Calcium 9.4 mg/dL (8.4-10.2); Carbon Dioxide 29 mmol/L (22-30); Chloride 101 mmol/L (98-107); Cholesterol 108 mg/dL (0-200); Estimated Glomerular Filt Rate > 60; Glucose 131 mg/dL (65-110); HDL Direct 33 mg/dL; Potassium 4.9 mmol/L (3.4-5.0); Sodium 136 mmol/L (137-145); Triglycerides 95 mg/dL (<150)
[2021-05-29 07:57] LABS: Hemoglobin A1C 5.8 % (<5.7)
[2021-05-29 08:06] LABS: LDL Cholesterol Direct 60 mg/dL
[2021-05-29 08:20] LABS: Add Urine Microscopic? YES; Appearance Urine Clear (Clear); Bilirubin Urine Negative (Negative); Blood Urine 1+ (Negative); Color Urine Yellow (Yellow); Glucose Urine UA Negative (Negative); Ketones Urine Negative (Negative); Leukocyte Esterase Ur Negative LEU/UL (NEGATIVE); Mucus Urine Rare /lpf; Nitrate Urine Negative (Negative); Protein Urine 1+ mg/dL (Negative); RBC Urine 0-2 /hpf (0-2); Specific Grav Ur 1.024 (1.001-1.035); Squamous Epithelial Cell Urine Occasional /hpf (Few); Urobilinogen Urine Negative mg/dL (<2.0); WBC Urine 0-3 /hpf (0-3)
== END 2021-05-29 07:05 | disposition home or self-care (01) ==
LOC: ANHLAB 07:11
PROVIDERS: PCP Family Medicine; Visit Provider Family Medicine
DX: D64.9 Anemia, unspecified (principal); E78.5 Hyperlipidemia, unspecified; I10 Essential (primary) hypertension; R73.01 Impaired fasting glucose; I48.20 Chronic atrial fibrillation, unspecified; Z95.2 Presence of prosthetic heart valve; I25.119 Atherosclerotic heart disease of native coronary artery with unspecified angina pectoris
CPT/HCPCS: 36415; 80053; 80061; 81001; 83036; 84443; 85027

== ENCOUNTER 2021-06-27 08:15 | Outpatient (CLI) | payer MEDICARE, SELFPAY ==
[2021-06-27 08:48] LABS: Alanine Aminotransferase 10 U/L (4-50); Albumin Level 4.2 g/dL (3.5-5.1); Alkaline Phosphatase 96 U/L (38-126); Aspartate Amino Transferase 23 U/L (17-59); Bilirubin,Total 2.4 mg/dL (0.2-1.3)
== END 2021-06-27 08:16 | disposition home or self-care (01) ==
PROVIDERS: PCP Family Medicine; Visit Provider Family Medicine
DX: R17 Unspecified jaundice (principal)
CPT/HCPCS: 36415; 80076

== ENCOUNTER 2021-07-17 07:52 | Outpatient (CLI) | payer MEDICARE, SELFPAY ==
[2021-07-17 08:24] LABS: Alanine Aminotransferase 10 U/L (4-50); Albumin Level 4.3 g/dL (3.5-5.1); Alkaline Phosphatase 101 U/L (38-126); Aspartate Amino Transferase 21 U/L (17-59); Bilirubin,Total 2.8 mg/dL (0.2-1.3)
== END 2021-07-17 07:53 | disposition home or self-care (01) ==
PROVIDERS: PCP Family Medicine; Visit Provider Family Medicine
DX: R17 Unspecified jaundice (principal)
CPT/HCPCS: 36415; 80076

== ENCOUNTER 2021-07-31 07:48 | Outpatient (CLI) | payer MEDICARE, SELFPAY ==
--- NOTE | ~2021-07-31 | US_ITS ---
EXAMINATION: US abdomen limited EXAM DATE: 07/31/2021 09:25 INDICATION: R17 - Unspecified jaundice TECHNIQUE: Multiple grayscale and Doppler images of the abdomen right upper quadrant were obtained (b y a technologist who performed the scan) and subsequently reviewed. There is no prior study for avelino tipton. FINDINGS: The pancreatic head and body are normal in appearance. The pancreatic tail is not visualized. The l iver has normal echogenicity and contour. There are no focal liver lesions identified. There is no evidence of intrahepatic biliary duct dilation. Portal venous flow was seen in the hepatopedal, nor mal direction and has normal Doppler waveform. No right-sided hydronephrosis. Common bile duct measures 5 mm, which is normal. The gallbladder wall is normal in thickness, with ex pected amount of distention. No sonographic evidence of pericholecystic fluid. There is cholelithia sis. Technologist performing exam reports patient did not demonstrate sonographic Mcallister's sign. P lekimberley note that this sign is less reliable in patients who have received pain medication. IMPRESSION: 1. Cholelithiasis. 2. No biliary dilation. Reviewed, dictated and finalized at location G. V BELT INSPECTOR
== END 2021-07-31 07:49 | disposition home or self-care (01) ==
LOC: ANHIMG 07:50
PROVIDERS: PCP Family Medicine; Visit Provider Family Medicine
DX: R17 Unspecified jaundice (principal); K80.20 Calculus of gallbladder without cholecystitis without obstruction
CPT/HCPCS: 76705

== ENCOUNTER 2021-08-01 08:50 | Outpatient (CLI) | payer MEDICARE, SELFPAY ==
[2021-08-01 09:36] LABS: Alanine Aminotransferase 12 U/L (4-50); Albumin Level 4.3 g/dL (3.5-5.1); Alkaline Phosphatase 106 U/L (38-126); Aspartate Amino Transferase 25 U/L (17-59)
== END 2021-08-01 08:51 | disposition home or self-care (01) ==
LOC: ANHLAB 08:52
PROVIDERS: PCP Family Medicine; Visit Provider Family Medicine
DX: R17 Unspecified jaundice (principal)
CPT/HCPCS: 36415; 80076

== ENCOUNTER 2021-08-09 08:04 | Outpatient (CLI) | payer MEDICARE, SELFPAY ==
[2021-08-09 09:27] LABS: Alanine Aminotransferase 10 U/L (4-50); Albumin Level 4.2 g/dL (3.5-5.1); Alkaline Phosphatase 96 U/L (38-126); Aspartate Amino Transferase 21 U/L (17-59); Bilirubin,Total 2.3 mg/dL (0.2-1.3)
== END 2021-08-09 08:05 | disposition home or self-care (01) ==
PROVIDERS: PCP Family Medicine; Visit Provider Family Medicine
DX: R17 Unspecified jaundice (principal)
CPT/HCPCS: 36415; 80076

== ENCOUNTER 2021-12-17 12:16 | Emergency (ER) | payer MEDICARE, SELFPAY ==
[2021-12-17 12:22] VITALS: BP 101/52; PULSE 97; RESP 28; TEMP 35.6; O2SAT 99
--- NOTE | 2021-12-17 13:22 | ED.ABDPAIN ---
HPI - Abdominal Pain General Chief Complaint: Abdominal Pain Stated Complaint: STOMACH PROBLEMS/TIRED Source: patient and family Mode of arrival: wheelchair Limitations: no limitations History of Present Illness HPI narrative: Patient presents for evaluation of abdominal pain for the last week, worse in the last 4 days. Pain is intermittent, without identified aggravating or alleviating factors. Pain is rated 6 out of 10 in severity, without descriptive quality. He has associated nausea without vomiting. Over the last month he has noted that his stool is black. He states that his stool is normally dark, but this is a change in appearance from his normal bowel pattern. Normal bowel pattern is 1 bowel movement every 2 days. Over the last few days he has been having 2 bowel movements per day. Denies any diarrhea or visible blood. No fever or chills. He has a history of A. fib and is anticoagulated with Pradaxa. He is also on iron supplementation. He states his last colonoscopy was approximately a year ago and there was blood present . GI doctor is Dr. Bueno at [facility]. It sounds like he had a cauterization at time of last colonoscopy from description of that procedure. He has become increasingly weak. He was riding his tractor two days ago but require a wheelchair to get into the facility today. No additional complaints or concerns. Related Data Home Medications Medication Instructions Recorded Confirmed allopurinol 100 mg tablet 200 mg PO BID 05/22/19 12/17/21 metoprolol tartrate 50 mg tablet 50 mg PO Q12H 05/22/19 12/17/21 spironolactone 25 mg tablet 25 mg PO DAILY 05/22/19 12/17/21 pravastatin 20 mg tablet 20 mg PO DAILY 11/17/19 12/17/21 acetaminophen 650 mg 650 mg PO Q8H PRN Pain 02/03/20 12/17/21 tablet,extended release (Tylenol 8 Hour) dabigatran etexilate 150 mg 150 mg PO BID 03/14/20 12/17/21 capsule (Pradaxa) furosemide 40 mg tablet 40 mg PO DAILY 03/14/20 12/17/21 ferrous sulfate 325 mg (65 mg 325 mg PO DAILY 12/21/20 12/17/21 iron) tablet cyanocobalamin (vitamin B-12) 500 500 mcg PO DAILY 01/23/21 12/17/21 mcg tablet Allergies Allergy/AdvReac Type Severity Reaction Status Date / Time No Known Allergies Allergy Mild Verified 04/04/21 09:49 Review of Systems Review of Systems: CONSTITUTIONAL: Reports generalized weakness and fatigue. Denies fever, chills, or sweats. EYES: Denies visual changes, redness, or discharge. ENT: Denies rhinorrhea, congestion, sore throat, or otalgia. CARDIOVASCULAR: Denies chest pain, palpitations, or edema. RESPIRATORY: Denies cough or dyspnea. GASTROINTESTINAL:Reports abdominal pain, nausea, increased frequency in bowel movements and black appearance to his stool. Denies vomiting GENITOURINARY: Denies dysuria or hematuria. SKIN: Denies rash or itching. MUSCULOSKELETAL: Denies back pain, joint pain, or myalgia. NEUROLOGIC: Denies headache, numbness, dizziness, or weakness. PSYCHIATRIC: Denies anxiety or depression. PENDING SALE TO [facility] Past Medical History Medical History Acute on chronic diastolic CHF (congestive heart failure) Aortic aneurysm of unspecified site, without rupture CTA chest 10/30/2018 mild aneurysmal dilatation of the ascending thoracic aorta 4.4 cm Aortic valve insufficiency 12/09/2019 moderate to severe Chronic a-fib Chronic gout Congestive heart failure pseudo diastolic dysfunction grade 2 COPD (chronic obstructive pulmonary disease) Coronary artery disease involving [place] coronary artery of [place] heart without angina pectoris Diverticulosis of intestine, part unspecified, without perforation or abscess with bleeding GERD (gastroesophageal reflux disease) HTN (hypertension) Hyperlipidemia Hypertensive heart disease without heart failure IFG (impaired fasting glucose) Iron deficiency anemia due to chronic blood loss intermediate (current) use of anticoagulants Other giant cell arteritis PFO (patent f
== END 2021-12-17 13:24 | disposition short-term general hospital (02) ==
PROVIDERS: Emergency Provider Nurse Practitioner; PCP Family Medicine
DX: R10.13 Epigastric pain (principal); Z87.891 Personal history of nicotine dependence; I48.91 Unspecified atrial fibrillation; M10.9 Gout, unspecified; I25.10 Atherosclerotic heart disease of native coronary artery without angina pectoris; K21.9 Gastro-esophageal reflux disease without esophagitis; E78.5 Hyperlipidemia, unspecified; I11.0 Hypertensive heart disease with heart failure; I50.9 Heart failure, unspecified; J44.9 Chronic obstructive pulmonary disease, unspecified; R73.01 Impaired fasting glucose; Z79.01 Long term (current) use of anticoagulants; D50.8 Other iron deficiency anemias
CPT/HCPCS: 99212; G0463

== ENCOUNTER 2022-02-05 13:30 | Emergency (ER) | payer MEDICARE, SELFPAY ==
[2022-02-05 13:37] VITALS: BP 117/69; PULSE 108; RESP 20; TEMP 36.5; O2SAT 97
--- NOTE | 2022-02-05 13:42 | ED.MALEGU ---
HPI - Male Genitourinary General Chief complaint: Urogenital-Male Stated complaint: Urinary Retention Time Seen by Provider: 02/05/22 13:36 History of Present Illness HPI Narrative: Pt presnts with urinary frequency, dysuria and difficulty fully voiding for a a few days. Pt has had some chills and he thinks has had a fever. Pt has some intermittent flank pain. Pt has been on bactrim for a uti but is getting worse and urology sent him to ER for IV antibiotics. Related Data Home Medications Medication Instructions Recorded Confirmed allopurinol 100 mg tablet 200 mg PO BID 05/22/19 12/17/21 metoprolol tartrate 50 mg tablet 50 mg PO Q12H 05/22/19 12/17/21 spironolactone 25 mg tablet 25 mg PO DAILY 05/22/19 12/17/21 pravastatin 20 mg tablet 20 mg PO DAILY 11/17/19 12/17/21 acetaminophen 650 mg 650 mg PO Q8H PRN Pain 02/03/20 12/17/21 tablet,extended release (Tylenol 8 Hour) dabigatran etexilate 150 mg 150 mg PO BID 03/14/20 12/17/21 capsule (Pradaxa) furosemide 40 mg tablet 40 mg PO DAILY 03/14/20 12/17/21 ferrous sulfate 325 mg (65 mg 325 mg PO DAILY 12/21/20 12/17/21 iron) tablet cyanocobalamin (vitamin B-12) 500 500 mcg PO DAILY 01/23/21 12/17/21 mcg tablet Allergies Allergy/AdvReac Type Severity Reaction Status Date / Time No Known Allergies Allergy Mild Verified 04/04/21 09:49 Review of Systems Review of Systems: All systems reviewed & are unremarkable except as noted in HPI and below Constitutional: Constitutional: Reports as per HPI Genitourinary: Genitourinary: Reports as per HPI, Reports oliguria, Reports urinary frequency, Reports urinary hesitancy and Reports urinary urgency [facility] Past Medical History Medical History Acute on chronic diastolic CHF (congestive heart failure) Aortic aneurysm of unspecified site, without rupture CTA chest 10/30/2018 mild aneurysmal dilatation of the ascending thoracic aorta 4.4 cm Aortic valve insufficiency 12/09/2019 moderate to severe Chronic a-fib Chronic gout Congestive heart failure pseudo diastolic dysfunction grade 2 COPD (chronic obstructive pulmonary disease) Coronary artery disease involving [place] coronary artery of [place] heart without angina pectoris Diverticulosis of intestine, part unspecified, without perforation or abscess with bleeding GERD (gastroesophageal reflux disease) HTN (hypertension) Hyperlipidemia Hypertensive heart disease without heart failure IFG (impaired fasting glucose) Iron deficiency anemia due to chronic blood loss 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 He desires to be full code. He is retired from [employer]. He has 2 children. He is a former smoker. Occasionally has a beer. Smoking packs per day: 2 Smoking cigarettes per day: 40.0 Years smoked: 25 Smoking pack-years: 50.00 Smoking status: Never smoker Tobacco type: cigarettes Second hand tobacco smoke ex
[2022-02-05 14:07] LABS: Basophils Percent Auto 0.2 % (0.2-1.2); Hemoglobin 12.2 g/dL (14.0-18.0); Immature Granulocyte Absolute 0.02 K/mm3 (0.00-0.031); Immature Granulocyte Percent A 0.3 % (0-0.5); Lymphocytes Absolute Auto 2.21 K/mm3 (0.9-3.2); Lymphocytes Percent Auto 36.5 % (18.3-44.2); Mean Corpuscular HGB Conc 29.8 g/dl (32-36); Mean Corpuscular Hemoglobin 26.2 pg (26-34); Mean Platelet Volume 10.7 fl (7.4-10.4); Monocytes Absolute Auto 0.5 K/mm3 (0.1-0.6); Monocytes Percent Auto 8.6 % (2.6-8.5); Neutrophils Absolute Auto 3.3 K/mm3 (1.3-6.7); Neutrophils Percent Auto 54.4 % (45.5-73.1); Platelet Count Result 113 k/mm3 (150-375); Red Blood Count 4.66 M/mm3 (4.6-6.20); Red Cell Distribution Width 18.3 % (11.5-14.5); White Blood Count 6.1 K/mm3 (4.5-10.0)
[2022-02-05 14:21] LABS: Alanine Aminotransferase 17 U/L (6-50); Albumin Level 3.8 g/dL (3.5-5.1); Alkaline Phosphatase 91 U/L (38-126); Anion Gap 12 mmol/L (8-16); Aspartate Amino Transferase 34 U/L (17-59); Bilirubin,Total 0.8 mg/dL (0.2-1.3); Blood Urea Nitrogen 39 mg/dL (9-20); Calcium 8.8 mg/dL (8.4-10.2); Carbon Dioxide 24 mmol/L (22-30); Chloride 94 mmol/L (98-107); Estimated Glomerular Filt Rate 42; Glucose 137 mg/dL (65-110); Potassium 4.6 mmol/L (3.4-5.0); Sodium 130 mmol/L (137-145)
[2022-02-05 14:41] LABS: Platelet Estimate Decreased (Adequate)
[2022-02-05 14:42] LABS: Anisocytosis 2+ (NORMAL); Hypochromasia 1+ (NORMAL)
[2022-02-05] MEDS: SODIUM CHLORIDE 0.9% IV 1,000 ML 999 ML IV CONT (14:58)
[2022-02-05 15:20] LABS: Appearance Urine Clear (Clear); Bilirubin Urine 1+ (Negative); Blood Urine Negative (Negative); Color Urine Yellow (Yellow); Glucose Urine UA Negative (Negative); Ketones Urine Negative (Negative); Leukocyte Esterase Ur Negative LEU/UL (Negative); Nitrate Urine Negative (Negative); Protein Urine 3+ mg/dL (Negative); Specific Grav Ur >= 1.030 (1.001-1.035)
[2022-02-05 15:38] LABS: Bacteria Urine Trace /hpf; Mucus Urine Rare /lpf; RBC Urine 0-2 /hpf (0-2); Squamous Epithelial Cell Urine Rare /hpf (Few); WBC Urine 0-3 /hpf
[2022-02-05 15:44] LABS: Add Urine Microscopic? YES
== END 2022-02-05 16:00 | disposition home or self-care (01) ==
PROVIDERS: Emergency Provider Emergency Medicine; PCP Family Medicine
DX: N39.0 Urinary tract infection, site not specified (principal); I50.33 Acute on chronic diastolic (congestive) heart failure; I11.0 Hypertensive heart disease with heart failure; I35.1 Nonrheumatic aortic (valve) insufficiency; I48.20 Chronic atrial fibrillation, unspecified; J44.9 Chronic obstructive pulmonary disease, unspecified; I25.10 Atherosclerotic heart disease of native coronary artery without angina pectoris; E78.5 Hyperlipidemia, unspecified; K21.9 Gastro-esophageal reflux disease without esophagitis; M1A.9XX0 Chronic gout, unspecified, without tophus (tophi); D50.0 Iron deficiency anemia secondary to blood loss (chronic); Z86.010 Personal history of colon polyps; Z98.42 Cataract extraction status, left eye; Z98.41 Cataract extraction status, right eye; Z96.641 Presence of right artificial hip joint; Z95.1 Presence of aortocoronary bypass graft; Z95.2 Presence of prosthetic heart valve; Z87.891 Personal history of nicotine dependence
CPT/HCPCS: 36415; 80053; 81001; 85025; 87040; 96365; 99284; J0696; J7030

== ENCOUNTER 2022-06-11 00:45 | Inpatient (IN) | payer MEDICARE, SELFPAY ==
[2022-06-11] VITALS (54 sets, daily range): BP systolic 102–171; BP diastolic 43–92; PULSE 60–107; RESP 16–38; TEMP 36.4–36.9; O2SAT 89–99
--- NOTE | ~2022-06-11 | XR_ITS ---
EXAMINATION: XR chest 1V portable DATE: 06/11/2022 02:15 INDICATION: Shortness of breath. TECHNIQUE: A single frontal view of the chest was obtained. COMPARISON: Chest single view 02/16/2020, chest CT 02/17/2020 FINDINGS: There are airspace opacities at left lung base. There is a small left pleural effusion. No pneumothorax. Cardiomegaly is noted. Median sternotomy wires and mediastinal surgical clips are seen, likely from prior coronary artery bypass grafting. IMPRESSION: 1. Airspace opacities at left lung base, consistent with atelectasis versus pneumonia. 2. Small left pleural effusion. 9 3. Cardiomegaly. Reviewed, dictated and finalized at location A. IT[employer] IMPROVEMENT SPECIALIST IMPRESSION: 1. Airspace opacities at left lung base, consistent with atelectasis versus pne umonia. 2. Small left pleural effusion. 9 3. Cardiomegaly.
--- NOTE | ~2022-06-11 | XR_ITS ---
EXAMINATION: XR chest 1V portable DATE: 06/15/2022 06:13 INDICATION: Shortness of breath. TECHNIQUE: A single frontal view of the chest was obtained. COMPARISON: Chest single view 06/11/2022, chest CT 02/17/2020 FINDINGS: There are airspace opacities in the lower lung zones. There is a small left pleural effusio n. No pneumothorax. Cardiomegaly is noted. Median sternotomy wires and mediastinal surgical clips are seen, likely from prior coronary artery bypass grafting. IMPRESSION: 1. Airspace opacities in the lower lung zones with worsening on the right, consistent with atelectasi s versus pneumonia. 2. Stable small left pleural effusion. 3. Cardiomegaly. Reviewed, dictated and finalized at location A. [facility] JOINTER RETURNER IMPRESSION: 1. Airspace opacities in the lower lung zones with worsening on the right, cons istent with atelectasis versus pneumonia. 2. Stable small left pleural effusion. 3. Cardiomegaly.
--- NOTE | 2022-06-11 00:51 | ECG_ITS ---
Measurements Intervals [place] Rate: 96 P: LA: 0 QRS: 87 QRSD: 104 T: -2 QT: 351 QTc: 445 Interpretive Statements ATRIAL FIBRILLATION BORDERLINE ST-T WAVE ABNORMALITY- INFERIOR LEADS BASELINE ARTIFACT- I, II, III, AVR, AVL, AVF ABNORMAL ECG NO PREVIOUS ECG AVAILABLE FOR COMPARISON Electronically Signed On 06-11-2022 10:43:26 GRAVITY MANAGER by Tucker Shultz D.O.
[2022-06-11 01:31] LABS: Basophils Absolute Auto 0.1 K/mm3 (0.0-0.1); Basophils Percent Auto 0.4 % (0.2-1.2); Eosinophils Percent Auto 0.3 % (0-4.4); Immature Granulocyte Absolute 0.06 K/mm3 (0.00-0.031); Immature Granulocyte Percent A 0.4 % (0-0.5); Lymphocytes Absolute Auto 1.67 K/mm3 (0.9-3.2); Lymphocytes Percent Auto 12.4 % (18.3-44.2); Mean Corpuscular Hemoglobin 31.9 pg (26-34); Mean Corpuscular Volume 93.8 fl (80-100); Mean Platelet Volume 10.7 fl (7.4-10.4); Monocytes Absolute Auto 0.5 K/mm3 (0.1-0.6); Monocytes Percent Auto 3.6 % (2.6-8.5); Neutrophils Absolute Auto 11.2 K/mm3 (1.3-6.7); Neutrophils Percent Auto 82.9 % (45.5-73.1); Platelet Count Result 148 k/mm3 (150-375); Red Blood Count 5.33 M/mm3 (4.6-6.20); Red Cell Distribution Width 15.8 % (11.5-14.5); White Blood Count 13.5 K/mm3 (4.5-10.0)
--- NOTE | 2022-06-11 01:46 | ED.SOB ---
HPI - SOB/Dyspnea General Chief Complaint: Shortness of Breath/Dyspnea Stated Complaint: flu s/sx, AMS Time Seen by Provider: 06/11/22 01:07 History of Present Illness HPI Narrative: Patient is a 76-year-old male with a history of A. fib, pulmonary hypertension, hyperlipidemia, hypertension, GERD presenting with chills and malaise. Patient has had a productive cough for the last week. States that he overall felt okay until today when he developed severe chills and rigors. He also had an episode of vomiting. EMS was called and found him to be saturating 87% on room air. Patient denies headache, numbness or weakness, chest pain, abdominal pain, diarrhea, leg swelling, dysuria. Related Data Home Medications Medication Instructions Recorded Confirmed allopurinol 100 mg tablet 200 mg PO BID 05/22/19 12/17/21 metoprolol tartrate 50 mg tablet 50 mg PO Q12H 05/22/19 12/17/21 spironolactone 25 mg tablet 25 mg PO DAILY 05/22/19 12/17/21 pravastatin 20 mg tablet 20 mg PO DAILY 11/17/19 12/17/21 acetaminophen 650 mg 650 mg PO Q8H PRN Pain 02/03/20 12/17/21 tablet,extended release (Tylenol 8 Hour) dabigatran etexilate 150 mg 150 mg PO BID 03/14/20 12/17/21 capsule (Pradaxa) furosemide 40 mg tablet 40 mg PO DAILY 03/14/20 12/17/21 ferrous sulfate 325 mg (65 mg 325 mg PO DAILY 12/21/20 12/17/21 iron) tablet cyanocobalamin (vitamin B-12) 500 500 mcg PO DAILY 01/23/21 12/17/21 mcg tablet acetaminophen 325 mg tablet 325 mg PO Q4-6H 06/11/22 06/11/22 allopurinol 100 mg tablet 100 mg PO DAILY 06/11/22 06/11/22 cyanocobalamin (vitamin B-12) 1,000 mcg PO DAILY 06/11/22 06/11/22 1,000 mcg tablet dabigatran etexilate 150 mg 150 mg PO DAILY 06/11/22 06/11/22 capsule (Pradaxa) ferrous sulfate 325 mg PO DAILY 06/11/22 06/11/22 furosemide 40 mg PO DAILY 06/11/22 06/11/22 metoprolol tartrate 50 mg tablet 50 mg PO Q12H 06/11/22 06/11/22 pravastatin 20 mg PO HS 06/11/22 06/11/22 spironolactone 25 mg tablet 25 mg PO DAILY 06/11/22 06/11/22 Allergies Allergy/AdvReac Type Severity Reaction Status Date / Time No Known Allergies Allergy Verified 06/12/22 13:54 Review of Systems Review of Systems: All systems reviewed & are unremarkable except as noted in HPI and below [facility] Past Medical History Medical History Acute on chronic diastolic CHF (congestive heart failure) Aortic aneurysm of unspecified site, without rupture CTA chest 10/30/2018 mild aneurysmal dilatation of the ascending thoracic aorta 4.4 cm Aortic valve insufficiency 12/09/2019 moderate to severe Chronic a-fib Chronic gout Congestive heart failure pseudo diastolic dysfunction grade 2 COPD (chronic obstructive pulmonary disease) Coronary artery disease involving [place] coronary artery of [place] heart without angina pectoris Diverticulosis of intestine, part unspecified, without perforation or abscess with bleeding GERD (gastroesophageal reflux disease) HTN (hypertension) Hyperlipidemia Hypertensive heart disease without heart failure IFG (impaired fasting glucose) Iron deficiency anemia due to chronic blood loss 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 Jennie Maya [facility] 04/16/2012 S/P hip replacement S/P pulmonary valve replacement Family History Family History Father Asthma Chronic obstructive pulmonary disease Hypertension Mother Hypertension Father Hypertension CHF (congestive heart failure) Mother Varicose veins of both legs wit
[2022-06-11 02:08] LABS: Influenza A QL RT-PCR Negative (Negative); Influenza B QL RT-PCR Negative (Negative); RSV RNA, RT-PCR Negative (Negative); SARS-CoV-2 RNA PCR Negative
[2022-06-11 02:20] LABS: NT Pro B Type Natriuretic Pept 3640 pg/mL (5-100)
[2022-06-11] MEDS: SODIUM CHLORIDE 0.9% IV 1,000 ML 999 ML IV CONT (02:26)
[2022-06-11 02:29] LABS: Alanine Aminotransferase 17 U/L (6-50); Albumin Level 4.5 g/dL (3.5-5.1); Alkaline Phosphatase 107 U/L (38-126); Anion Gap 14 mmol/L (8-16); Aspartate Amino Transferase 27 U/L (17-59); Bilirubin,Total 2.9 mg/dL (0.2-1.3); Blood Urea Nitrogen 33 mg/dL (9-20); Calcium 9.1 mg/dL (8.4-10.2); Carbon Dioxide 22 mmol/L (22-30); Chloride 99 mmol/L (98-107); Estimated Glomerular Filt Rate 59; Glucose 254 mg/dL (65-110); Potassium 4.2 mmol/L (3.4-5.0); Sodium 135 mmol/L (137-145)
--- NOTE | 2022-06-11 03:21 | PM.IMHP ---
H&P: HPI History of Present Illness Date/Time: 06/11/22 03:21 Chief Complaint: chills Narrative: This is a 76-year-old male with past medical history significant for coronary artery disease status post coronary artery bypass graft, congestive heart failure. Patient was brought by ambulance to the emergency due to sudden onset of violent rigors, cough with sputum production of brownish color, chest congestion, lethargy, according to patient had been in his usual state of health up until this time had also 1 episode of vomiting along with the coughing spell. preliminary workup was significant for a lactic acid of 3 a chest x-ray showed diffuse bilateral infiltrates of the lungs, patient tested negative for influenza A influenza B and COVID 19. patient is been admitted for further evaluation management and treatment. Review of Systems Review of Systems: altered mental status, lethargy, cough productive of sputum, violent rigors Constitutional: Constitutional: Reports chills Eyes: Eyes: Denies change in vision ENT: Denies dysphagia, Denies vertigo, Denies dizziness and Denies odynophagia Cardiovascular: Cardiovascular: Denies chest pain, Denies irregular heart rhythm, Denies palpitations and Denies dyspnea Respiratory: Respiratory: Reports change in phlegm color, Reports chest congestion, Reports cough and Reports excessive phlegm production Gastrointestinal: Gastrointestinal: Denies dyspepsia, Denies heartburn, Denies diarrhea, Denies nausea and Denies vomiting Genitourinary: Genitourinary: Denies dysuria Musculoskeletal: Musculoskeletal: Reports back pain and Denies myalgias Integumentary/Breasts: Skin/Breast: Denies rash Neurologic: Denies vertigo, Denies dizziness, Denies focal weakness and Denies Sensory deficit (Neuro) Psychiatric: Psychiatric: Reports no additional psychiatric complaints and Reports as per HPI Endocrine: Endocrine: Denies cold intolerance, Denies flushing, Denies heat intolerance, Denies polyphagia, Denies polydipsia and Denies palpitations Hematologic/Lymphatic: Hematologic/Lymphatic: Reports no additional hematologic/lymphatic complaints and Reports as per HPI Allergic/Immunologic: Allergic/Immunologic: Reports no additional allergic/immunologic complaints and Reports as per HPI Meds Home Medications and Allergies Allergies Allergy/AdvReac Type Severity Reaction Status Date / Time No Known Allergies Allergy Verified 06/11/22 02:25 Vital Signs Vital Signs - 24 hr 06/11/22 01:28 06/11/22 01:36 06/11/22 01:38 Temperature 98.4 F Pulse Rate 100 91 91 Respiratory Rate 33 H 28 H Blood Pressure 151/74 H 151/60 H Pulse Oximetry 89 L 92 Oxygen Delivery Room Air Oxygen Flow Rate 06/11/22 01:38 Temperature Pulse Rate Respiratory Rate Blood Pressure Pulse Oximetry 92 Oxygen Delivery Nasal Cannula Oxygen Flow Rate 3 Exam Narrative: patient is laying in a stretcher Const: General: cooperative, comfortable, no acute distress, well developed, alert, awake, ill appearing acutely and average body habitus Nutritional Appearance: average body habitus Orientation/consciousness: patient oriented x3 HENMT: Head: normal to inspection, normocephalic and atraumatic Ears: hearing grossly normal bilaterally Face/Nose/Sinus: normal facial exam Face and sinus: normal facial exam Eyes: General: appearance normal, both eyes and all related structures Pupils: Equal, round and reactive pupils present EOM: EOMs intact bilaterally Neck: Neck: full ROM, no lymphadenopathy and no JVD Thyroid: thyroid normal Lymphatic: no lymphadenopathy noted Resp: Effort & Inspection: normal respiratory effort and able to speak in complete sentences Auscultation: crackles and diminished lung sounds Cardio: Jugular venous distension: no JVD Rate: regular rate Rhythm: regular rhythm Heart sounds: S1 normal heart sound present and S2 normal heart sound present GI: GI Palp: Yes Soft to pa
[2022-06-11 04:28] LABS: Reflex Lactic Acid Yes or No Add Lactic
--- NOTE | 2022-06-11 05:54 | ADMGEN ---
This patient, Rubio Fenton, was admitted to 2 Medical Room 260-. Patient/family oriented to hospital policies and general routines including ID bracelet, bed and alarms, visiting hours, pain management, procedures, bathroom and other care routines, personal items, smoking policy, room service/diet, and visiting hours. Information on how to activate the Rapid Response Team has been discussed. Patient/Family are encouraged to report perceived risks to care and to ask questions if they do not understand what they are told or what they should do.
[2022-06-11] MEDS: ACETAMINOPHEN 325 MG TABLET 650 MG PO ×2 (06:36→13:46)
[2022-06-11 09:35] LABS: Troponin I 0.022 ng/mL (0.000-0.034)
[2022-06-11] MEDS: FERROUS SULFATE 324 MG TABLET PO (09:50)
[2022-06-11] MEDS: FUROSEMIDE 40 MG TABLET PO (09:50)
[2022-06-11] MEDS: METOPROLOL TARTRATE 50 MG TAB PO ×2 (09:50→20:18)
[2022-06-11] MEDS: DABIGATRAN ETEXILATE 150 MG CAPSULE PO (09:51)
[2022-06-11] MEDS: SPIRONOLACTONE 25 MG TABLET PO (09:51)
[2022-06-11] MEDS: CYANOCOBALAMIN 1,000 MCG TABLET 1000 MCG PO (09:51)
[2022-06-11] MEDS: allopurinoL 100 MG TABLET PO (09:51)
[2022-06-11] MEDS: ONDANSETRON INJ 4 MG/2 ML VIAL IV PUSH (12:44)
[2022-06-11 14:36] LABS: Appearance Urine Clear (Clear); Bilirubin Urine Negative (Negative); Blood Urine 1+ (Negative); Color Urine Yellow (Yellow); Glucose Urine UA Negative (Negative); Ketones Urine Trace mg/dL (Negative); Leukocyte Esterase Ur Negative LEU/UL (Negative); Nitrate Urine Negative (Negative); Protein Urine 2+ mg/dL (Negative); Urobilinogen Urine 0.2 mg/dL (<2.0); pH Urine 5.5 (5.0-9.0)
[2022-06-11 14:41] LABS: Mucus Urine Rare /lpf; WBC Urine 0-3 /hpf
[2022-06-11 14:44] LABS: Add Urine Microscopic? YES
--- NOTE | 2022-06-11 15:49 | PM.IMPN ---
Progress Note: A&P Assessment and Plan (1) Sepsis: Code(s): A41.9 - Sepsis, unspecified organism Status: Acute Assessment and Plan: supported by altered mental status low pulse ox elevated total bilirubin likely source to be pneumonia early goal-directed therapy in progress started on cefepime and vancomycin cultures in progress chills HPI-Narrative: ?This is a 76-year-old male with past medical history significant for coronary artery disease status post coronary artery bypass graft,? congestive heart failure.? Patient was brought by ambulance to the emergency due to sudden onset of violent rigors, cough with sputum production of brownish color, chest congestion,? lethargy, according to patient had been in his usual state of health up until this time had also 1 episode of vomiting along with the coughing spell. preliminary workup was significant for a lactic acid of 3 a chest x-ray showed diffuse bilateral infiltrates of the lungs, patient tested negative for influenza A influenza B and COVID 19. patient is been admitted for further evaluation management and treatment. 06/11/2022 interval history: patient with shortness of breath fever and chills is found to have community-acquired pneumonia, patient is treated with Cefepime and vancomycin, patient clinical symptoms are improved is feeling much better compared to when he arrived, will follow-up on the blood culture and further recommendation to follow, patient is present and answered all her questions. (2) CAP (community acquired pneumonia): Code(s): J18.9 - Pneumonia, unspecified organism Status: Acute Assessment and Plan: on cefepime and vanc deescalate antibiotics as needed supportive care (3) CAD (coronary artery disease), autologous vein bypass graft: Code(s): I25.810 - Atherosclerosis of coronary artery bypass graft(s) without angina pectoris Status: Acute Assessment and Plan: chest pain-free continue home meds (4) Acute respiratory failure with hypoxia: Code(s): J96.01 - Acute respiratory failure with hypoxia Status: Acute Assessment and Plan: continue supplemental oxygen by nasal cannula Subjective Date/time seen: 06/11/22 15:49 chills HPI-Narrative: ?This is a 76-year-old male with past medical history significant for coronary artery disease status post coronary artery bypass graft,? congestive heart failure.? Patient was brought by ambulance to the emergency due to sudden onset of violent rigors, cough with sputum production of brownish color, chest congestion,? lethargy, according to patient had been in his usual state of health up until this time had also 1 episode of vomiting along with the coughing spell. preliminary workup was significant for a lactic acid of 3 a chest x-ray showed diffuse bilateral infiltrates of the lungs, patient tested negative for influenza A influenza B and COVID 19. patient is been admitted for further evaluation management and treatment. 06/11/2022 interval history: patient with shortness of breath fever and chills is found to have community-acquired pneumonia, patient is treated with Cefepime and vancomycin, patient clinical symptoms are improved is feeling much better compared to when he arrived, will follow-up on the blood culture and further recommendation to follow, patient is present and answered all her questions. Review of Systems Review of Systems: altered mental status, lethargy, cough productive of sputum, violent rigors Constitutional: Constitutional: Reports chills Eyes: Eyes: Denies change in vision ENT: Denies dysphagia, Denies vertigo, Denies dizziness and Denies odynophagia Cardiovascular: Cardiovascular: Denies chest pain, Denies irregular heart rhythm, Denies palpitations and Denies dyspnea Respiratory: Respiratory: Reports change in phlegm color, Reports chest congestion, Reports cough, Reports excessive phle
--- NOTE | 2022-06-11 16:12 | PCPTNOTE ---
Attempted to see patient for physical therapy evaluation, pt stated he was too tired and would be unable to get out of bed d/t this. Will continue to follow.
[2022-06-11] MEDS: PRAVASTATIN SODIUM 20 MG TABLET PO (20:18)
[2022-06-12] VITALS (12 sets, daily range): BP systolic 118–136; BP diastolic 61–88; PULSE 65–98; RESP 18–24; TEMP 36.2–36.8; O2SAT 90–95
[2022-06-12] MEDS: CYANOCOBALAMIN 1,000 MCG TABLET 1000 MCG PO (08:26)
[2022-06-12] MEDS: DABIGATRAN ETEXILATE 150 MG CAPSULE PO (08:26)
[2022-06-12] MEDS: SPIRONOLACTONE 25 MG TABLET PO (08:26)
[2022-06-12] MEDS: FERROUS SULFATE 324 MG TABLET PO (08:26)
[2022-06-12] MEDS: allopurinoL 100 MG TABLET PO (08:26)
[2022-06-12] MEDS: FUROSEMIDE 40 MG TABLET PO (08:26)
[2022-06-12] MEDS: ACETAMINOPHEN 325 MG TABLET 650 MG PO (09:20)
[2022-06-12] MEDS: METOPROLOL TARTRATE 50 MG TAB PO ×2 (09:20→21:14)
[2022-06-12 12:15] LABS: Hematocrit 43.1 % (42.0-52.0); Hemoglobin 14.4 g/dL (14.0-18.0); Mean Corpuscular HGB Conc 33.4 g/dl (32-36); Mean Corpuscular Hemoglobin 32.1 pg (26-34); Mean Platelet Volume 10.8 fl (7.4-10.4); Platelet Count Result 133 k/mm3 (150-375); Red Blood Count 4.49 M/mm3 (4.6-6.20); Red Cell Distribution Width 16.1 % (11.5-14.5); White Blood Count 14.3 K/mm3 (4.5-10.0)
[2022-06-12 12:25] LABS: Lactic Acid Reflex 1.6 mmol/L (0.7-2.0)
[2022-06-12 12:26] LABS: Alanine Aminotransferase 15 U/L (6-50); Albumin Level 3.7 g/dL (3.5-5.1); Alkaline Phosphatase 70 U/L (38-126); Anion Gap 8 mmol/L (8-16); Aspartate Amino Transferase 20 U/L (17-59); Bilirubin,Total 3.5 mg/dL (0.2-1.3); Blood Urea Nitrogen 39 mg/dL (9-20); Calcium 8.7 mg/dL (8.4-10.2); Carbon Dioxide 28 mmol/L (22-30); Chloride 96 mmol/L (98-107); Estimated CRCL calculation 46 ml/min; Estimated Glomerular Filt Rate 53; Glucose 200 mg/dL (65-110); Magnesium 1.7 mg/dL (1.6-2.3); Potassium 4.4 mmol/L (3.4-5.0); Sodium 132 mmol/L (137-145)
--- NOTE | 2022-06-12 15:26 | PM.IMPN ---
Progress Note: A&P Assessment and Plan (1) Sepsis: Code(s): A41.9 - Sepsis, unspecified organism Status: Acute Assessment and Plan: supported by altered mental status low pulse ox elevated total bilirubin likely source to be pneumonia early goal-directed therapy in progress started on cefepime and vancomycin cultures in progress chills HPI-Narrative: ?This is a 76-year-old male with past medical history significant for coronary artery disease status post coronary artery bypass graft,? congestive heart failure.? Patient was brought by ambulance to the emergency due to sudden onset of violent rigors, cough with sputum production of brownish color, chest congestion,? lethargy, according to patient had been in his usual state of health up until this time had also 1 episode of vomiting along with the coughing spell. preliminary workup was significant for a lactic acid of 3 a chest x-ray showed diffuse bilateral infiltrates of the lungs, patient tested negative for influenza A influenza B and COVID 19. patient is been admitted for further evaluation management and treatment. 06/12/2022 interval history: patient with shortness of breath fever and chills is found to have community-acquired pneumonia, patient is treated with Cefepime and vancomycin, patient clinical symptoms are improving is feeling much better compared to when he arrived, blood culture no growth so far, will follow-up on the blood culture, be repeat chest x-ray tomorrow and further recommendation to follow, patient is present and answered all her questions. (2) CAP (community acquired pneumonia): Code(s): J18.9 - Pneumonia, unspecified organism Status: Acute Assessment and Plan: on cefepime and vanc deescalate antibiotics as needed supportive care (3) CAD (coronary artery disease), autologous vein bypass graft: Code(s): I25.810 - Atherosclerosis of coronary artery bypass graft(s) without angina pectoris Status: Acute Assessment and Plan: chest pain-free continue home meds (4) Acute respiratory failure with hypoxia: Code(s): J96.01 - Acute respiratory failure with hypoxia Status: Acute Assessment and Plan: continue supplemental oxygen by nasal cannula Subjective Date/time seen: 06/12/22 15:26 chills HPI-Narrative: ?This is a 76-year-old male with past medical history significant for coronary artery disease status post coronary artery bypass graft,? congestive heart failure.? Patient was brought by ambulance to the emergency due to sudden onset of violent rigors, cough with sputum production of brownish color, chest congestion,? lethargy, according to patient had been in his usual state of health up until this time had also 1 episode of vomiting along with the coughing spell. preliminary workup was significant for a lactic acid of 3 a chest x-ray showed diffuse bilateral infiltrates of the lungs, patient tested negative for influenza A influenza B and COVID 19. patient is been admitted for further evaluation management and treatment. 06/12/2022 interval history: patient with shortness of breath fever and chills is found to have community-acquired pneumonia, patient is treated with Cefepime and vancomycin, patient clinical symptoms are improving is feeling much better compared to when he arrived, blood culture no growth so far, will follow-up on the blood culture, be repeat chest x-ray tomorrow and further recommendation to follow, patient is present and answered all her questions. Review of Systems Constitutional: Constitutional: Reports chills Exam Narrative: moderately obese Patient is comfortable, NAD HEENT: eyes are clear and none icteric LUNGS: bilateral fair entry with rhonchi HEART: RR S1S2 ABD: BS+, Soft and nontender Lower extremities: no edema SKIN: nonjaundiced Neuro: grossly intact. Objective Data Vital Signs Vital Signs: Vital
[2022-06-12] MEDS: PRAVASTATIN SODIUM 20 MG TABLET PO (21:13)
[2022-06-13] VITALS (13 sets, daily range): BP systolic 126–138; BP diastolic 60–72; PULSE 64–106; RESP 18–20; TEMP 35.9–36.3; O2SAT 92–96
[2022-06-13 06:08] LABS: Hematocrit 43.5 % (42.0-52.0); Hemoglobin 14.4 g/dL (14.0-18.0); Mean Corpuscular HGB Conc 33.1 g/dl (32-36); Mean Corpuscular Hemoglobin 31.9 pg (26-34); Mean Corpuscular Volume 96.2 fl (80-100); Mean Platelet Volume 10.9 fl (7.4-10.4); Platelet Count Result 139 k/mm3 (150-375); Red Blood Count 4.52 M/mm3 (4.6-6.20); White Blood Count 12.5 K/mm3 (4.5-10.0)
[2022-06-13 06:19] LABS: Alanine Aminotransferase 12 U/L (6-50); Albumin Level 3.7 g/dL (3.5-5.1); Alkaline Phosphatase 72 U/L (38-126); Anion Gap 4 mmol/L (8-16); Aspartate Amino Transferase 17 U/L (17-59); Bilirubin,Total 3.4 mg/dL (0.2-1.3); Blood Urea Nitrogen 33 mg/dL (9-20); Calcium 8.9 mg/dL (8.4-10.2); Carbon Dioxide 27 mmol/L (22-30); Chloride 96 mmol/L (98-107); Estimated CRCL calculation 54 ml/min; Estimated Glomerular Filt Rate > 60; Glucose 155 mg/dL (65-110); Magnesium 1.8 mg/dL (1.6-2.3); Potassium 4.3 mmol/L (3.4-5.0); Sodium 127 mmol/L (137-145)
[2022-06-13] MEDS: FERROUS SULFATE 324 MG TABLET PO (08:30)
[2022-06-13] MEDS: CYANOCOBALAMIN 1,000 MCG TABLET 1000 MCG PO (08:30)
[2022-06-13] MEDS: FUROSEMIDE 40 MG TABLET PO (08:31)
[2022-06-13] MEDS: DABIGATRAN ETEXILATE 150 MG CAPSULE PO (08:31)
[2022-06-13] MEDS: allopurinoL 100 MG TABLET PO (08:31)
[2022-06-13] MEDS: SPIRONOLACTONE 25 MG TABLET PO (08:31)
[2022-06-13] MEDS: METOPROLOL TARTRATE 50 MG TAB PO ×2 (08:31→22:11)
[2022-06-13 11:03] LABS: Vancomycin Trough 14.9 ug/mL (10.0-20.0)
--- NOTE | 2022-06-13 13:23 | PCOTNOTE ---
Attempted to see patient this pm, however patient reported just getting back to bed from eating lunch.
--- NOTE | 2022-06-13 14:04 | PC.NURSE ---
On 06/13/22, the student, [Crystal Talbert], provided care and completed [facility] documentation on this patient. I have reviewed the student's documentation and agree with the findings.
--- NOTE | 2022-06-13 15:06 | PM.IMPN ---
Progress Note: A&P Assessment and Plan (1) Sepsis: Code(s): A41.9 - Sepsis, unspecified organism Status: Acute Assessment and Plan: supported by altered mental status low pulse ox elevated total bilirubin likely source to be pneumonia early goal-directed therapy in progress started on cefepime and vancomycin cultures in progress Blood culture no growth to date Lactic acid is resolved Chest x-ray diffuse infiltrate lungs Negative for influenza A/B and COVID Remains on vancomycin cefepime (2) CAP (community acquired pneumonia): Code(s): J18.9 - Pneumonia, unspecified organism Status: Acute Assessment and Plan: on cefepime and vanc deescalate antibiotics as needed supportive care (3) CAD (coronary artery disease), autologous vein bypass graft: Code(s): I25.810 - Atherosclerosis of coronary artery bypass graft(s) without angina pectoris Status: Acute Assessment and Plan: chest pain-free continue home meds (4) Acute respiratory failure with hypoxia: Code(s): J96.01 - Acute respiratory failure with hypoxia Status: Acute Assessment and Plan: continue supplemental oxygen by nasal cannula Plan Hyperbilirubinemia: chronic issues. cholelithiasis on us ruq. intermittently high. lfts are normal Hyponatremia: mild. monitor Subjective Date/time seen: 06/13/22 15:06 Interval history: HPI-Narrative: ?This is a 76-year-old male with past medical history significant for coronary artery disease status post coronary artery bypass graft,? congestive heart failure.? Patient was brought by ambulance to the emergency due to sudden onset of violent rigors, cough with sputum production of brownish color, chest congestion,? lethargy, according to patient had been in his usual state of health up until this time had also 1 episode of vomiting along with the coughing spell. preliminary workup was significant for a lactic acid of 3 a chest x-ray showed diffuse bilateral infiltrates of the lungs, patient tested negative for influenza A influenza B and COVID 19. patient is been admitted for further evaluation management and treatment. 06/12/2022 interval history:? patient with shortness of breath fever and chills is found to have community-acquired pneumonia, patient is treated with Cefepime and vancomycin,? patient clinical symptoms are improving? is feeling much better compared to when he arrived,? blood culture no growth so far, will follow-up on the blood culture,? be repeat chest x-ray tomorrow and further recommendation to follow, patient is present and answered all her questions. 06/13/2022: No overnight events. Feeling better. Remains afebrile. Cough is still present. Remains on oxygen. Review of Systems Review of Systems: All systems reviewed & are unremarkable except as noted in HPI and below Exam Narrative: moderately obese Patient is comfortable, NAD HEENT: eyes are clear and none icteric LUNGS: bilateral fair entry with no wheezes HEART: RR S1S2 ABD: BS+, Soft and nontender Lower extremities: no edema cyanosis or clubbing SKIN: nonjaundiced Neuro: grossly intact. Objective Data Vital Signs Vital Signs: Vital Signs - 24 hr 06/12/22 16:00 06/12/22 21:14 06/12/22 21:37 Temperature 97.1 F L Pulse Rate 67 81 81 Respiratory Rate 18 Blood Pressure 136/88 Pulse Oximetry 95 Oxygen Delivery Oxygen Flow Rate 06/12/22 20:00 06/12/22 20:00 06/13/22 00:00 Temperature Pulse Rate 74 82 Respiratory Rate Blood Pressure Pulse Oximetry 93 Oxygen Delivery Nasal Cannula Oxygen Flow Rate 3 06/13/22 05:24 06/13/22 04:00 06/13/22 08:31 Temperature 97.2 F L Pulse Rate 86 80 106 H Respiratory Rate 18 Blood Pressure 136/65 Pulse Oximetry 96 Oxygen Delivery Oxygen Flow Rate 06/13/22 08:29 06/13/22 09:00 06/13/22 08:01 Temperature Pulse Rate 88 Respiratory Rate Bloo
[2022-06-13] MEDS: PRAVASTATIN SODIUM 20 MG TABLET PO (22:11)
[2022-06-14] VITALS (12 sets, daily range): BP systolic 126–129; BP diastolic 59–79; PULSE 75–109; RESP 18–20; TEMP 35.7–36.4; O2SAT 93–96
[2022-06-14 05:53] LABS: Hematocrit 42.9 % (42.0-52.0); Hemoglobin 14.5 g/dL (14.0-18.0); Mean Corpuscular HGB Conc 33.8 g/dl (32-36); Mean Corpuscular Hemoglobin 31.5 pg (26-34); Mean Corpuscular Volume 93.3 fl (80-100); Mean Platelet Volume 11.6 fl (7.4-10.4); Platelet Count Result 153 k/mm3 (150-375); Red Cell Distribution Width 15.7 % (11.5-14.5); White Blood Count 10.9 K/mm3 (4.5-10.0)
[2022-06-14] MEDS: ACETAMINOPHEN 325 MG TABLET 650 MG PO ×2 (06:03→21:54)
[2022-06-14 06:04] LABS: Alanine Aminotransferase 14 U/L (6-50); Albumin Level 3.7 g/dL (3.5-5.1); Alkaline Phosphatase 75 U/L (38-126); Anion Gap 7 mmol/L (8-16); Aspartate Amino Transferase 23 U/L (17-59); Bilirubin,Total 4.2 mg/dL (0.2-1.3); Blood Urea Nitrogen 34 mg/dL (9-20); Calcium 8.6 mg/dL (8.4-10.2); Carbon Dioxide 29 mmol/L (22-30); Chloride 94 mmol/L (98-107); Estimated CRCL calculation 59 ml/min; Estimated Glomerular Filt Rate > 60; Glucose 156 mg/dL (65-110); Potassium 4.5 mmol/L (3.4-5.0); Sodium 130 mmol/L (137-145)
--- NOTE | 2022-06-14 07:54 | PM.IMPN ---
Progress Note: A&P Assessment and Plan (1) Sepsis: Code(s): A41.9 - Sepsis, unspecified organism Status: Acute Assessment and Plan: supported by altered mental status low pulse ox elevated total bilirubin likely source to be pneumonia early goal-directed therapy in progress started on cefepime and vancomycin cultures in progress Blood culture no growth to date Lactic acid is resolved Chest x-ray diffuse infiltrate lungs Negative for influenza A/B and COVID Remains on vancomycin cefepime. Cultures negative so far will stop vancomycin today. Sputum culture not obtained (2) CAP (community acquired pneumonia): Code(s): J18.9 - Pneumonia, unspecified organism Status: Acute Assessment and Plan: on cefepime and vanc deescalate antibiotics as needed supportive care Stop vancomycin today. Will also get MRSA screen (3) CAD (coronary artery disease), autologous vein bypass graft: Code(s): I25.810 - Atherosclerosis of coronary artery bypass graft(s) without angina pectoris Status: Acute Assessment and Plan: chest pain-free continue home meds (4) Acute respiratory failure with hypoxia: Code(s): J96.01 - Acute respiratory failure with hypoxia Status: Acute Assessment and Plan: continue supplemental oxygen by nasal cannula Plan Hyperbilirubinemia: chronic issues. cholelithiasis on us ruq. intermittently high. lfts are normal Hyponatremia: mild. monitor and remained stable Chronic diastolic congestive heart failure: BNP 3640. On furosemide and spironolactone not in exacerbation. Continue same DVT prophylaxis on dabigatran Disposition: PT OT, lives with spouse at home. Care coordination consultation. Uses Rollator for ambulation 2 PT no DC recommendations OT recommended home health. Subjective Date/time seen: 06/14/22 07:54 Interval history: HPI-Narrative: ?This is a 76-year-old male with past medical history significant for coronary artery disease status post coronary artery bypass graft,? congestive heart failure.? Patient was brought by ambulance to the emergency due to sudden onset of violent rigors, cough with sputum production of brownish color, chest congestion,? lethargy, according to patient had been in his usual state of health up until this time had also 1 episode of vomiting along with the coughing spell. preliminary workup was significant for a lactic acid of 3 a chest x-ray showed diffuse bilateral infiltrates of the lungs, patient tested negative for influenza A influenza B and COVID 19. patient is been admitted for further evaluation management and treatment. 06/12/2022 interval history:? patient with shortness of breath fever and chills is found to have community-acquired pneumonia, patient is treated with Cefepime and vancomycin,? patient clinical symptoms are improving? is feeling much better compared to when he arrived,? blood culture no growth so far, will follow-up on the blood culture,? be repeat chest x-ray tomorrow and further recommendation to follow, patient is present and answered all her questions. 06/13/2022: No overnight events. Feeling better. Remains afebrile. Cough is still present. Remains on oxygen. 06/14/2022: No overnight events. Remains afebrile vitals stable. On 2 L oxygen WBC 10 from 12. Sodium level stable/improved total do remains elevated 4.2. Normal LFT. Blood cultures negative growth to date. Chest showed airspace versus. With small left-sided pleural effusion along with cardiomegaly. Remains on vancomycin and cefepime. Review of Systems Review of Systems: All systems reviewed & are unremarkable except as noted in HPI and below Exam Narrative: moderately obese Patient is comfortable, NAD HEENT: eyes are clear and none icteric LUNGS: bilateral fair entry with no wheezes HEART: RR S1S2 ABD: BS+, Soft and nontender Lower extremities: no edema cyanosis or clubbing SKIN: nonj
[2022-06-14] MEDS: allopurinoL 100 MG TABLET PO (10:19)
[2022-06-14] MEDS: DABIGATRAN ETEXILATE 150 MG CAPSULE PO (10:19)
[2022-06-14] MEDS: FERROUS SULFATE 324 MG TABLET PO (10:19)
[2022-06-14] MEDS: CYANOCOBALAMIN 1,000 MCG TABLET 1000 MCG PO (10:19)
[2022-06-14] MEDS: METOPROLOL TARTRATE 50 MG TAB PO ×2 (10:20→21:56)
[2022-06-14] MEDS: FUROSEMIDE 40 MG TABLET PO (10:20)
[2022-06-14] MEDS: SPIRONOLACTONE 25 MG TABLET PO (10:21)
[2022-06-14] MEDS: PRAVASTATIN SODIUM 20 MG TABLET PO (21:56)
[2022-06-15] VITALS (11 sets, daily range): BP systolic 108–130; BP diastolic 52–66; PULSE 63–99; RESP 16–20; TEMP 36.2–36.8; O2SAT 93–100
[2022-06-15 06:10] LABS: Alanine Aminotransferase 21 U/L (6-50); Albumin Level 3.7 g/dL (3.5-5.1); Alkaline Phosphatase 90 U/L (38-126); Anion Gap 6 mmol/L (8-16); Aspartate Amino Transferase 30 U/L (17-59); Bilirubin,Total 3.4 mg/dL (0.2-1.3); Blood Urea Nitrogen 33 mg/dL (9-20); Carbon Dioxide 31 mmol/L (22-30); Chloride 95 mmol/L (98-107); Estimated CRCL calculation 54 ml/min; Estimated Glomerular Filt Rate > 60; Glucose 150 mg/dL (65-110); Magnesium 2.1 mg/dL (1.6-2.3); Potassium 4.1 mmol/L (3.4-5.0); Sodium 132 mmol/L (137-145)
[2022-06-15 06:20] LABS: Hematocrit 42.7 % (42.0-52.0); Hemoglobin 14.5 g/dL (14.0-18.0); Mean Corpuscular Hemoglobin 31.5 pg (26-34); Mean Corpuscular Volume 92.8 fl (80-100); Platelet Count Result 167 k/mm3 (150-375); Red Cell Distribution Width 15.5 % (11.5-14.5); White Blood Count 8.7 K/mm3 (4.5-10.0)
[2022-06-15] MEDS: ACETAMINOPHEN 325 MG TABLET 650 MG PO (08:44)
[2022-06-15] MEDS: FERROUS SULFATE 324 MG TABLET PO (08:45)
[2022-06-15] MEDS: DABIGATRAN ETEXILATE 150 MG CAPSULE PO (08:46)
[2022-06-15] MEDS: allopurinoL 100 MG TABLET PO (08:46)
[2022-06-15] MEDS: CYANOCOBALAMIN 1,000 MCG TABLET 1000 MCG PO (08:46)
[2022-06-15] MEDS: CEFDINIR 300 MG CAPSULE PO (08:46)
[2022-06-15] MEDS: FUROSEMIDE 40 MG TABLET PO (08:47)
[2022-06-15] MEDS: SPIRONOLACTONE 25 MG TABLET PO (08:48)
[2022-06-15] MEDS: METOPROLOL TARTRATE 50 MG TAB PO (08:50)
--- NOTE | 2022-06-15 13:19 | PC.NURSE ---
On 06/15/22, the student, [Katherin Villalobos], provided care and completed [facility] documentation on this patient. I have reviewed the student's documentation and agree with the findings.
--- NOTE | 2022-06-15 14:00 | HOMEO2EVAL ---
Evaluation was performed at [facility] Home Oxygen Evaluation RC: Home Oxygen (O2) Evaluation Start: 06/14/22 13:32 Freq: ONCE Status: Active Protocol: RPE Activity Type Activity Date Activity User E-sign Co-sign Detail Recorded Client Recorded Date Recorded By Document 06/15/22 12:00 ANISA [email or web address] 06/15/22 14:00 ANISA Document 06/15/22 12:05 ANISA [email or web address] 06/15/22 14:00 ANISA Document 06/15/22 12:15 ANISA [email or web address] 06/15/22 14:00 ANISA 06/15/22 06/15/22 06/15/22 12:00 12:05 12:15 Home O2 Evaluation [Oxygen] -Test Phase Resting Exercise Resting -Oxygen Delivery Room Air Room Air Room Air [Pulse Oximetry] -Pulse Oximetry (90-100 %) 96 93 95 [Pulse Rate] -Pulse Rate (60-100 beats/min) 72 99 77 [Comments] -Home Oxygen Evaluation Comments No home O2 needed. [Charges] -Treatment Charges O2 Evaluation - Inpatient
--- NOTE | 2022-06-15 14:01 | PCRCNOTE ---
HOME O2 EVAL DONE, PT DOES NOT REQUIRE HOME O2. PT WAS ON ROOM AIR DUE TO TUBING PINCHED UNDER WHEEL OF BED. ALSO, USING A EAR PROBE TO EVALUATE O2 IS MOST ACCURATE, FINGER PROBE WILL ENRICHMENT ASSISTANT AT REST, ALTHOUGH MUCH LOWER RESTING SATS.
--- NOTE | 2022-06-15 14:31 | PM.DS ---
DS: Admitting Diagnosis Discharge Date 06/15/2022 Admitting Diagnosis Shortness of breath DS: Discharge Diagnosis Discharge Diagnosis (1) Sepsis: Code(s): A41.9 - Sepsis, unspecified organism Status: Acute (2) CAP (community acquired pneumonia): Code(s): J18.9 - Pneumonia, unspecified organism Status: Acute (3) CAD (coronary artery disease), autologous vein bypass graft: Code(s): I25.810 - Atherosclerosis of coronary artery bypass graft(s) without angina pectoris Status: Acute (4) Acute respiratory failure with hypoxia: Code(s): J96.01 - Acute respiratory failure with hypoxia Status: Acute DS: Summary Hospital Course Reason for hospitalization: ?This is a 76-year-old male with past medical history significant for coronary artery disease status post coronary artery bypass graft,? congestive heart failure.? Patient was brought by ambulance to the emergency due to sudden onset of violent rigors, cough with sputum production of brownish color, chest congestion,? lethargy, according to patient had been in his usual state of health up until this time had also 1 episode of vomiting along with the coughing spell. preliminary workup was significant for a lactic acid of 3 a chest x-ray showed diffuse bilateral infiltrates of the lungs, patient tested negative for influenza A influenza B and COVID 19. patient is been admitted for further evaluation management and treatment. Hospital Course: # Sepsis: ?supported by altered mental status ?low pulse ox on arrival ?elevated total bilirubin which is more chronic problem ?likely source to be pneumonia ?early goal-directed therapy in progress ?started on cefepime and vancomycin Blood culture no growth to date Lactic acid is resolved Chest x-ray diffuse infiltrate lung disease Negative for influenza A/B and COVID Antibiotic tapered with stopping vancomycin. Cefepime was switched to Omnicef. Omnicef will be continued at discharge # community-acquired pneumonia: Started on cefepime and vanc ?deescalate antibiotics as needed ?supportive care Stop vancomycin during the hospital stay. Seven to Omnicef at discharge #CAD (coronary artery disease), autologous vein bypass graft: ?chest pain-free ?continue home meds # acute respiratory failure with hypoxia: ?continue supplemental oxygen by nasal cannula. Home oxygen evaluation done at the time of discharge and he did not require oxygen for home. # Hyperbilirubinemia: chronic issues. cholelithiasis on us ruq. intermittently high. lfts are normal # Hyponatremia: mild. monitor and remained stable # Chronic diastolic congestive heart failure:? BNP 3640.? On furosemide and spironolactone not in exacerbation.? Continue same # DVT prophylaxis on dabigatran # Disposition:? PT OT, lives with spouse at home.? Care coordination consultation.? Uses Rollator for ambulation 2 PT no DC recommendations OT recommended home health which is arranged at the time of discharge Time Spent with Patient Time attestation: Total time spent providing and/or coordinating discharge services: 45 minutes Exam Narrative: moderately obese Patient is comfortable, NAD HEENT: eyes are clear and none icteric LUNGS: bilateral fair entry with no wheezes HEART: RR S1S2 ABD: BS+, Soft and nontender Lower extremities: no edema cyanosis or clubbing SKIN: nonjaundiced Neuro: grossly intact. DS: Data Data Completed and Pending Labs on day of discharge: Labs from last 24 hours 06/15/22 06/15/22 05:40 05:40 WBC 8.7 RBC 4.60 Hgb 14.5 Hct 42.7 MCV 92.8 MCH 31.5 MCHC 34.0 RDW 15.5 H Plt Count 167 MPV 11.0 H Sodium 132 L Potassium 4.1 Chloride 95 L Carbon Dioxide 31 H Anion Gap 6 L BUN 33 H Creatinine 1.10 Estim Creat Clear Calc 54 Estimated GFR > 60 Glucose 150 H Calcium 9.0 Magnesium 2.1 Total Bilirubin 3.4 H AST 30 ALT 21 Alkaline Phosphatase 90
== END 2022-06-15 15:25 | disposition home or self-care (01) | DRG 871 ==
LOC: ANHED 01:17 → ANH2MED 04:09
PROVIDERS: Family Medicine; Admitting Provider Internal Medicine; Emergency Provider Emergency Medicine; PCP Family Medicine; Visit Provider Internal Medicine
DX: A41.9 Sepsis, unspecified organism (principal); J18.9 Pneumonia, unspecified organism; J96.01 Acute respiratory failure with hypoxia; I50.32 Chronic diastolic (congestive) heart failure; I48.20 Chronic atrial fibrillation, unspecified; E87.1 Hypo-osmolality and hyponatremia; R65.20 Severe sepsis without septic shock; I11.0 Hypertensive heart disease with heart failure; I27.20 Pulmonary hypertension, unspecified; I71.21 Aneurysm of the ascending aorta, without rupture; I25.10 Atherosclerotic heart disease of native coronary artery without angina pectoris; I35.1 Nonrheumatic aortic (valve) insufficiency; D50.0 Iron deficiency anemia secondary to blood loss (chronic); J44.9 Chronic obstructive pulmonary disease, unspecified; E80.6 Other disorders of bilirubin metabolism; E78.5 Hyperlipidemia, unspecified; K57.30 Diverticulosis of large intestine without perforation or abscess without bleeding; K21.9 Gastro-esophageal reflux disease without esophagitis; M1A.9XX0 Chronic gout, unspecified, without tophus (tophi); Z20.822 Contact with and (suspected) exposure to COVID-19; Z96.649 Presence of unspecified artificial hip joint; Z79.02 Long term (current) use of antithrombotics/antiplatelets; Z86.010 Personal history of colon polyps; Z95.2 Presence of prosthetic heart valve; Z95.1 Presence of aortocoronary bypass graft
CPT/HCPCS: 36415; 71045; 80053; 80202; 81001; 82248; 83605; 83735; 83880; 84484; 85025; 85027; 87040; 87081; 87637; 93005; 94618; 96365; 97161; 97165; 97530; 97535; 99285; A9270; J0692; J2405; J3370; J7030

== ENCOUNTER 2023-08-12 10:22 | Emergency (ER) | payer MEDICARE, SELFPAY ==
--- NOTE | ~2023-08-12 | CT_ITS ---
EXAMINATION: CT brain wo con DATE: 08/12/2023 13:15 INDICATION: Fall. TECHNIQUE: Computed tomography (CT) of the head was performed without intravenous contrast. The mA wa s adjusted according to patient size. Iterative reconstruction technique was employed. The dose-lengt h product was 605.33 mGy-cm. COMPARISON: None FINDINGS: There are old infarcts in the bilateral basal ganglia. There are scattered areas of low att enuation in the cerebral white matter. There is no intracranial hemorrhage, acute infarction, or abno rmal intracranial mass lesion. The ventricles are normal in size. There are likely changes of ocular lens replacement surgeries. There is mild mucosal thickening in the paranasal sinuses. There is thick ening of the marin of left maxillary sinus, which is small. The mastoid air cells are normal. IMPRESSION: 1. Old infarcts in the bilateral basal ganglia. 2. Mild nonspecific cerebral white matter disease, which likely represents chronic small vessel ische chepe disease. Reviewed, dictated and finalized at location A. R MACHINE OPERATOR HELPER IMPRESSION: 1. Old infarcts in the bilateral basal ganglia. 2. Mild nonspecific cerebral white matter disease, which likely represents child care attendant school ambrosio small vessel ischemic disease.
[2023-08-12 11:19] VITALS: BP 115/41; PULSE 73; RESP 16; TEMP 35.9; O2SAT 95
--- NOTE | 2023-08-12 12:44 | ED.GENADULT ---
HPI - General Adult General Chief complaint: Skin/Abscess/Foreign Body <Joaquina Byers November, MELTER ASSISTANT - Last Filed: 08/12/23 12:53> Stated complaint: gi bleed <Joaquina Byers November, MELTER ASSISTANT - Last Filed: 08/12/23 12:53> Time Seen by Provider: 08/12/23 14:52 <Joaquina Byers November, MELTER ASSISTANT - Last Filed: 08/12/23 12:53> Focused HPI: 1244 - Rubio Fenton is a 77 y/o male who presents wtih his today due to bleeding from a wound on his left buttock. After speaking with pt had a mechanical ground level fall hitting his head and left knee yesterday at 1900 Denies LOC - EMS was called he was checked and they refused transport to the ER. Today pt was getting up to go to the bathroom and states that one of his chronic wounds to his bottom was oozing a lot of blood and it got all over the marin/ floor/ toilet and they bandaged it up and brought him here. - He is on a blood thinner - currently not sure which blood thinner was taken off of Pradaxa and started on a new one recently - He is on the blood thinner since open heart surgery. states the blood was not coming from his rectum but from a wound that is on his butt cheek and states these wounds come and go. GENERAL: Well-appearing, well-nourished, and in no acute distress. HEAD: Normocephalic, atraumatic. CHEST: Clear to auscultation. ?No respiratory distress. HEART: Regular rate and rhythm.? NEURO: ?Alert and oriented x3. Patient screened in triage and initial orders placed.? ?Additional care and disposition to be based upon?diagnostic testing and treatment <Marcin Hampton MD - Last Filed: 08/12/23 18:32> History of Present Illness HPI narrative: Focused HPI: 1244 - Rubio Fenton is a 77 y/o male who presents wtih his today due to bleeding from a wound on his left buttock. After speaking with pt had a mechanical ground level fall hitting his head and left knee yesterday at 1900 Denies LOC - EMS was called he was checked and they refused transport to the ER. Today pt was getting up to go to the bathroom and states that one of his chronic wounds to his bottom was oozing a lot of blood and it got all over the marin/ floor/ toilet and they bandaged it up and brought him here. - He is on a blood thinner - currently not sure which blood thinner was taken off of Pradaxa and started on a new one recently - He is on the blood thinner since open heart surgery. states the blood was not coming from his rectum but from a wound that is on his butt cheek and states these wounds come and go. GENERAL: Well-appearing, well-nourished, and in no acute distress. HEAD: Normocephalic, atraumatic. CHEST: Clear to auscultation. ?No respiratory distress. HEART: Regular rate and rhythm.? NEURO: ?Alert and oriented x3. Patient screened in triage and initial orders placed.? ?Additional care and disposition to be based upon?diagnostic testing and treatment. <Joaquina Kimball APRN - Last Filed: 08/12/23 12:53> 77-year-old male presented to the emergency department for evaluation for a sore on his bottom. Patient reports he has got longstanding wounds to his left buttocks and he has been getting wound care for the last few years. Patient states that he did have a lot of bleeding from the wound this morning. At time of initial evaluation the bleeding has resolved. <Marcin Hampton MD - Last Filed: 08/12/23 18:32> Related Data Home medications: Home Medications Medication Instructions Recorded Confirmed acetaminophen 650 mg 650 mg PO Q8H PRN Pain 02/03/20 12/17/21 tablet,extended release (Tylenol 8 Hour) dabigatran etexilate 150 mg 150 mg PO BID 03/14/20 12/17/21 capsule (Pradaxa) cyanocobalamin (vitamin B-12) 1,000 mcg PO DAILY 06/11/22 06/11/22 1,000 mcg tablet dabigatran etexilate 150 mg 150 mg PO DAILY 06/11/22 06/11/22 capsule (Pradaxa) ferrous sulfate 325 mg PO DAILY 06/11/22 06/11/22 furosemide 40 mg PO DAILY 06/11/22 06/11/22 metoprolol tartrate 50 mg tablet 50
[2023-08-12 13:38] LABS: Basophils Absolute Auto 0.1 K/mm3 (0.0-0.1); Basophils Percent Auto 0.6 % (0.2-1.2); Eosinophils Absolute Auto 0.4 K/mm3 (0-0.3); Eosinophils Percent Auto 4.1 % (0-4.4); Hematocrit 44.9 % (42.0-52.0); Hemoglobin 14.7 g/dL (14.0-18.0); Immature Granulocyte Absolute 0.05 K/mm3 (0.00-0.031); Immature Granulocyte Percent A 0.5 % (0-0.5); Lymphocytes Absolute Auto 2.27 K/mm3 (0.9-3.2); Lymphocytes Percent Auto 23.7 % (18.3-44.2); Mean Corpuscular HGB Conc 32.7 g/dl (32-36); Mean Corpuscular Hemoglobin 32.2 pg (26-34); Mean Corpuscular Volume 98.5 fl (80-100); Mean Platelet Volume 10.7 fl (7.4-10.4); Monocytes Absolute Auto 0.7 K/mm3 (0.1-0.6); Monocytes Percent Auto 7.2 % (2.6-8.5); Neutrophils Absolute Auto 6.1 K/mm3 (1.3-6.7); Neutrophils Percent Auto 63.9 % (45.5-73.1); Platelet Count Result 156 k/mm3 (150-375); Red Blood Count 4.56 M/mm3 (4.6-6.20); Red Cell Distribution Width 15.1 % (11.5-14.5); White Blood Count 9.6 K/mm3 (4.5-10.0)
[2023-08-12 13:48] LABS: INR 1.1; Prothrombin Time 14.3 Seconds (11.1-14.7)
[2023-08-12 13:59] LABS: Alanine Aminotransferase 10 U/L (6-50); Alkaline Phosphatase 105 U/L (38-126); Anion Gap 7 mmol/L (8-16); Aspartate Amino Transferase 21 U/L (17-59); Bilirubin,Total 3.4 mg/dL (0.2-1.3); Blood Urea Nitrogen 22 mg/dL (9-20); Calcium 9.4 mg/dL (8.4-10.2); Carbon Dioxide 29 mmol/L (22-30); Chloride 97 mmol/L (98-107); Estimated CRCL calculation 55 ml/min; Estimated Glomerular Filt Rate > 60; Glucose 141 mg/dL (65-110); Potassium 4.9 mmol/L (3.4-5.0); Sodium 133 mmol/L (137-145)
[2023-08-12 14:07] VITALS: BP 141/80; PULSE 95; RESP 18; O2SAT 92
[2023-08-12] MEDS: TETANUS,DIPHTHERIA,AC PERTUSSIS ADULT (0.5 ML) BOOSTRIX IM (15:51)
== END 2023-08-12 15:56 | disposition home or self-care (01) ==
PROVIDERS: Nurse Practitioner Family; Emergency Provider Emergency Medicine; PCP Family Medicine
DX: S31.829A Unspecified open wound of left buttock, initial encounter (principal); I11.0 Hypertensive heart disease with heart failure; I50.33 Acute on chronic diastolic (congestive) heart failure; E78.5 Hyperlipidemia, unspecified; J44.9 Chronic obstructive pulmonary disease, unspecified; I48.20 Chronic atrial fibrillation, unspecified; I25.10 Atherosclerotic heart disease of native coronary artery without angina pectoris; F17.210 Nicotine dependence, cigarettes, uncomplicated; Z23 Encounter for immunization; X58.XXXA Exposure to other specified factors, initial encounter
CPT/HCPCS: 36415; 70450; 80053; 85025; 85610; 86850; 86900; 86901; 90471; 90715; 99284

== ENCOUNTER 2024-02-25 09:06 | Outpatient (CLI) | payer MEDICARE, SELFPAY ==
[2024-02-25 09:22] LABS: Basophils Absolute Auto 0.1 K/mm3 (0.0-0.1); Basophils Percent Auto 0.8 % (0.2-1.2); Eosinophils Absolute Auto 0.3 K/mm3 (0-0.3); Eosinophils Percent Auto 3.3 % (0-4.4); Hematocrit 44.2 % (42.0-52.0); Immature Granulocyte Absolute 0.05 K/mm3 (0.00-0.031); Immature Granulocyte Percent A 0.6 % (0-0.5); Lymphocytes Absolute Auto 1.89 K/mm3 (0.9-3.2); Lymphocytes Percent Auto 20.9 % (18.3-44.2); Mean Corpuscular HGB Conc 33.9 g/dl (32-36); Mean Corpuscular Volume 97.1 fl (80-100); Mean Platelet Volume 10.3 fl (7.4-10.4); Monocytes Absolute Auto 0.8 K/mm3 (0.1-0.6); Monocytes Percent Auto 8.3 % (2.6-8.5); Neutrophils Percent Auto 66.1 % (45.5-73.1); Platelet Count Result 152 k/mm3 (150-375); Red Blood Count 4.55 M/mm3 (4.6-6.20); White Blood Count 9.1 K/mm3 (4.5-10.0)
[2024-02-25 10:26] LABS: Iron 89 ug/dL (49-181)
[2024-02-25 10:28] LABS: Anion Gap 8 mmol/L (4-12); Blood Urea Nitrogen 22 mg/dL (9-20); Calcium 9.2 mg/dL (8.4-10.2); Carbon Dioxide 29 mmol/L (22-30); Chloride 94 mmol/L (98-107); Estimated Glomerular Filt Rate 58; Glucose 149 mg/dL (65-110); Potassium 4.7 mmol/L (3.4-5.0); Sodium 131 mmol/L (137-145)
[2024-02-25 10:36] LABS: Percent Iron Saturation 30 % (20-50)
== END 2024-02-25 09:07 | disposition home or self-care (01) ==
LOC: ANHLAB 09:08
PROVIDERS: PCP Family Medicine; Visit Provider Internal Medicine Hematology & Oncology
DX: D64.9 Anemia, unspecified (principal)
CPT/HCPCS: 36415; 80048; 82607; 82728; 83540; 83550; 85025

== ENCOUNTER 2024-07-09 15:21 | Emergency (ER) | payer MEDICARE, SELFPAY ==
[2024-07-09 15:28] VITALS: BP 127/50; PULSE 104; RESP 20; TEMP 36.6; O2SAT 92
--- NOTE | 2024-07-09 15:55 | ED.MALEGU ---
HPI - Male Genitourinary General Chief complaint: Urogenital-Male Stated complaint: trouble urinating, back pain Time Seen by Provider: 07/09/24 15:55 Focused HPI: This is a 78 year old male that presents to the ER for bilateral flank pain. Reports dysuria, frequency, hesitancy. Reports chills. GENERAL: Elderly, well-nourished, and in no acute distress. HEAD: Normocephalic, atraumatic. CHEST: Clear to auscultation. ?No respiratory distress. HEART: Regular rate and rhythm.? NEURO: ?Alert and oriented x3. Patient screened in triage and initial orders placed.? ?Additional care and disposition to be based upon?diagnostic testing and treatment. Related Data Home Medications ?Medication ?Instructions ?Recorded ?Confirmed ?Last Taken ?Type acetaminophen 650 mg 650 mg PO Q8H PRN Pain 02/03/20 12/17/21 Unknown History tablet,extended release (Tylenol 8 Hour) dabigatran etexilate 150 mg 150 mg PO BID 03/14/20 12/17/21 01/28/21 History capsule (Pradaxa) cyanocobalamin (vitamin B-12) 1,000 mcg PO DAILY 06/11/22 06/11/22 Unknown History 1,000 mcg tablet dabigatran etexilate 150 mg 150 mg PO DAILY 06/11/22 06/11/22 Unknown History capsule (Pradaxa) ferrous sulfate 325 mg PO DAILY 06/11/22 06/11/22 Unknown History furosemide 40 mg PO DAILY 06/11/22 06/11/22 Unknown History metoprolol tartrate 50 mg tablet 50 mg PO Q12H 06/11/22 06/11/22 Unknown History pravastatin 20 mg PO HS 06/11/22 06/11/22 Unknown History spironolactone 25 mg tablet 25 mg PO DAILY 06/11/22 06/11/22 Unknown History Allergies Allergy/AdvReac Type Severity Reaction Status Date / Time No Known Allergies Allergy Verified 08/12/23 14:10 [facility] Past Medical History Medical History Acute on chronic diastolic CHF (congestive heart failure) Aortic aneurysm of unspecified site, without rupture CTA chest 10/30/2018 mild aneurysmal dilatation of the ascending thoracic aorta 4.4 cm Aortic valve insufficiency 12/09/2019 moderate to severe Chronic a-fib Chronic gout Congestive heart failure pseudo diastolic dysfunction grade 2 COPD (chronic obstructive pulmonary disease) Coronary artery disease involving tunica-biloxi coronary artery of tunica-biloxi heart without angina pectoris Diverticulosis of intestine, part unspecified, without perforation or abscess with bleeding GERD (gastroesophageal reflux disease) HTN (hypertension) Hyperlipidemia Hypertensive heart disease without heart failure IFG (impaired fasting glucose) Iron deficiency anemia due to chronic blood loss 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 He desires to be full code. He is retired from [employer]. He has 2 children. He is a former smoker. Occasionally has a beer. Smoking packs per day: 2 Smoking cigarettes per day: 40.0 Years smoked: 50 Smoking pack-years: 100.00 Smoking status: Never smoker Tobacco type: cigarettes Second hand tobacco smoke exposure: Yes Smoking end date: 07/15/81 Alcohol intake: current Alcohol use details: hardly drinks beer per Substance use: never Substance use type: does not use Lack of Transportation: No Lack of Food: Never True Current Housing: I Have Housing Concerned About Future Housing: No Difficulty Paying Gas/Electric Bills: No Difficulty Paying for Meds: No Currently Unemployed: No Education: Bachelor's Degree Difficulty w/ Childcare or Family Care: No Living arrangements: with family Occupation/Education: retired Gender identity (if verbalized by the patient): Male Spiritual care concerns: No Course Vital Signs Vital signs: Vital Signs Temperature 97.9 F 07/09/24 15:28 Pulse Rate 104 H 07/09/24 15:28 Respiratory Rate 20 07/09/24 15:28 Blood Pressure 127/50 L 07/09/24 15:28 Pulse Oximetry 92 07/09/24 15:28 Oxygen Delivery Room Air 07/09/24 15:28 Temperature 97.9 F 07/09/24 15:28 Pulse Rate 104 H 07/09/24 15:28 Respiratory Rate 20 07/09/24 15:28 Blood Pressure 127/50 L 07/09/24 15:28 Pulse Oximetry 92 07/09/24 15:28 Oxygen Delivery Room Air 07/09/24 15:28 MDM - Male Genitourinary MDM Narrative Medical decision making narrative: Patient left after medical screening exam and initial workup and before any further evaluation or management Lab Data 07/09/24 16:02 07/09/24 16:02 Labs: Lab Results 07/09/24 Range/Units 16:02 WBC 10.0 (4.5-10.0) K/mm3 RBC 4.41 L (4.6-6.20) M/mm3 Hgb 14.5 (14.0-18.0) g/dL Hct 42.6 (42.0-52.0) % MCV 96.6 (80-100) fl MCH 32.9 (26-34) pg MCHC 34.0 (32-36) g/dl RDW 15.7 H (11.5-14.5) % Plt Count 153 (150-375) k/mm3 MPV 10.4 (7.4-10.4) fl Immature Gran % (Auto) 1.1 H (0-0.5) % Neut % (Auto) 69.0 (45.5-73.1) % Lymph % (Auto) 18.9 (18.3-44.2) % [place] % (Auto) 10.1 H (2.6-8.5) % Eos % (Auto) 0.4 (0-4.4) % Baso % (Auto) 0.5 (0.2-1.2) % Lymph # (Auto) 1.90 (0.9-3.2) K/mm3 [place] # (Auto) 1.0 H (0.1-0.6) K/mm3 Eos # (Auto) 0.0 (0-0.3) K/mm3 Baso # (Auto) 0.1 (0.0-0.1) K/mm3 Abs Immat Gran (auto) 0.11 H (0.00-0.031) K/mm3 Absolute Neuts (auto) 6.9 H (1.3-6.7) K/mm3 Absolute Nucleated RBC 0.000 (0.0-0.012) K/mm3 Nucleated RBC % 0.0 (0.0-0.2) % Sodium 133 L (137-145) mmol/L Potassium 4.5 (3.4-5.0) mmol/L Chloride 96 L (98-107) mmol/L Carbon Dioxide 31 H (22-30) mmol/L Anion Gap 6 (4-12) mmol/L BUN 27 H (9-20) mg/dL Creatinine 1.30 (0.7-1.3) mg/dL Estim Creat Clear Calc 42 ml/min Estimated GFR 53 L (59 - ) Glucose 184 H (65-110) mg/dL Calcium 9.8 (8.4-10.2) mg/dL Total Bilirubin 3.0 H (0.2-1.3) mg/dL AST 25 (17-59) U/L ALT 13 (6-50) U/L Alkaline Phosphatase 128 H (38-126) U/L Total Protein 8.0 (6.3-8.2) g/dL Albumin 4.5 (3.5-5.1) g/dL Critical Care Time Critical Care Time Critical Care Time: No Discharge Plan Discharge Clinical Impression: Acute flank pain Patient Disposition: Elopement After Seen by Prov Condition: Guarded Prognosis Patient Language: Gabonese Prescriptions: No Action Pradaxa 150 mg Capsule 150 mg PO BID acetaminophen [Tylenol 8 Hour] 650 mg Tablet Extended Release 650 mg PO Q8H PRN (Reason: Pain) cyanocobalamin (vitamin B-12) 1,000 mcg Tablet 1,000 mcg PO DAILY spironolactone 25 mg Tablet 25 mg PO DAILY metoprolol tartrate 50 mg Tablet 50 mg PO Q12H dabigatran etexilate [Pradaxa] 150 mg Capsule 150 mg PO DAILY ferrous sulfate 325 mg PO DAILY furosemide 40 mg PO DAILY pravastatin 20 mg PO HS cefdinir 300 mg Capsule 300 mg PO Q12HR Qty: 10 0RF allopurinol 100 mg tablet 200 mg PO DAILY Qty: 60 0RF Follow-up/Referrals: Harms,Pavel Menard M.D. [Primary Care Provider] -
[2024-07-09 16:17] LABS: Basophils Absolute Auto 0.1 K/mm3 (0.0-0.1); Basophils Percent Auto 0.5 % (0.2-1.2); Eosinophils Percent Auto 0.4 % (0-4.4); Hematocrit 42.6 % (42.0-52.0); Hemoglobin 14.5 g/dL (14.0-18.0); Immature Granulocyte Absolute 0.11 K/mm3 (0.00-0.031); Immature Granulocyte Percent A 1.1 % (0-0.5); Lymphocytes Percent Auto 18.9 % (18.3-44.2); Mean Corpuscular Hemoglobin 32.9 pg (26-34); Mean Corpuscular Volume 96.6 fl (80-100); Mean Platelet Volume 10.4 fl (7.4-10.4); Monocytes Percent Auto 10.1 % (2.6-8.5); Neutrophils Absolute Auto 6.9 K/mm3 (1.3-6.7); Platelet Count Result 153 k/mm3 (150-375); Red Blood Count 4.41 M/mm3 (4.6-6.20); Red Cell Distribution Width 15.7 % (11.5-14.5)
[2024-07-09 16:41] LABS: Alanine Aminotransferase 13 U/L (6-50); Albumin Level 4.5 g/dL (3.5-5.1); Alkaline Phosphatase 128 U/L (38-126); Anion Gap 6 mmol/L (4-12); Aspartate Amino Transferase 25 U/L (17-59); Blood Urea Nitrogen 27 mg/dL (9-20); Calcium 9.8 mg/dL (8.4-10.2); Carbon Dioxide 31 mmol/L (22-30); Chloride 96 mmol/L (98-107); Estimated CRCL calculation 42 ml/min; Estimated Glomerular Filt Rate 53; Glucose 184 mg/dL (65-110); Potassium 4.5 mmol/L (3.4-5.0); Sodium 133 mmol/L (137-145)
--- OUTSIDE RECORDS SUMMARY | 2024-07-17 00:16 | XMS_ITS | Encounter Summary ---
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 Date/Time Encounter Type Encounter Description Reason Pro vider Source Jun 05, 2024 12:56 PM Outpatient Encounter ADMIN PAT ACTIVTIES (MASNONCT) IHE Encounter Template Text not used by [place] Plan of Treatment: Future Appointments (+ 6 months) and Future Tests (+/- 45 days) The Plan of Treatment section includes future care activities for the patient from all [place] treatmentfacilities. This section includes future appointments and future orders which are active, pending or scheduled. Future Appointments This section includes appointments that were scheduled to occur 6 months from the date of the Encounter, up to a maximum of 20 appointments. The data comes from all [place] treatment facilities. Appointment Date/Time Appointment Type Appointme nt Facility Name Jul 31, 2024 10:00 AM AMBULATORY - MEDICINE [facility] Social History: Smoking Status (Most current) and Tobacco Use (All prior to encounter date) This section includes the most current, and the historical, smoking and tobacco- related health factors from the [place] facility where the Encounter took place. Current Smoking Status This section includes the most current smoking, or tobacco-related health factor, from the [place] facility where the Encounter took place. Date/Time Current Smoking Status Comment Facil ity December 10, 2019 01:14 PM [place]-TOBACCO QUIT 15 YRS OR MORE [facility] Tobacco Use History This section includes a history of the smoking, or tobacco-related health factors, that were collected on or before the date of the Encounter. The data comes from the [place] facility where the Encounter took place. Date/Time Smoking Status/Tobacco Use Comment F acility December 10, 2019 01:14 PM CO-TOBACCO QUIT 15 YRS OR MORE [facility] Encounter Notes: All associated encounter notes This section contains the clinical notes associated to the Encounter. Date/Time Encounter Note(s) Provider Source Jun 18, 2024 12:06 PM ADDENDUM: LOCAL TITLE: Addendum STANDARD TITLE: ADDENDUM DATE OF NOTE: JUN 18, 2024@12:06:14 ENTRY DATE: JUN 18, 2024@12:06:15 AUTHOR: RODOLFO BERNARD EXP COSIGNER: URGENCY: STATUS: COMPLETED Potassium supplement ordered. Better will need to closely monitor potassium levels while taking spironolactone, furosemide, empagliflozin. /margarita/ RODOLFO BERNARD, MSN, AGNP-C NURSE PRACTITIONER Signed: 06/18/2024 12:06 Receipt Acknowledged By: 06/18/2024 12:13 /margarita/ BRODY FARLEY REGISTERED NURSE, NUCLEAR EQUIPMENT OPERATOR --- Original Document --- 06/05/24 CONTACT NOTE STL: Veterans name and last 4 were used to verify identity Verified Veterans telephone #/Updated telephone number in the system REASON FOR CALL: Other: Reason for call: FAX RECEIVE FROM [facility] /margarita/ KEKE SIMS ADVANCE MEDICAL SUPPORT ASSITANT Signed: 06/05/2024 12:58 06/12/2024 ADDENDUM STATUS: COMPLETED RNCM received Office Note with labs abd Rxs from Dr. Álvaro Queen. Office Note given to covering PCP. /isabel FARLEY REGISTERED NURSE, NUCLEAR EQUIPMENT OPERATOR Signed: 06/12/2024 10:22 06/12/2024 ADDENDUM STATUS: COMPLETED Unclear where discrepancy lies, was instructed to start furosemide 40 mg by his outside PCP. [place] is already receiving the medication from the [place] pharmacy. Last dispense 06/09/2024. was instructed to initiate potassium supplement. No mention of potassium lab value and labs received from outside PCP. Last recorded labs from [place] was July 2022. Would advise reassessment of potassium level prior to initiating potassium supplement. /margarita/ RODOLFO BERNARD, EKTA, AGNP-C NURSE PRACTITIONER Signed: 06/12/2024 12:34 Receipt Acknowledged By: 06/12/2024 13:25 /isabel FARLEY REGISTERED NURSE, NUCLEAR EQUIPMENT OPERATOR 06/12/2024 ADDENDUM STATUS: COMPLETED Vet states he just completed labs with his NON-VA PCP Dr. Mcdaniel that included a Potassium level. States he will have Dr. Mcdaniel Office fax his recent lab report to PCP at [phone]. /isabel FARLEY REGISTERED NURSE, NUCLEAR EQUIPMENT OPERATOR Signed: 06/12/2024 13:35 06/16/2024 ADDENDUM STATUS: COMPLETED RNCM received Lab Report from Dr. Mcdaniel completed 06/09/2024 that includes Potassium Level of 3.8. Lab Report given to Covering Provider. /es/ BRODY A SHORT REGISTERED NURSE, NUCLEAR EQUIPMENT OPERATOR Signed: 06/16/2024 07:40 06/18/2024 ADDENDUM STATUS: COMPLETED RNCM received Vet's recent Lab Report completed 06/09/2024 that includes a Potassium Level of 3.8. /isabel FARLEY REGISTERED NURSE, NUCLEAR EQUIPMENT OPERATOR Signed: 06/18/2024 11:37 Receipt Acknowledged By: 06/18/2024 12:04 /margarita/ RODOLFO BERNARD, MSN, AGNP-C NURSE PRACTITIONER RODOLFO BERNARD [facility] Jun 18, 2024 11:34 AM ADDENDUM: LOCAL TITLE: Addendum STANDARD TITLE: ADDENDUM DATE OF NOTE: JUN 18, 2024@11:34:42 ENTRY DATE: JUN 18, 2024@11:34:43 AUTHOR: BRODY FARLEY COSIGNER: URGENCY: STATUS: COMPLETED RNCM received Vet's recent Lab Report completed 06/09/2024 that includes a Potassium Level of 3.8. /isabel FARLEY REGISTERED NURSE, NUCLEAR EQUIPMENT OPERATOR Signed: 06/18/2024 11:37 Receipt Acknowledged By: 06/18/2024 12:04 /margarita/ RODOLFO BERNARD, MSN, AGNP-C NURSE PRACTITIONER --- Original Document --- 06/05/24 CONTACT NOTE STL: Veterans name and last 4 were used to verify identity Verified Veterans telephone #/Updated telephone number in the system REASON FOR CALL: Other: Reason for call: FAX RECEIVE FROM [facility] /margarita/ KEKE SIMS ADVANCE MEDICAL SUPPORT ASSITANT Signed: 06/05/2024 12:58 06/12/2024 ADDENDUM STATUS: COMPLETED RNCM received Office Note with labs abd Rxs from Dr. Álvaro Queen. Office Note given to covering PCP. /isabel FARLEY REGISTERED NURSE, NUCLEAR EQUIPMENT OPERATOR Signed: 06/12/2024 10:22 06/12/2024 ADDENDUM STATUS: COMPLETED Unclear where discrepancy lies, was instructed to start furosemide 40 mg by his outside PCP. [place] is already receiving the medication from the [place] pharmacy. Last dispense 06/09/2024. was instructed to initiate potassium supplement. No mention of potassium lab value and labs received from outside PCP. Last recorded labs from [place] was July 2022. Would advise reassessment of potassium level prior to initiating potassium supplement. /isabel BERNARD, EKTA, AGNP-C NURSE PRACTITIONER Signed: 06/12/2024 12:34 Receipt Acknowledged By: 06/12/2024 13:25 /isabel FARLEY REGISTERED NURSE, NUCLEAR EQUIPMENT OPERATOR 06/12/2024 ADDENDUM STATUS: COMPLETED Vet states he just completed labs with his NON-VA PCP Dr. Mcdaniel that included a Potassium level. States he will have Dr. Mcdaniel Office fax his recent lab report to PCP at [phone]. /isabel FARLEY REGISTERED NURSE, NUCLEAR EQUIPMENT OPERATOR Signed: 06/12/2024 13:35 06/16/2024 ADDENDUM STATUS: COMPLETED RNCM received Lab Report from Dr. Mcdaniel completed 06/09/2024 that includes Potassium Level of 3.8. Lab Report given to Covering Provider. /isabel FARLEY REGISTERED NURSE, NUCLEAR EQUIPMENT OPERATOR Signed: 06/16/2024 07:[address] [facility] Jun 12, 2024 12:33 PM ADDENDUM: LOCAL TITLE: Addendum STANDARD TITLE: ADDENDUM DATE OF NOTE: JUN 12, 2024@12:33:49 ENTRY DATE: JUN 12, 2024@12:33:49 AUTHOR: RODOLFO BERNARD EXP COSIGNER: URGENCY: STATUS: COMPLETED Unclear where discrepancy lies, was instructed to start furosemide 40 mg by his outside PCP. is already [place] the medication from the [place]. Last dispense 06/09/2024. [place] was instructed to initiate potassium supplement. No mention of potassium lab value and labs received from outside PCP. Last recorded labs from [place] was July 2022. Would advise reassessment of potassium level prior to initiating potassium supplement. /es/ RODOLFO L JOANA, MSN, AGNP-C NURSE PRACTITIONER Signed: 06/12/2024 12:34 Receipt Acknowledged By: 06/12/2024 13:25 /isabel FARLEY REGISTERED NURSE, NUCLEAR EQUIPMENT OPERATOR --- Original Document --- 06/05/24 CONTACT NOTE STL: Veterans name and last 4 were used to verify identity Verified Veterans telephone #/Updated telephone number in the system REASON FOR CALL: Other: Reason for call: FAX RECEIVE FROM [facility] [email or web address] [facility] /isabel SIMS ADVANCE MEDICAL SUPPORT ASSITANT Signed: 06/05/2024 12:58 06/12/2024 ADDENDUM STATUS: COMPLETED RNCM received Office Note with labs abd Rxs from Dr. Álvaro Queen. Office Note given to covering PCP. /isabel FARLEY REGISTERED NURSE, NUCLEAR EQUIPMENT OPERATOR Signed: 06/12/2024 10:22 RODOLFO BERNARD [facility] Jun 05, 2024 12:56 PM ADMINISTRATIVE NOT E: LOCAL TITLE: CONTACT NOTE STL STANDARD TITLE: ADMINISTRATIVE NOTE DATE OF NOTE: JUN 05, 2024@12:56 ENTRY DATE: JUN 05, 2024@12:56:56 AUTHOR: KEKE SIMS EXP COSIGNER: URGENCY: STATUS: COMPLETED CONTACT NOTE STL Has ADDENDA Veterans name and last 4 were used to verify identity Verified Veterans telephone #/Updated telephone number in the system REASON FOR CALL: Other: Reason for call: FAX RECEIVE FROM [facility] [employer] ([email or web address] [facility] /isabel SIMS ADVANCE MEDICAL SUPPORT ASSITANT Signed: 06/05/2024 12:58 06/12/2024 ADDENDUM STATUS: COMPLETED RNCM received Office Note with labs abd Rxs from Dr. Álvaro Queen. Office Note given to covering PCP. /isabel FARLEY REGISTERED NURSE, NUCLEAR EQUIPMENT OPERATOR Signed: 06/12/2024 10:22 06/12/2024 ADDENDUM STATUS: COMPLETED Unclear where discrepancy lies, was instructed to start furosemide 40 mg by his outside PCP. [place] is already receiving the medication from the [place] pharmacy. Last dispense 06/09/2024. was instructed to initiate potassium supplement. No mention of potassium lab value and labs received from outside PCP. Last recorded labs from [place] was July 2022. Would advise reassessment of potassium level prior to initiating potassium supplement. /isabel BERNARD, MSN, AGNP-C NURSE PRACTITIONER Signed: 06/12/2024 12:34 Receipt Acknowledged By: 06/12/2024 13:25 /isabel FARLEY REGISTERED NURSE, NUCLEAR EQUIPMENT OPERATOR 06/12/2024 ADDENDUM STATUS: COMPLETED Vet states he just completed labs with his NON-VA PCP Dr. Mcdaniel that included a Potassium level. States he will have Dr. Mcdaniel Office fax his recent lab report to PCP at [phone]. /isabel FARLEY REGISTERED NURSE, NUCLEAR EQUIPMENT OPERATOR Signed: 06/12/2024 13:35 06/16/2024 ADDENDUM STATUS: COMPLETED RNCM received Lab Report from Dr. Mcdaniel completed 06/09/2024 that includes Potassium Level of 3.8. Lab Report given to Covering Provider. /isabel FARLEY REGISTERED NURSE, NUCLEAR EQUIPMENT OPERATOR Signed: 06/16/2024 07:40 06/18/2024 ADDENDUM STATUS: COMPLETED RNCM received Vet's recent Lab Report completed 06/09/2024 that includes a Potassium Level of 3.8. /isabel FARLEY REGISTERED NURSE, NUCLEAR EQUIPMENT OPERATOR Signed: 06/18/2024 11:37 Receipt Acknowledged By: 06/18/2024 12:04 /isabel BERNARD, MSN, AGNP-C NURSE PRACTITIONER 06/18/2024 ADDENDUM STATUS: COMPLETED Potassium supplement ordered. Better will need to closely monitor potassium levels while taking spironolactone, furosemide, empagliflozin. /isabel BERNARD, MSN, AGNP-C NURSE PRACTITIONER Signed: 06/18/2024 12:06 Receipt Acknowledged By: * AWAITING SIGNATURE * BRODY FARLEY,KEKE KNOX [facility]
== END 2024-07-09 17:31 | disposition left against medical advice (07) ==
PROVIDERS: Emergency Provider Physician Assistant; PCP Family Medicine
DX: R10.9 Unspecified abdominal pain (principal); I11.0 Hypertensive heart disease with heart failure; I50.9 Heart failure, unspecified; I48.91 Unspecified atrial fibrillation; J44.9 Chronic obstructive pulmonary disease, unspecified; I25.10 Atherosclerotic heart disease of native coronary artery without angina pectoris; K21.9 Gastro-esophageal reflux disease without esophagitis; Z79.01 Long term (current) use of anticoagulants
CPT/HCPCS: 36415; 80053; 85025; 99283

== ENCOUNTER 2025-03-04 10:29 | Outpatient (CLI) | payer MEDICARE, SELFPAY ==
--- OUTSIDE RECORDS SUMMARY | 2024-06-04 04:20 | XMS_ITS | Encounter Summary ---
Author Name [facility] Address [address] [place] [address] Care Team Providers Care Civil Engineering Teacher Name Role Phone BRAXTON HERNANDEZ Primary Care Provider Unavailabl e Insurance Providers: All historical and current Section Date Range: From patient's date of to the date document was created. This section includes the names of all active insurance providers for the patient. Insurance Provider Type of Coverage Plan Name Start of Policy Coverage End of Policy Coverage Group Number Member ID Insurance Provider's Telephone Number Policy [place]'s Name Patient's Relationship to Policy [place] MEDICARE (WNR) MEDICARE (M) PART B Dec 13, 2013 PART B [id number] VILMA OROZCO PATIENT MEDICARE (WNR) MEDICARE (M) PART A Jan 12, 2009 PART A [id number] VILMA OROZCO PATIENT [place] [employer] MEDICARE SUPPLEMEN DANA MEDIC ARE SUPPL EMENT Feb 12, 2018 PLAN F [id number] [phone] VILMA OROZCO PATIENT Selected Encounter This section includes the information on record at [facility] for the Encounter. Date/Time Encounter Type Encounter Description Reason Provider Source Jun 04, 2024 09:20 AM Outpatient Encounter ADMIN PAT ACTIVTIES (MASNONCT) TRAVIS DUQUE Encounter Template Text not used by [facility] Plan of Treatment: Future Appointments (+ 6 months) and Future Tests (+/- 45 days) The Plan of Treatment section includes future care activities for the patient from all [facility] treatmentfacilities. This section includes future appointments and future orders which are active, pending or scheduled. Future Appointments This section includes appointments that were scheduled to occur 6 months from the date of the Encounter, up to a maximum of 20 appointments. The data comes from all [facility] treatment facilities. Appointment Date/Time Appointment Type Appointme nt Facility Name Aug 11, 2024 02:30 PM AMBULATORY - MEDICINE [facility] Encounter Notes: All associated encounter notes This section contains the clinical notes associated to the Encounter. Date/Time Encounter Note(s) Provider Source Jun 04, 2024 09:20 AM PHARMACY MEDICATIO N MGT DISCHARGE NOTE: LOCAL TITLE: PHARMACY COMMUNITY CARE PRESCRIPTION PROCESSING NOT STANDARD TITLE: PHARMACY MEDICATION MGT DISCHARGE NOTE DATE OF NOTE: JUN 04, 2024@09:20 ENTRY DATE: JUN 04, 2024@09:20:19 AUTHOR: TRAVIS DUQUE EXP COSIGNER: URGENCY: STATUS: COMPLETED PHARMACY COMMUNITY CARE PRESCRIPTION PROCESSING NOTE STL Has ADDENDA Pharmacy service received prescription(s) via: Inbound ERx ELIGIBILITY: Pharmacy service cannot accept this prescription because the patient is not CCN (Care in the Community) eligible. PRESCRIPTION INFORMATION: Provider Information: PRUDENCIO MERRITT,[facility] [address] [address] phone: [phone] fax: [phone] 1) eRx Drug : aspirin 81 mg tablet,delayed releaseeRx SIG : Take 1 tablet (81 mg total) by mouth daily #30, 11 refills UNCLEAR IF PT NEEDS THIS MEDICATION, Pharmacy received eRX for medication but also received RX cancellation notice 2) eRx Drug : clopidogreL 75 mg tablet (PLAVIX)eRx SIG : Take 1 tablet (75 mg total) by mouth daily #30, 11 refills PT HAS ACTIVE RX ON FILE FOR THIS MEDICATION 3) eRx Drug : furosemide 20 mg tablet (LASIX)eRx SIG : Take 2 tablets (40 mg total) by mouth 2 (two) times a day #60, 11 refills SIG/QTY MISMATCH, DOSE/DIRECTIONS CHANGE FROM ACTIVE RX 4) eRx Drug : potassium chloride ER 10 mEq CR tableteRx SIG : Take 1 tablet/capsule (10 mEq total) by mouth daily #30, 11 REFILLS DISPOSITION: Ineligible. Please considering prescribing the above medication(s) for the patient. If declining to prescribe, please comment and add RX to non-VA medication list. /margarita/ TRAVIS DUQUE PharmD [facility] Pharmacist, Pharmacy Signed: 06/04/2024 11:16 Receipt Acknowledged By: 06/09/2024 10:38 /margarita/ HAMLET KRAUS MD STAFF PHYSICIAN for MANNY CASTANO 06/04/2024 15:01 /margarita/ BRODY FARLEY REGISTERED NURSE, WOOD CAR BUILDER 06/04/2024 ADDENDUM STATUS: COMPLETED RNCM faxed ROSARIO form to Dr. Prudencio Merritt at [phone], requesting Office Note and Lab Report supporting Rxs faxed to [facility]. /margarita/ BRODY FARLEY REGISTERED NURSE, WOOD CAR BUILDER Signed: 06/04/2024 15:04 06/07/2024 ADDENDUM STATUS: COMPLETED we need potassium and renal fx. /margarita/ HAMLET KRAUS MD STAFF PHYSICIAN Signed: 06/07/2024 22:54 TRAVIS DUQUE [facility]
--- OUTSIDE RECORDS SUMMARY | 2024-06-09 04:20 | XMS_ITS | Encounter Summary ---
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 Date/Time Encounter Type Encounter Description Reason Provider Source Jun 09, 2024 09:20 AM Outpatient Encounter ADMIN PAT ACTIVTIES (MASNONCT) TRAVIS DUQUE Encounter Template Text not used by [place] Plan of Treatment: Future Appointments (+ 6 months) and Future Tests (+/- 45 days) The Plan of Treatment section includes future care activities for the patient from all [place] treatmentfacilities. This section includes future appointments and future orders which are active, pending or scheduled. Future Appointments This section includes appointments that were scheduled to occur 6 months from the date of the Encounter, up to a maximum of 20 appointments. The data comes from all [place] treatment facilities. Appointment Date/Time Appointment Type Appointme nt Facility Name Aug 11, 2024 02:30 PM AMBULATORY - MEDICINE [facility] Encounter Notes: All associated encounter notes This section contains the clinical notes associated to the Encounter. Date/Time Encounter Note(s) Provider Source Jun 09, 2024 09:20 AM PHARMACY MEDICATIO N MGT DISCHARGE NOTE: LOCAL TITLE: PHARMACY COMMUNITY CARE PRESCRIPTION PROCESSING NOT STANDARD TITLE: PHARMACY MEDICATION MGT DISCHARGE NOTE DATE OF NOTE: JUN 09, 2024@09:20 ENTRY DATE: JUN 09, 2024@09:20:21 AUTHOR: TRAVIS DUQUE WHI EXP COSIGNER: URGENCY: STATUS: COMPLETED Pharmacy service received prescription(s) via: Inbound ERx ELIGIBILITY: Pharmacy service cannot accept this prescription because the patient is not CCN (Care in the Community) eligible. PRESCRIPTION INFORMATION: Provider Information:RIZWANA HUTCHISON, [facility] medical group primary care, [address] [address] phone: [phone] fax: [phone] 1) eRx Drug : silver sulfADIAZINE 1 % topical cream (SILVADENE, SSD), SIG : Apply to affected area twice a day or with each dressing change. #85 gram, 2 refills DISPOSITION: Ineligible. Pt has pending RX for medication from [place] provider /margarita/ TRAVIS DUQUE PharmD Community Care Pharmacist, Pharmacy Signed: 06/09/2024 10:51 TRAVIS DUQUE [facility]
--- OUTSIDE RECORDS SUMMARY | 2024-07-18 03:38 | XMS_ITS | Encounter Summary ---
Author Name [facility] [place] Organization [facility] [place] Address [address] [place] [address] Care Team Providers Care Chemistry Manager Name Role Phone BRAXTON HERNANDEZ Primary Care [...] PART B Dec 13, 2013 PART B [id number] [phone] VILMA OROZCO PATIENT MEDICARE (WNR) MEDICARE (M) PART A Jan 12, 2009 PART A [id number] VILMA OROZCO PATIENT [place] [employer] MEDICARE SUPPLEMEN DANA MEDIC ARE SUPPL EMENT Feb 12, 2018 PLAN F [id number] [phone] PAMVILMA TORIBIO PATIENT Selected Encounter This section includes the information on record at [place] for the Encounter. Date/Time Encounter Type Encounter Description Reason Provider Source Jul 18, 2024 08:38 AM Outpatient Encounter GENERAL INTERNAL MEDICINE RONIT HEBERT Shantelle Encounter Template Text not used by [place] Plan of Treatment: Future Appointments (+ 6 months) and Future Tests (+/- 45 days) The Plan of Treatment section includes future care activities for the [facility]. This section includes future appointments and future [...] 11, 2024 02:30 PM AMBULATORY - MEDICINE [facility] Social History: Smoking Status (Most current) [...] PM CO-TOBACCO QUIT 15 YRS OR MORE [facility] Tobacco Use History This section includes a history of the smoking, or tobacco-related health factors, that were collected on or before the date of the Encounter. The data comes from the [place] facility where the Encounter took place. Date/Time Smoking Status/Tobacco Use Comment F acility December 10, 2019 01:14 PM CO-TOBACCO QUIT 15 YRS OR MORE [facility] Encounter Notes: All associated encounter notes This section contains the clinical notes associated to the Encounter. Date/Time Encounter Note(s) Provider Source Jul 11, 2024 02:40 PM NONVA NOTE: LOCAL TITLE: [facility] PRESENTING CARE COORD PLAN STANDARD TITLE: NONVA NOTE DATE OF NOTE: JUL 11, 2024@14:40 ENTRY DATE: JUL 18, 2024@08:38:24 AUTHOR: RONIT HEBERT COSIGNER: URGENCY: STATUS: COMPLETED Emergency Notification Intake Date Presenting to the Facility: Jun Method of Contact: Notified from [employer] worklist Notification ID: [id number] [facility] Referral #: [id number] clinical review [facility] [place], [place] Name: Hospital: [facility] Address: City: [facility] State: [place] Chief complaint: c/o increased urinary frequency and blod in urine for 2 days. Disposition Discharged Date of discharge: Jun Discharge to home Alerting PCP team to this note for continuity of care. Notes retrieved from [facility]. The below is a cursory synopsis of the discharge summary (in quotation bowden). The complete note for this episode of care has been sent to [facility] for scanning. Patient's lab evaluation is largely unremarkable. Specifically evaluation is not consistent with UTI, acute renal failure, sepsis, other urgent/emergent etiologies. Bilirubin >2: is chronic and not related to infection. Dx: urinary frequency. Further postacute care/referrals may be indicated. Please review available records for any further needs. /margarita/ Ronit Hebert MSN, RN [facility] Signed: 07/18/2024 08:43 Receipt Acknowledged By: 07/20/2024 06:30 /es/ MANNY CASTANO PA-C 07/20/2024 19:47 /es/ BRODY FARLEY REGISTERED NURSE, TRACK RIDER RONIT HEBERT [facility]
--- OUTSIDE RECORDS SUMMARY | 2024-08-11 09:30 | XMS_ITS | Encounter Summary ---
Author Name [facility] [place] [facility] [place] [facility] [place] Address [address] [place] [address] Care Team Providers Care Stripper And Printer Name Role Phone BRAXTON HERNANDEZ Primary Care [...] PART B Dec 13, 2013 PART B [id number] [phone] VILMA OROZCO PATIENT MEDICARE (WNR) MEDICARE (M) PART A Jan 12, 2009 PART A [id number] [phone] VILMA OROZCO PATIENT [place] [employer] MEDICARE SUPPLEMEN DANA MEDIC ARE SUPPL EMENT Feb 12, 2018 PLAN F [id number] [phone] VILMA OROZCO PATIENT Selected Encounter This section includes the information on record at [place] for the Encounter. Date/Time Encounter Type Encounter Description Reason Provider Source Aug 11, 2024 02:30 PM OFFICE O/P EST MOD 30 MIN PRIMARY CARE/MEDICINE ICD-10-CM R73.03 Prediabetes MANNY CASTANO Encounter Template Text not used by VA Assessments - Encounter Diagnoses This section includes the primary and secondary diagnoses documented for the Encounter. Date/Time Primary/Secondary Diagnosis Diagnosis Name Provider Source Aug 11, 2024 03:33 PM PRIMARY Prediabetes MANNY CASTANO [facility] Aug 11, 2024 03:33 PM SECONDARY Allergic rhinitis, unspecified MANNY CASTANO [facility] Aug 11, 2024 03:33 PM SECONDARY Athscl heart disease of [place] coronary artery w/o ang pctrs MANNY CASTANO [facility] Aug 11, 2024 03:33 PM SECONDARY Chronic gout, unspecified, without tophus (tophi) [facility] Aug 11, 2024 03:33 PM SECONDARY Chronic systolic (congestive) heart failure [facility] Aug 11, 2024 03:33 PM SECONDARY Essential (primary) hypertension [facility] Aug 11, 2024 03:33 PM SECONDARY Gastro-esophageal reflux disease without esophagitis [facility] Aug 11, 2024 03:33 PM SECONDARY Hyperlipidemia, unspecified [facility] Aug 11, 2024 03:33 PM SECONDARY Unspecified atrial fibrillation [facility] Vital Signs: All taken on the encounter date This section contains inpatient and outpatient Vital Signs collected on the date of the Encounter. Date/Time Temperature Pulse Blood Pressure Respiratory Rate SP02 Pain Height Weight Body Mass Index Source Aug 11, 2024 02:32 PM 97.3 81 120/62 18 96 2 196 29 [facility] Social History: Smoking Status (Most current) and Tobacco Use (All prior to encounter date) This section includes the most current, and the historical, smoking and tobacco- related health factors from the [place] facility where the Encounter took place. Current Smoking Status This section includes the most current smoking, or tobacco-related health factor, from the [place] facility where the Encounter took place. Date/Time Current Smoking Status Comment Yusef ity Aug 11, 2024 02:30 PM VA-TOBACCO USE FORMER CIGARETTES [facility] Tobacco Use History This section includes a history of the smoking, or tobacco-related health factors, that were collected on or before the date of the Encounter. The data comes from the [place] facility where the Encounter took place. Date/Time Smoking Status/Tobacco Use Comment F acgissell Aug 11, 2024 02:30 PM VA-TOBACCO USE FORMER CIGARETTES . [facility] Jan 30, 2023 01:00 PM VA-TOBACCO FORMER USER . [facility] Jan 30, 2023 01:00 PM VA-TOBACCO QUIT 15 YRS OR MORE . [facility] Dec 22, 2020 09:30 AM VA-TOBACCO FORMER USER . [facility] Dec 22, 2020 09:30 AM VA-TOBACCO QUIT 15 YRS OR MORE . [facility] Dec 19, 2018 10:38 AM VA-TOBACCO FORMER USER . [facility] Dec 19, 2018 10:38 AM VA-TOBACCO QUIT 15 YRS OR MORE [facility] Encounter Notes: All associated encounter notes This section contains the clinical notes associated to the Encounter. Date/Time Encounter Note(s) Provider Source Aug 11, 2024 02:37 PM PRIMARY CARE NOTE: LOCAL TITLE: PRIMARY CARE PROVIDER ESTABLISHED VISIT ST STANDARD TITLE: PRIMARY CARE NOTE DATE OF NOTE: AUG 11, 2024@14:37 ENTRY DATE: AUG 11, 2024@14:37:57 AUTHOR: MANNY CASTANO COSIGNER: URGENCY: STATUS: COMPLETED * Isabella presents for Annual Visit PCP:Dr. Ball SPECIALISTS:Civilian cardio/GI/opto SUBJECTIVE HPI: Isabella is a 78 y/o patient to clinic today for an annual VA appt to discuss chronic issues to include prediabetes and hypertension. Patient is accompanied to his appointment today by his who gives the majority of the patient's most recent medical history. She states that the patient continues to follow-up with her civilian primary care provider every 3 to 6 months. Patient has had some issues with abdominal pain and was treated at a local urgent care clinic with his abdominal pain resolving. Patient says that his appetite has improved since that time but is not adhering to any specific diet or exercise program. The patient's says that they continue to see his civilian dining car hop every 6 months secondary to his history of congestive heart failure and atrial fibrillation. Patient denies any cardiac related symptoms in the clinic today. Of note the patient did not have lab work done in our office prior to today's appointment but had labs completed through his civilian primary care provider's office recently. states she will have them fax the results over to our office for review. Patient denies headaches, chest pain, SOB, problems with bowel/bladder, or swelling to the BLE. The patient has no other complaints in the clinic today. 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 Prediabetes 2. Essential hypertension 3. Hyperlipidemia 4. CHF/atrial fib/CAD 5. GERD 6. Allergic rhinitis 7. Gout MEDICATIONS: Active Outpatient Medications (including Supplies): Active Outpatient Medications Status 1) ACETAMINOPHEN 325MG TAB TAKE ONE TABLET BY MOUTH EVERY 6 ACTIVE HOURS NEEDED CAUTION: DO NOT EXCEED 4000MG PER DAY ACETAMINOPHEN (APAP) FROM ALL MEDS. Indication: FOR PAIN 2) ALLOPURINOL 100MG TAB TAKE TWO TABLETS BY MOUTH TWICE A DAY ACTIVE TAKE WITH PLENTY OF WATER. Indication: FOR GOUT 3) BACITRACIN/NEOMYCIN/POLYMYXIN TOP OINT APPLY SPARINGLY TO ACTIVE AFFECTED AREA(S) THREE TIMES A DAY (EXTERNAL USE ONLY) Indication: FOR BACTERIAL INFECTION 4) CALCIUM CARB 500MG (CA 200MG) CHEW TAB CHEW AND SWALLOW ONE ACTIVE TABLET BY MOUTH NEEDED Indication: FOR HEART BURN. 5) CHOLECALCIF 50MCG (D3-2,000UNIT) TAB TAKE ONE TABLET BY ACTIVE MOUTH ONCE A DAY Indication: FOR VITAMIN D DEFICIENCY 6) CLOPIDOGREL BISULFATE 75MG TAB TAKE ONE TABLET BY MOUTH ONCE ACTIVE A DAY Indication: FOR STROKE PREVENTION 7) CYANOCOBALAMIN 500MCG TAB TAKE ONE TABLET BY MOUTH ONCE A ACTIVE DAY Indication: FOR VITAMIN B12 SUPPLEMENTATION 8) EMPAGLIFLOZIN 10MG TAB TAKE 1 TABLET BY MOUTH ONCE A DAY ACTIVE Indication: FOR HEART FAILURE 9) FERROUS SULFATE 325MG TAB TAKE ONE TABLET BY MOUTH ONCE A ACTIVE DAY Indication: FOR IRON DEFICIENCY ANEMIA 10) FUROSEMIDE 40MG TAB TAKE ONE TABLET BY MOUTH EVERY MORNING ACTIVE FOR FLUID RETENTION 11) METOPROLOL TARTRATE 25MG TAB TAKE ONE-HALF TABLET BY MOUTH ACTIVE TWICE A DAY TAKE WITH OR IMMEDIATELY FOLLOWING FOOD. Indication: FOR HIGH BLOOD PRESSURE 12) PANTOPRAZOLE NA 40MG EC TAB TAKE ONE TABLET BY MOUTH EVERY ACTIVE MORNING BEFORE A MEAL TAKE 30 MINUTES BEFORE MEAL(S) Indication: FOR GASTROESOPHAGEAL REFLUX DISEASE 13) POTASSIUM CL 20MEQ SA TAB (DISPERSIBLE) TAKE ONE-HALF TABLET ACTIVE BY MOUTH ONCE A DAY TAKE WITH FOOD Indication: FOR POTASSIUM SUPPLEMENTATION 14) ROSUVASTATIN CA 40MG TAB TAKE ONE-HALF TABLET BY MOUTH EVERY ACTIVE EVENING Indication: FOR HIGH CHOLESTEROL 15) SILVER SULFADIAZINE 1% CREAM APPLY LIGHTLY TO AFFECTED ACTIVE AREA(S) THREE TIMES A DAY (EXTERNAL USE ONLY) Indication: FOR BURN CARE 16) SPIRONOLACTONE 25MG TAB TAKE ONE TABLET BY MOUTH ONCE A DAY ACTIVE ALLERGIES: Patient has answered NKA DATA REVIEW: HGA1C 6.1 H % 08/09/2022 10:05 Lipid Panel: No LIPID PANEL EO data found CMP: No COMPREHENSIVE METABOLIC PANEL EO data found CBC: No CBC EO data found No PSA (LAST 10 5Y) EO data found TSH: No TSH (1YR) EO data found VITAMIN D, 25-HYDROXY 22.2 L ng/mL 08/09/2022 10:05 UA: No URINALYSIS EO data found VITALS: BP: 120/62 P: 81 R: 18 WT: 196 T: 97.3 reviewed OBJECTIVE: GENERAL: Alert, kyphotic/well nourished, NAD, ambulating with wheeled walker SKIN: No rashes, no jaundice, warm/dry, intact HEENT: PERRLA, nares patent, throat clear CV: S1 S2 no murmurs, rubs or gallops RESP: CTA, no crackles, rhonchi, wheezing NECK: Supple, no bruit, no thyromegaly/nodules ABD: No ttp or HSM noted EXT: No edema, no cyanosis PSY: Pleasant, appropriate, no obvious delusions or hallucinations ASSESSMENT/PLAN: 1. Prediabetes, stable per patient and report. Low carbohydrate diet and exercise were discussed at today's appointment and I offered the patient a consult to our dietitian which she refused. 2. Essential hypertension, stable with medication and followed by his civilian dining car hop. 3. Hyperlipidemia, stable with medication and followed by a civilian dining car hop. 4. CHF/atrial fib/CAD, stable with medication and followed by a civilian dining car hop. 5. GERD, stable with medication and followed by civilian primary care provider. 6. Allergic rhinitis, stable with medication and followed by a civilian primary care provider. 7. Gout, stable with medication followed by a civilian primary care provider. * Patient's to contact his civilian primary care provider's office and have them fax his most recent lab work to our office for review. * Medical conditions discussed with , medications refilled at appointment today. * Return to clinic with routine labs: 1 year. * Patient stated understanding and was agreeable with this treatment plan. Alcohol Use Screen (AUDIT-C) - V: Alcohol Screen: SCREEN FOR ALCOHOL (AUDIT-C) An alcohol screening test (AUDIT-C) was negative (score=0). 1. How often did you have a drink containing alcohol in the past year? Consider a drink to be a 12 ounce can or bottle of regular beer, 8 ounces of malt liquor, a 5 ounce glass of table wine, or a 1.5 ounce shot of liquor (like scotch, gin, or vodka). Never 2. How many drinks containing alcohol did you have on a typical day when you were drinking in the past year? Response not required due to responses to other questions. 3. How often did you have six or more drinks on one occasion in the past year? Response not required due to responses to other questions. PAVE Foot Check - L,N,P,PH,PO,PT,U: Patient declined limb care exam. The patient was advised the [place] mandates all patients with diabetes mellitus, end stage renal disease, peripheral vascular disease, or sensory neuropathy should have a complete foot check completed annually. This includes a visual exam of the skin, pedal pulses and a sensory exam. Patients with any abnormality noted during the foot check should be referred to a specialist. HIV Screening (Routine): Patient has been offered HIV testing and has declined. I have explained that HIV testing is recommended for all adults, even if all risk factors are absent. Influenza Immunization - L,N,P,PH,U: Deferral / Refusal The patient declines to receive the recommended dose of seasonal influenza vaccine. Immunization: INFLUENZA, UNSPECIFIED FORMULATION Refusal Reason: PATIENT DECISION Patient refuses all immunization(s) in the FLU group Date Documented: 08/11/24 15:09 Tobacco Use Screening - AT,DE,L,M,N,P,PH,PS,RT,S,U: The patient is a former cigarette smoker. Quit smoking GREATER THAN OR EQUAL to 15 years. The patient has never used other types of tobacco. /margarita/ MANNY CASTANO PA-C Signed: 08/11/2024 15:36 MANNY CASTANO [facility] Aug 11, 2024 02:36 PM NURSING NOTE: LOCAL TITLE: V15 PACT FACE TO FACE NOTE ST STANDARD TITLE: NURSING NOTE DATE OF NOTE: AUG 11, 2024@14:36 ENTRY DATE: AUG 11, 2024@14:36:33 AUTHOR: SILVIA MANRIQUE EXP COSIGNER: URGENCY: STATUS: COMPLETED Provider Visit: Patient Identifiers : Full Name Date of Reason for visit: Established Follow-Up Mode of Arrival: Assistive Device: Wheeled walker Allergy Review: Patient has answered NKA Allergy list reviewed and remains current. Recent Vital Signs: Temperature: 97.3 F [36.3 C] (08/11/2024 14:32) Pulse: 81 (08/11/2024 14:32) Respiration: 18 (08/11/2024 14:32) B/P: 120/62 (08/11/2024 14:32) Pain: 2 (08/11/2024 14:32) Wt: 196 lb [88.90 kg] (08/11/2024 14:32) Ht: 69 in [175.3 cm] (12/22/2018 09:19) BMI: 29.0 POX: 96% (08/11/2024 14:32) Would you like to discuss any personal problem, family problem, alcohol use, drug use, or a mental or emotional illness? No Contact provided Primary Care phone number and encouraged to call if any questions or concerns. Review that after hours nurse line [phone] and emergency room are available 04/02 for patient use. Contact verbalized good understanding. [facility] MAP: PERSONAL HEALTH PLAN INVENTORY & MAP Isabella's Response: Being with my Family Learning Assessment: - * This patient's learning ABILITIES, BARRIERS to learning, CULTURAL and ANABAPTIST beliefs, and learning PREFERENCES were assessed. Following are findings of note: Patient reads well. Patient has the following hearing/auditory barrier(s) to consider when teaching: No hearing barrier identified. Patient has the following speech barrier to consider when teaching: No speech barrier identified. LANGUAGE Patient reports that Pashto is preferred language for healthcare. Patient has the following language barrier to consider when teaching: No language barrier has been identified. Patient has the following vision barrier(s) to consider when teaching: Requires glasses/contacts for reading Alcohol Use Screen (AUDIT-C) - V: Alcohol Screen: SCREEN FOR ALCOHOL (AUDIT-C) An alcohol screening test (AUDIT-C) was negative (score=0). 1. How often did you have a drink containing alcohol in the past year? Consider a drink to be a 12 ounce can or bottle of regular beer, 8 ounces of malt liquor, a 5 ounce glass of table wine, or a 1.5 ounce shot of liquor (like scotch, gin, or vodka). Never 2. How many drinks containing alcohol did you have on a typical day when you were drinking in the past year? Response not required due to responses to other questions. 3. How often did you have six or more drinks on one occasion in the past year? Response not required due to responses to other questions. Frail/Elderly Screen: ADL Screen - Sellers Index of [place] in Activities of Daily Living Bathing: (3 Points) Receives no assistance (gets in and out of tub by self, if tub is usual means of bathing) Dressing: (3 Points) Gets clothes and gets completely dressed without assistance. Toileting: (3 Points) Goes to toilet room, cleans self, and arranges clothes without assistance (may use object for support such as cane, walker, or wheelchair, and may manage own night bedpan or commode, emptying same next morning) Transferring: (3 Points) Moves in and out of bed and in and out of chair without assistance (may be using object for support, such as cane or walker) Continence: (2 Points) Has occasional accidents or urination or bowels Feeding: (3 Points) Feeds self without assistance Total Score: 17 Points 18 = High (patient independent) 6 = Low (patient very dependent) IADL Screen - [place] Instrumental Activities of Daily Living Scale Ability to use telephone: (1 point) Operates Telephone on own initiative; looks up and dials numbers. Shopping: (0 points) Needs to be accompanied on any shopping trip. Food preparation: (1 point) Plans, prepares, and serves adequate meals independently. Housekeeping: (1 point) Maintains house alone with occasional assistance (heavy work). Laundry: (1 point) Does personal laundry completely. Mode of transportation: (0 points) Travel limited to taxi or automobile with assistance of another. Responsibility for own medications: (0 points) Takes responsibility if medication is prepared in advance in separate dosages. Ability to handle finances: (1 point) Manages day-to-day purchases, but needs help with banking, major purchases, etc. Total score: 5 points 8 = High function, independent 0 = Low function, dependent Falls Screen: Two or more falls within the last 12 months. Incontinence Screen: No incontinence. Homelessness/Food Insecurity Screen - DI,L,N,P,PH,PS,S,U: In the past 2 months, have you been living in stable housing that you own, rent, or stay in as part of a household? Yes - Living in stable housing. Are you worried or concerned that in the next 2 months you may NOT have stable housing that you own, rent, or stay in as part of a household? No - Not worried about housing near future The Isabella reports the following: Within the past 12 months, you worried whether your food would run out before you got money to buy more. Never true Within the past 12 months, the food you bought just didn't last and you didn't have money to get more. Never true Influenza Immunization - L,N,P,PH,U: Deferral / Refusal The patient declines to receive the recommended dose of seasonal influenza vaccine. Immunization: INFLUENZA, UNSPECIFIED FORMULATION Refusal Reason: PATIENT DECISION Patient refuses all immunization(s) in the FLU group Date Documented: 08/11/24 14:43 /margarita/ SILVIA JOSEPH LICENSED PRACTICAL NURSE Signed: 08/11/2024 14:43 SILVIA MANRIQUE [facility]
--- OUTSIDE RECORDS SUMMARY | 2025-03-04 06:05 | XMS_ITS | Continuity of Care Document ---
Author Name [facility] Organization [facility] Care Team Providers Care Nightclub Manager Name Role Phone [facility] Unavailable Unavailable Problems Combined list of problems from Department of Defense and Veterans Affairs facilities. It does not include entries that were removed or entered in error. Problem Status Onset Date Problem Type Date of Resolution Comments Source Allergic rhinitis Active Condition [facility] Atrial fibrillation Active Condition [facility] Congestive heart failure Active Condition [facility] Coronary artery disease Active Condition [facility] Exposure to potentially hazardous substance Active Condition [facility] Gastroesophageal reflux disease Active Condition [facility] Gout Active Condition [facility] History of gastrointestinal bleed Active Condition Aug 02, 2022 Entered By: MAGDA RATLIFF Comment: December 2021, Nigel hospitaliza timanolo. [facility] Hyperlipidemia Active Condition [facility] Hypertension Active Condition [facility] Long-term current use of anticoagulant Active Condition [facility] Prediabetes ([facility] [id number]) Active Condition [facility] Therapeutic drug effect Active Condition [facility] Vitamin D Deficiency ([facility] [id number]) Active Condition [facility] Diagnosis: ICD-10-CM R73.03 Prediabetes Active Diagnosis [facility] Diagnosis: ICD-10-CM Z91.138 Patient's unintent undrdose of meds regimen for oth reason Active Diagnosis [facility] Diagnosis: ICD-10-CM I10 Essential (primary) hypertension Active Diagnosis [facility] Diagnosis: ICD-10-CM Z74.1 Need for assistance with personal care Active Diagnosis [facility] Diagnosis: ICD-10-CM L89.892 Pressure ulcer of other site, stage 2 Active Diagnosis [facility] Diagnosis: ICD-10-CM I25.10 Athscl heart disease of [place] coronary artery w/o ang pctrs Active Diagnosis [facility] Medications Combined list of outpatient medications from Department of Defense and Veterans Affairs facilities.Medications provided include 1) outpatient medications from the last 15 months, and 2) patient-reported medications. Medication Details Route Status Patient Instructions Prescription Expires Prescription Number Last Dispense Date Ordering Provider Order Date Order Qty Source ACETAMINOPH EN 325MG TAB TAKE ONE TABLET BY MOUTH EVERY 6 HOURS NEEDED FOR PAIN CAUTION: DO NOT EXCEED 4000MG PER DAY ACETAMIN OPHEN (APAP) FROM ALL MEDS. ORAL ACTIVE 02/23/2026 [id number] 5 FRANCESCA MAHAN 2024 300 [facility] ACETAMINOPH EN 325MG TAB TAKE ONE TABLET BY MOUTH EVERY 6 HOURS NEEDED FOR PAIN CAUTION: DO NOT EXCEED 4000MG PER DAY ACETAMIN OPHEN (APAP) FROM ALL MEDS. ORAL DISCONT INUED 02/12/2025 [id number] 5 MANNY CASTANO 2023 100 [facility] ALLOPURINOL 100MG TAB TAKE TWO TABLETS BY MOUTH TWICE A DAY FOR GOUT TAKE WITH PLENTY OF WATER. ORAL 02/12/2025 [id number] 5 MANNY CASTANO 2023 360 [facility] BACITRACIN/ NEOMYCIN/PO LYMYXIN B SO4 OINT,TOP APPLY SPARINGL Y TO AFFECTED AREA(S) THREE TIMES A DAY (EXTERNA L USE ONLY) TOPICA L ACTIVE 08/12/2025 [id number] 5 MANNY CASTANO 2024 30 [facility] BACITRACIN/ NEOMYCIN/PO LYMYXIN B SO4 OINT,TOP APPLY SPARINGL Y TO AFFECTED AREA(S) THREE TIMES A DAY (EXTERNA L USE ONLY) TOPICA L DISCONT INUED 10/31/2024 [id number] 4 MANNY CASTANO 2023 30 [facility] CALCIUM CARBONATE 500MG TAB,CHEWABL E CHEW AND SWALLOW ONE TABLET BY MOUTH ONCE A DAY NEEDED FOR REFLUX ORAL ACTIVE 05/23/2025 [id number] 5 FRANCESCA MAHAN 2024 150 [facility] CALCIUM CARBONATE 500MG TAB,CHEWABL E CHEW AND SWALLOW ONE TABLET BY MOUTH NEEDED FOR HEART BURN. ORAL 02/12/2025 [id number] 5 MANNY CASTANO 2023 150 [facility] CETIRIZINE HCL 10MG TAB TAKE ONE TABLET BY MOUTH ONCE A DAY ORAL ACTIVE 08/12/2025 [id number] 5 MANNY CASTANO 2024 90 [facility] CETIRIZINE HCL 10MG TAB TAKE ONE TABLET BY MOUTH ONCE A DAY ORAL DISCONT INUED 08/01/2024 [id number] 4 MANNY CASTANO 2023 90 [facility] CHOLECALCIF BARBY 50MCG (2,000UNIT) TAB TAKE ONE TABLET BY MOUTH ONCE A DAY FOR VITAMIN D DEFICIEN CY ORAL ACTIVE 02/23/2026 [id number] 5 FRANCESCA MAHAN 2024 100 [facility] CHOLECALCIF BARBY 50MCG (2,000UNIT) TAB TAKE ONE TABLET BY MOUTH ONCE A DAY FOR VITAMIN D DEFICIEN CY ORAL DISCONT INUED 02/12/2025 [id number] 5 MANNY CASTANO 2023 100 [facility] CLOPIDOGREL BISULFATE 75MG TAB TAKE ONE TABLET BY MOUTH ONCE A DAY FOR STROKE PREVENTI ON ORAL ACTIVE 02/23/2026 [id number] 5 FRANCESCA MAHAN 2024 90 [facility] CLOPIDOGREL BISULFATE 75MG TAB TAKE ONE TABLET BY MOUTH ONCE A DAY FOR STROKE PREVENTI ON ORAL DISCONT INUED 02/12/2025 [id number] 5 MANNY CASTANO 2023 90 [facility] CYANOCOBALA MIN 500MCG TAB TAKE ONE TABLET BY MOUTH ONCE A DAY FOR VITAMIN B12 SUPPLEME NTATION ORAL SUSPEND ED 02/23/2026 [id number] 5 FRANCESCA MAHAN 2024 100 [facility] CYANOCOBALA MIN 500MCG TAB TAKE ONE TABLET BY MOUTH ONCE A DAY FOR VITAMIN B12 SUPPLEME NTATION ORAL DISCONT INUED 02/12/2025 [id number] 5 MANNY CASTANO [address] [place] [address] [facility] EMPAGLIFLOZ IN 10MG TAB TAKE 1 TABLET BY MOUTH ONCE A DAY ORAL ACTIVE 02/23/2026 [id number] 5 FRANCESCA MAHAN [address] [place] [address] [facility] EMPAGLIFLOZ IN 10MG TAB TAKE 1 TABLET BY MOUTH ONCE A DAY ORAL DISCONT INUED 02/13/2025 [id number] 4 MANNY CASTANO [address] [place] [address] [facility] FERROUS SO4 325MG TAB TAKE ONE TABLET BY MOUTH ONCE A DAY FOR IRON DEFICIEN CY ANEMIA ORAL ACTIVE 02/23/2026 [id number] 5 FRANCESCA MAHAN 2024 100 [facility] FERROUS SO4 325MG TAB TAKE ONE TABLET BY MOUTH ONCE A DAY FOR IRON DEFICIEN CY ANEMIA ORAL DISCONT INUED 02/12/2025 [id number] 5 MANNY CASTANO 2023 100 [facility] FUROSEMIDE 40MG TAB TAKE ONE TABLET BY MOUTH EVERY MORNING FOR FLUID RETENTIO N ORAL ACTIVE 02/09/2026 [id number] 5 MANNY CASTANO [address] [place] [address] [facility] FUROSEMIDE 40MG TAB TAKE ONE TABLET BY MOUTH EVERY MORNING FOR FLUID RETENTIO N ORAL DISCONT INUED 02/12/2025 [id number] 5 MANNY CASTANO [address] [place] [address] [facility] METOPROLOL TARTRATE 25MG TAB TAKE ONE-HALF TABLET BY MOUTH TWICE A DAY FOR HIGH BLOOD PRESSURE TAKE WITH OR IMMEDIAT BRANDI FOLLOWIN G FOOD. ORAL ACTIVE 01/08/2026 [id number] 5 MANNY CASTANO [address] [place] [address] [facility] METOPROLOL TARTRATE 25MG TAB TAKE ONE-HALF TABLET BY MOUTH TWICE A DAY FOR HIGH BLOOD PRESSURE TAKE WITH OR IMMEDIAT BRANDI FOLLOWIN G FOOD. ORAL DISCONT INUED 02/12/2025 [id number] 5 MANNY CASTANO 2023 90 [facility] PANTOPRAZOL E NA 40MG TAB,EC TAKE ONE TABLET BY MOUTH EVERY MORNING BEFORE A MEAL FOR GASTROES OPHAGEAL REFLUX DISEASE TAKE 30 MINUTES BEFORE MEAL(S) ORAL ACTIVE 02/23/2026 [id number] 5 FRANCESCA MAHAN 2024 90 [facility] PANTOPRAZOL E NA 40MG TAB,EC TAKE ONE TABLET BY MOUTH EVERY MORNING BEFORE A MEAL FOR GASTROES OPHAGEAL REFLUX DISEASE TAKE 30 MINUTES BEFORE MEAL(S) ORAL DISCONT INUED 02/12/2025 [id number] 5 MANNY CASTANO 2023 90 [facility] POTASSIUM CHLORIDE 20MEQ TAB,SA (DISPERSIBL E) TAKE ONE-HALF TABLET BY MOUTH ONCE A DAY FOR POTASSIU M SUPPLEME NTATION TAKE WITH FOOD ORAL ACTIVE 11/19/2025 [id number] 5 MANNY CASTANO 2024 45 [facility] POTASSIUM CHLORIDE 20MEQ TAB,SA (DISPERSIBL E) TAKE ONE-HALF TABLET BY MOUTH ONCE A DAY FOR POTASSIU M SUPPLEME NTATION TAKE WITH FOOD ORAL DISCONT INUED 11/09/2024 [id number] 5 MANNY CASTANO [address] [place] [address] [facility] POTASSIUM CHLORIDE 20MEQ TAB,SA (DISPERSIBL E) TAKE ONE-HALF TABLET BY MOUTH ONCE A DAY FOR POTASSIU M SUPPLEME NTATION TAKE WITH FOOD ORAL DISCONT INUED 09/16/2024 [id number] RODOLFO BERNARD 2023 45 [facility] PRAVASTATIN NA 40MG TAB TAKE ONE-HALF TABLET BY MOUTH EVERY EVENING TO LOWER CHOLESTE ROL (REPORT ANY MUSCLE PAIN OR WEAKNESS ) ORAL DISCONT INUED BY ISRAEL Paul 02/12/2025 [id number] 4 MANNY CASTANO 2023 45 [facility] ROSUVASTATI N CA 40MG TAB TAKE ONE-HALF TABLET BY MOUTH EVERY EVENING ORAL ACTIVE 01/12/2026 [id number] 5 MANNY CASTANO 2024 45 [facility] ROSUVASTATI N CA 40MG TAB TAKE ONE-HALF TABLET BY MOUTH EVERY EVENING ORAL DISCONT INUED 02/13/2025 [id number] 5 MANNY CASTANO 2023 45 [facility] SILVER SULFADIAZIN E 1% CREAM,TOP APPLY LIGHTLY TO AFFECTED AREA(S) THREE TIMES A DAY FOR BURN CARE (EXTERNA L USE ONLY) TOPICA L ACTIVE 06/10/2025 [id number] 4 HAMLET KRAUS 2023 85 [facility] SPIRONOLACT ONE 25MG TAB TAKE ONE TABLET BY MOUTH ONCE A DAY ORAL ACTIVE 02/23/2026 [id number] 5 FRANCESCA MAHAN 2024 90 [facility] SPIRONOLACT ONE 25MG TAB TAKE ONE TABLET BY MOUTH ONCE A DAY ORAL DISCONT INUED 02/12/2025 [id number] 5 MANNY CASTANO 2023 90 [facility] SPIRONOLACT ONE 25MG TAB TAKE ONE TABLET BY MOUTH ONCE A DAY ORAL DISCONT INUED 01/31/2024 [id number] 4 CLAYTON VANN 2022 90 [facility] TRIAMCINOLO NE ACETONIDE 0.025% CREAM,TOP APPLY SPARINGL Y TO AFFECTED AREA(S) TWICE A DAY FOR ATOPIC DERMATIT IS (EXTERNA L USE ONLY) TOPICA L ACTIVE 08/12/2025 [id number] 5 MANNY CASTANO 2024 160 [facility] Immunizations Combined list of available immunizations from the Department of Defense and Veterans Affairs facilities. Immunization Series Date Given Administered By Site Reaction Lot Number CVX Code Drug Pipe Cleaning Machine Operator Status Comments Source COVID-19 (LeadiD), MRNA, LNP-S, PF, 30 MCG/0.3 ML DOSE 2 2020 208 complet ed [facility] COVID-19 (PFIZER), MRNA, LNP-S, PF, 30 MCG/0.3 ML DOSE 1 2020 208 complet ed [facility] PNEUMOCOCCAL POLYSACCHARID E PPV23 1 2012 33 complet ed HISTORICA L INFORMATI ON - FROM OTHER REGISTRY, [facility] Vital Signs Combined list of inpatient and outpatient Vital Signs from Department of [facility] and [facility], ranging from 12 months to all on record, depending upon the facility. Vital Sign Value Date Comments Source SYSTOLIC BLOOD PRESSURE 120 08/11/2024 14:32:44 [facility] DIASTOLIC BLOOD PRESSURE 62 08/11/2024 14:32:44 [facility] PULSE OXIMETRY 96 08/11/2024 14:32:44 [facility] WEIGHT 196 08/11/2024 14:32:44 [facility] BMI 29 kg/m2 08/11/2024 14:32:44 [facility] PAIN 2 08/11/2024 14:32:44 [facility] TEMPERATURE 97.3 08/11/2024 14:32:44 [facility] PULSE 81 08/11/2024 14:32:44 [facility] RESPIRATION 18 08/11/2024 14:32:44 [facility] Encounters Combined list of: 1) Encounters from [facility] facilities going backup to the last 18 months, not all [place] inpatient encounters are included; 2) Encounters from the Department of [facility] facilities going backup to 280 months. Location Location Details Encounter Type Encounter Number Reason For Visit Attending Provider ADM Date DC Date Status Disposition Source [facility] Outpatient Encounter [id number] 09/10 [facility] Outpatient Encounter [id number] 10/08 [facility] HC PRO PHONE CALL 21-30 MIN [id number] Diagnos is: ICD-10- CM I25.10 Athscl heart disease of [place] coronar y artery w/o ang pctrs VLADISLAV ARSHAD CY L 10/08 [facility] Outpatient Encounter [id number] VLADISLAV ARSHAD CY L 10/08 [facility] Outpatient Encounter [id number] FLORI TOLBERT A L 10/14 [facility] Outpatient Encounter [id number] BECK WEINER 10/15 [facility] Outpatient Encounter [id number] 10/17 [facility] PT EDUCATION NOC INDIVID [id number] Diagnos is: ICD-10- CM I25.10 Athscl heart disease of [place] coronar y artery w/o ang pctrs FLORI TOLBERT A L 10/27 [facility] HC PRO PHONE CALL 5-10 MIN [id number] Diagnos is: ICD-10- CM L89.892 Pressur e ulcer of other site, stage 2 BLANCA PICHARDO 10/29 [facility] Outpatient Encounter [id number] 11/05 [facility] PROGRAM INTAKE ASSESSMENT [id number] Diagnos is: ICD-10- CM Z74.1 Need for assista nce with AARON Frey 11/10 [facility] Outpatient Encounter [id number] MIHIR GONZALEZ 11/21 [facility] Outpatient Encounter [id number] VLADISLAV ARSHAD KARL Baeza 11/27 [facility] Outpatient Encounter [id number] WESLEY DUQUE 12/30 [facility] Outpatient Encounter [id number] 12/30 [facility] Outpatient Encounter [id number] ADRIANE LARRY 01/28 [facility] Outpatient Encounter [id number] 01/28 [facility] Outpatient Encounter [id number] 02/03 [facility] RN TELEPHONE CALLS TO DMP [id number] Diagnos is: ICD-10- CM I10 Essenti al (primar y) hyperte nsion LUCILLE JENNINGS 02/04 [facility] Outpatient Encounter [id number] 02/09 [facility] Outpatient Encounter [id number] 02/10 [facility] OFF/OP EST NOVEMBER X REQ PHY/QHP [id number] Diagnos is: ICD-10- CM Z91.138 Patient 's uninten t undrdos e of meds regimen for oth reason LUCILLE JENNINGS 02/12 [facility] Outpatient Encounter [id number] DUNIA,BR IDGET BRAD 06/04 [facility] Outpatient Encounter [id number] DUQUE,BR IDGET BRAD 06/04 [facility] Outpatient Encounter [id number] DUQUE,BR IDGET BRAD 06/04 [facility] Outpatient Encounter [id number] DUQUE,BR IDGET BRAD 06/04 [facility] Outpatient Encounter [id number] DUQUE,BR IDGET BRAD 06/04 [facility] Outpatient Encounter [id number] 06/05 [facility] Outpatient Encounter [id number] DUQUE,BR IDGET BRAD 06/09 [facility] Outpatient Encounter [id number] DUQUE,BR IDGET BRAD 06/09 [facility] Outpatient Encounter [id number] KANG HEBERT 07/18 [facility] Encounter [id number] 08/10 [facility] OFFICE O/P EST MOD 30 MIN [id number] Diagnos is: ICD-10- CM R73.03 Prediab jimmy CASTANO,Sotero ODD 08/11 [facility] Outpatient Encounter [id number] 11/18 [facility] Outpatient Encounter [id number] 02/22 [facility] Social History Combined list of available smoking, tobacco, and other social history from Department of Defense and Veterans Affairs facilities. Social History Type Response Date Comment Sourc e Tobacco smoking status NHIS VA-TOBACCO USE FORMER CIGARETTES 08/11/2024 [facility] History of tobacco use VA-TOBACCO NEVER USED OTHER TYPE 08/11/2024 [facility] History of tobacco use DE-TOBACCO FORMER USER 01/30/2023 [facility] History of tobacco use VA-TOBACCO QUIT 15 YRS OR MORE 12/22/2020 [facility] History of tobacco use VA-TOBACCO QUIT 15 YRS OR MORE 12/10/2019 [facility] History of tobacco use VA-TOBACCO QUIT 15 YRS OR MORE 12/19/2018 [facility] Plan of Care List of future care activities from Department of Veterans Affairs facilities. Additional future care activities may be listed in the Assessment and Plan section. Date/Time Care Activity Care Activity Detail Facili ty 08/11/2025 AMBULATORY - MEDICINE AMBULATORY - MEDICI NE [facility]
[2025-03-04 10:45] LABS: Hematocrit 39.6 % (42.0-52.0); Hemoglobin 13.2 g/dL (14.0-18.0); Immature Granulocyte Percent A 0.5 % (0-0.5); Lymphocytes Absolute Auto 2.16 K/mm3 (0.9-3.2); Mean Corpuscular HGB Conc 33.3 g/dl (32-36); Mean Corpuscular Hemoglobin 32.3 pg (26-34); Mean Corpuscular Volume 96.8 fl (80-100); Nucleated Red Blood Cells Absolute Auto 0.000 K/mm3 (0.0-0.012); Nucleated Red Blood Cells Perc 0.0 % (0.0-0.2); Platelet Count Result 149 k/mm3 (150-375); Red Blood Count 4.09 M/mm3 (4.6-6.20); White Blood Count 8.3 K/mm3 (4.5-10.0)
--- OUTSIDE RECORDS SUMMARY | 2025-03-04 11:07 | XMS_ITS | Encounter Summary ---
Author Organization [facility] Address [address] [place] [address] Care Team Providers Care Chemical Test Engineer Name Role Phone Flaco Cunningham MD Primary Care Provider Flaco Cunningham MD Primary Care Provider Pavel Mcdaniel MD Primary Care Provider [phone] Isacc Rojo MD Unavailable [phone] Alice Carrizales MA Unavailable [phone] Administration, [facility] MD Unavailable Unav ailable Encounter Details Date Type Department Care Team (Late st Contact Info) Description 08/07/2016 Orders Only [facility] ProviderBilly MD [address] [place] [address] Social History Tobacco Use Types Packs/Day Years Used Date Smoking Tobacco: Former Alcohol Use Standard Drinks/Week Comments Yes 0 (1 standard drink = 0.6 oz pur e alcohol) Sex and Gender Information Value Date Recorded Sex Assigned at Not on file Legal Sex Male 4:12 AM FUNERAL HOME LOCATION MANAGER Gender Identity Male 08/08/2021 7:14 AM FUNERAL HOME LOCATION MANAGER Sexual Orientation Not on file documented as of this encounter Plan of Treatment Not on file documented as of this encounter Procedures Procedure Name Priority Date/Time Associated Diagnosis Comments CARDIOLOGY REPORT 08/07/2016 documented in this encounter Results * CARDIOLOGY REPORT (08/07/2016) Anatomical Region Laterality Modality Other Narrative 08/07/2016 Ordered by an unspecified provider. us Historical Provider [facility] NICOLE SANTIAGO Final Result documented in this encounter Visit Diagnoses Not on filedocumented in this encounter Additional Health Concerns Infection Onset Date Last Indicated Resolved Time COVID: Suspected 09/12/2022 09/12/2022 09/12/2022 8:46 AM FUNERAL HOME LOCATION MANAGER COVID: Suspected 05/01/2024 05/01/2024 05/01/2024 9:29 AM CDT COVID: Suspected 09/29/2024 09/29/2024 09/29/2024 8:15 PM CDT documented as of this encounter Care Teams Chemical Test Engineer Relationship Specialty Start Date End Date Flaco Cunningham MD [address] [facility] [address] [place] [address] PCP - General 10/12/16 10/03/21 Flaco Cunningham MD [address] [facility] [address] [facility] [address] [place] [address] PCP - General 08/25/07 10/11/16 Pavel Mcdaniel MD [address] [place] [address] PCP - General Family Medicine 10/04/21 Isacc Rojo MD [address] [place] [address] Consulting Physician Cardiology 12/21/21 Alice Carrizales MA [address] [place] [address] [address] [place] [address] ACO Care Information Security Engineer 01/21/23 01/21/23 Nell England MD Referring Physician Technician Assistant 01/24/23 Marcin Rowell Physician Production Cloth Cutter Preventative Medicine 02/12/24 documented as of this encounter
--- OUTSIDE RECORDS SUMMARY | 2025-03-04 11:07 | XMS_ITS | Clinical Summary ---
Author Organization [facility] Address [address] [place] [address] Care Team Providers Care Imaging Administrator Name Role Phone Pavel Mcdaniel MD Primary Care Provider [phone] Isacc Rojo MD Unavailable [phone] Administration, Veterans Unavailable Unav ailable Allergies No known active allergies Medications pantoprazole DR (PROTONIX) 40 mg EC tabletIndicatio ns:GI Bleed Take 1 tablet (40 mg total) by mouth 2 (two) times a day 60 tablet 11 3 Active metoprolol tartrate (LOPRESSOR) 25 mg immediate release tablet Take 0.5 tablets (12.5 mg total) by mouth 2 (two) times a day 90 tablet 2 3 Active ferrous sulfate 325 mg (65 mg of elemental iron) tabletIndicatio ns:Iron Deficiency Anemia Take 1 tablet (65 mg of elemental iron total) by mouth daily with breakfast 90 tablet 2 3 Active Additional Information Patient not taking.Reported on 12/23/2024 allopurinoL (ZYLOPRIM) 100 mg tablet Take 2 tablets (200 mg total) by mouth 2 (two) times a day 90 tablet 1 4 Active cyanocobalamin (Vitamin B-12) 500 mcg tabletIndicatio ns:Prevention of Vitamin B12 Deficiency Take 1 tablet (500 mcg total) by mouth daily 90 tablet 1 4 Active cholecalciferol (VITAMIN D-3) 2000 unit capsule Take 1 capsule (2,000 Units total) by mouth daily 90 capsule 1 4 Active acetaminophen (TYLENOL) 325 mg tablet Take 2 tablets (650 mg total) by mouth every 6 (six) hours as needed for pain 30 tablet 1 4 Active calcium carbonate (TUMS) 500 mg (200 mg elemental calcium) chewable tablet Take 1 tablet/chew tab (500 mg total) by mouth as needed for heartburn 90 tablet 1 4 Active spironolactone (ALDACTONE) 25 mg tablet Take 1 tablet (25 mg total) by mouth daily 90 tablet 3 4 Active rosuvastatin (CRESTOR) 20 mg tablet Take 1 tablet (20 mg total) by mouth daily 90 tablet 4 Active clopidogreL (PLAVIX) 75 mg tablet Take 1 tablet (75 mg total) by mouth daily 30 tablet 11 4 06/03/20 25 Active furosemide (LASIX) 20 mg tablet Take 2 tablets (40 mg total) by mouth 2 (two) times a day 60 tablet 11 4 Active potassium chloride ER (KLOR-CON) 10 mEq CR tablet Take 1 tablet/capsule (10 mEq total) by mouth daily 30 tablet/capsu le 11 4 06/03/20 25 Active tiZANidine (ZANAFLEX) 2 mg tablet Take 1 tablet (2 mg total) by mouth every 8 (eight) hours as needed for muscle spasms 30 tablet 1 5 Active tamsulosin (FLOMAX) 0.4 mg extended release capsule Take 1 capsule (0.4 mg total) by mouth daily 30 capsule 2 5 Active Active Problems Problem Noted Date Diagnosed Date Benign prostatic hyperplasia 12/15/2024 Assessment & Plan (12/15/2024 9:06 AM CDT): Marked urinary flow improvement with tamsulosin and will follow response. Muscle cramping 12/15/2024 Assessment & Plan (12/15/2024 9:06 AM CDT): Continues on aggressive hydration and will follow response. COntinue to montior lytes. Left lower lobe pulmonary infiltrate 10/06/2024 Assessment & Plan (10/06/2024 11:35 AM CDT): Check CT chest to /ro and fully evaluate for any persistent infiltarte. Platelets decreased 07/14/2024 Medicare annual wellness visit, subsequent 06/09 Assessment & Plan (06/09/2024 9:25 AM AGRICULTURE DEPARTMENT CHAIR): Foucs of exam is prevnetative in patinet with complex PMHx and will follow response. REivewed age and comoribd appropriate screening recommendations. Continue f/u with cardiology for supportive measures for CHF. Blister of right leg 06/09/2024 Assessment & Plan (06/09/2024 9:26 AM AGRICULTURE DEPARTMENT CHAIR): Leave blister skin in place. Silvadene if becomes unroofed. Reviewed red flag s/s of cellultiis. Aneurysm of ascending aorta without rupture 05/16 Allergic rhinitis 05/01/2024 Exposure to potentially hazardous substance 04/14 Prediabetes 05/01/2024 Prediabetes 05/01/2024 Vitamin D deficiency 05/01/2024 Chronic wound 05/01/2024 Itching 09/10/2023 A-fib 01/18/2023 Assessment & Plan (06/09/2024 9:24 AM AGRICULTURE DEPARTMENT CHAIR): S/p INGA implant. No further bleeding. Rate controlled on metoprolol. Afib on exam. Presence of Amulet left atrial appendage closure device 01/18/2023 H/O: GI bleed 10/16/2022 Acute upper GI bleed 09/12/2022 Acute UTI 09/12/2022 Angiodysplasia of duodenum 09/12/2022 CAD (coronary artery disease), autologous vein b ypass graft 09/12/2022 Community acquired pneumonia 09/12/2022 Congestive heart failure 09/12/2022 Diverticulosis of intestine, part unspecified, without perforation or abscess with bleeding 09/12/2022 Hypertensive heart disease without heart failure 09/12/2022 IFG (impaired fasting glucose) 09/12/2022 Irritation of skin of perianal region 09/12/2022 Perianal fissure 09/12/2022 Polyp of colon 09/12/2022 Retinal hemorrhage, bilateral 09/12/2022 Sepsis 09/12/2022 Vitamin B12 deficiency 09/12/2022 Wound of gluteal cleft 09/12/2022 Mixed hyperlipidemia 04/30/2022 Assessment & Plan (12/15/2024 9:05 AM CDT): STable on rosuvasdtatin. NO new myalgais. Generalized abdominal pain 12/17/2021 Bandemia 12/17/2021 CHRISTINA (acute kidney injury) 12/17/2021 Chronic heart failure with preserved ejection fr action 12/17/2021 Assessment & Plan (10/06/2024 11:35 AM CDT): No s/s of fluid ovelroad and will follow response. Assessment & Plan (06/09/2024 9:23 AM AGRICULTURE DEPARTMENT CHAIR): COntinues on sprionolactone, metoprolol tehrapy chronically and now with addition of furosemide, loop diuretic. Gout 12/17/2021 JEFF (obstructive sleep apnea) 12/17/2021 Assessment & Plan (06/09/2024 9:24 AM AGRICULTURE DEPARTMENT CHAIR): Reviewed nightly ventilatory supporti. Up frequently to urinate. Hyperbilirubinemia 11/14/2021 Assessment & Plan (06/09/2024 9:24 AM AGRICULTURE DEPARTMENT CHAIR): Stable, no N/V. 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 Assessment & Plan (06/09/2024 9:22 AM AGRICULTURE DEPARTMENT CHAIR): Continue f/u with pulmonary and will montior response. Hypotension 03/28/2016 Overview (10/18/2016): Hypotension, unspecified hypotension type Weight loss 03/28/2016 Overview (10/18/2016): Unintentional weight loss H/O pulmonic valve replacement 10/24/2015 Overview (10/18/2016): H/O pulmonic valve replacement Pulmonary hypertension 10/24/2015 Overview (10/18/2016): Pulmonary HTN Assessment & Plan (10/06/2024 11:34 AM CDT): No s/s of fluid overload. COntinue f/uw with Dr. Queen and specialty clinics. WIll todd moy. Assessment & Plan (06/09/2024 9:23 AM AGRICULTURE DEPARTMENT CHAIR): Reviewed oxygentation. REivewed CARTWRIGHT, edema. Reivewed sodium avoidance and will continue to montior for Orthopnea, PND Chronic atrial fibrillation 07/04/2015 Overview (10/18/2016): Atrial fibrillation, chronic Assessment & Plan (12/15/2024 9:06 AM CDT): S/p INGA. NO new palptiations/. Rate controlled. Assessment & Plan (10/06/2024 11:34 AM CDT): Reviwed use of rate control and will montior presonse. Assessment & Plan (01/24/2023 9:37 AM CDT): Continue with follow up as scheduled with Dr Queen on 02/18, sooner if needed. Pt seeing his subpoena server in a month and will have labs drawn to take a look at the platelets again. Left shoulder aching appears musculoskeletal in nature, discussed PT once cleared by cardio. He will think about it, stretches provided today in office, continue the otc remedies that provide relief. Non-rheumatic tricuspid valve insufficiency 06/15 Overview (10/18/2016): Non-rheumatic tricuspid valve insufficiency Aortic valve insufficiency 07/04/2015 Overview (10/18/2016): Aortic valve regurgitation, acquired History of repair of hip joint 05/04/2015 Overview (10/18/2016): History of right hip replacement Coronary artery disease invo lving atka coronary artery of atka heart without angina pectoris 06/29/2014 Overview (10/18/2016): Coronary arteriosclerosis in atka artery Assessment & Plan (06/09/2024 9:22 AM AGRICULTURE DEPARTMENT CHAIR): Secondary prevnetion. CONtinue to follow with cardiology. Continues on antiplatelet agent and statin therapy. Giant cell arteritis 06/29/2014 Overview (10/18/2016): Giant cell arteritis Aortic valve disorder 06/29/2014 Overview (10/18/2016): Aortic valve disorder Sleep apnea 06/29/2014 Overview (10/18/2016): Sleep apnea Pulmonary valve disorder 06/29/2014 Overview (10/18/2016): Pulmonary valve disorder Obesity (BMI 30.0-34.9) 11/28/2013 Overview (10/17/2016): OBESITY NOS Hypertension 11/28/2013 Overview (10/19/2016): HYPERTENSION NOS Assessment & Plan (12/15/2024 9:05 AM CDT): Stable at the presnet time. Continues on metoprolol and furosemide and spironolactone. Rheumatoid arthritis 08/06/2012 Overview (10/18/2016): RA (rheumatoid arthritis) Assessment & Plan (10/06/2024 11:35 AM CDT): Ambulates with assistance of rollator and will cotninue to montior response. Assessment & Plan (06/09/2024 9:24 AM AGRICULTURE DEPARTMENT CHAIR): Ambulating with walker, is very supportive to minimize fall risk. Shortness of breath 02/27/2012 Resolved Problems Problem Noted Date Diagnosed Date Resolved Date Pressure ulcer of other site, stage 2 05/01/2024 06/09/2024 Acute respiratory failure with hypoxia 05/01/2024 06/09/2024 Morbid (severe) obesity due to excess calories 05/28/2023 06/09/2024 Acute on chronic diastolic heart failure 09/12/2022 12/15/2024 Assessment & Plan (06/09/2024 9:22 AM AGRICULTURE DEPARTMENT CHAIR): Clincially responsding to introduction of loop diuretic and potassium. WIll monitor response with BMP. Down 10lBs in one week with sig reduction in edema. Acute respiratory failure 09/12/2022 Chronic obstructive pulmonary disease 09/12/2022 06/09/2024 Chronic anticoagulation 10/24/201505/15 Overview (10/18/2016): Chronic anticoagulation JEFF on CPAP 07/04/2015 05/28/2023 Overview (10/18/2016): JEFF on CPAP Dyslipidemia 07/04/2015 04/30/2022 Overview (10/18/2016): Dyslipidemia Atrial fibrillation 06/29/2014 06/02/20 Overview (10/18/2016): Atrial fibrillation Pure hypercholesterolemia 11/28/2013 Overview (10/18/2016): PURE HYPERCHOLESTEROLEM Encounters Date Type Department Care Team Description 01/04/2025 10:49 AM CDT - 01/04/2025 11:59 PM CDT Hospital Encounter [address] [address] Muscle cramping Discharge Disposition: Discharge to home or self care 01/04/2025 10:[address] [facility] Outpatient Lab at [address] [address] 01/01/2025 Telephone [facility] Cardiology [facility] Medical Office Building [address] [place] [id number] Haja Monaco MD [facility] IOV request 12/25/2024 Telephone [facility] [address] [address] Pavel Mcdaniel MD Medical Question/Miscellaneo us 12/23/2024 9:15 AM CDT Office Visit [facility] Cardiology [address] [facility] [address] [place] [address] Álvaro Queen MD Chronic diastolic congestive heart failure (HCC) (Primary Dx); Pulmonary hypertension (HCC); Coronary artery disease involving atka coronary artery of atka heart without angina pectoris; S/P CABG x 1; H/O pulmonic valve replacement; Longstanding persistent atrial fibrillation (HCC); Presence of Amulet left atrial appendage closure device; History of GI bleed 12/15/2024 8:30 AM CDT Office Visit [facility] at [address] [address] Pavel Mcdaniel MD Primary hypertension (Primary Dx); Mixed hyperlipidemia; Muscle cramping; Chronic atrial fibrillation (HCC); Benign prostatic hyperplasia, unspecified whether lower urinary tract symptoms present from Last 3 Months Immunizations Immunization Administration Dates Next Due Influenza, Unspecified 10/06/2024(Deferr ed: Patient Refused),07/14/2024(Deferred: Patient Refused),07/15/2023(Deferred: Patient Refused),05/28/2023(Deferred: Patient Refused),07/15/2022(Deferred: Patient Refused),05/22/2022(Deferred: Patient Refused),07/15/2021(Deferred: Patient Refused),07/15/2021(Deferred: Patient Refused),07/15/2021(Deferred: Patient Refused),07/15/2020(Deferred: Patient Refused),07/15/2020(Deferred: Patient Refused) Pfizer SARS-CoV-2 Monovalent Vaccination (12+ Yrs) PURPLE 10/04/2020,09/15/2020 Pneumococcal Polysaccharide PPV23 11/27/2012 Tdap 08/12/2023 Surgical History Surgery Date Site/Laterality Comments CORONARY ARTERY BYPASS GRAFT 07/15/2011 - 07/14/2012 CABG REPLACEMENT TOTAL HIP LATERAL POSITION Right VALVE REPLACEMENT 07/15/2011 - 07/14/2012 pulmonary valve replacemnet COLONOSCOPY 2012, 12/19/2021 piecemeal removal of adenoma CATARACT EXTRACTION Bilateral COLON SURGERY 12/21/2021 iliocecal vavle rupture CARDIAC VALVE REPLACEMENT 2011 Medical History Medical History Date Comments Hypertension Hypertension Hyperlipidemia Hyperlipidemia Sleep apnea 2nd test, negati ve Gout Gout Peptic ulcer Peptic ulcer dis ease Hx Other Medical pulmonary arter y aneurism r/t giant cell arteritis Polyp of colon COLON POLYPS Hx Other Medical pulmonary arter y aneurysm (GCA) s/p removal Atrial fibrillation (HCC) Atrial fibrillation Chronic coronary artery disease Coronary artery disease Hx Other Medical GCA GERD (gastroesophageal reflux disease) 04/2021 Clotting disorder ?? GI (gastrointestinal bleed) History of transfusion Depression Anxiety - neithe r treated History of giant cell arteritis Anxiety 2020 Heart disease Family History Medical History Relation Name Comments Hypertension Brother [place] Hypertension; Heart disease Father Aman Heart failure Father Aman CHF; Cause of : CHF Breast cancer Mother Cancer -breast ; /Cancer, breast; Cause of : Cancer, breast Breast cancer Other 1 Family history of Cancer, breast; Hypertension Other 2 Family history of Hypertension; Diabetes Other 3 Family history of Diabetes mellitus; Heart disease Other 4 Family history of Congenital heart disease; defects Keagan Barron Relation Name Status Comments Brother Vince Father Aman (Age 85) Mother (Age 70) Other 1 Other 2 Other 3 Other 4 Son Anderson Social History Tobacco Use Types Packs/Day Years Used Date Smoking Tobacco: Former Cigarettes 0.8 15 0 12/28/1964 - 12/29/1979 Passive Smoke Exposure: Past Smokeless Tobacco: Never Tobacco Cessation:Counseling Given: Not Answered Alcohol Use Standard Drinks/Week Comments Yes 0 (1 standard drink = 0.6 oz pur e alcohol) social Social Connection and Isolation Panel Answer Date Recorded In a typical week, how many times do you talk on the phone with family, friends, or neighbors? More than three times a week 12/18/2021 How often do you get togethe r with friends or relatives? More than three times a week 12/18/2021 Attends Jew Services Not on file 12/18 Active Member of Clubs or Organizations Not on f ile 12/18/2021 Attends Club or Organization Meetings Not on zac e 12/18/2021 Are you , , di vorced, , never , or living with a partner? 12/18/2021 AUDIT-C Answer Date Recorded Q1: How often do you have a drink containing alcohol? Never 01/18/2023 Q2: How many drinks containi ng alcohol do you have on a typical day when you are drinking? Patient does not drink Q3: How often do you have si x or more drinks on one occasion? Never 01/18/2023 Overall Financial Resource Strain (CARDIA) Answe r Date Recorded How hard is it for you to pa y for the very basics like food, housing, medical care, and heating? Not hard at all 12/18/2021 PHQ-2 Answer Date Recorded PHQ-2 Total Score (If total score is 3 or more points, staff should administer the PHQ-9) 0 12/15/2024 PRAPARE - Transportation Answer Date Re corded In the past 12 months, has l ack of transportation kept you from medical appointments or from getting medications? No 12/2021 In the past 12 months, has l ack of transportation kept you from meetings, work, or from getting things needed for daily living? No 12/18/2021 Personal Safety Answer Date Recorded Have you ever been in or are you currently in a harmful physical or emotional relationship or is someone making you feel afraid or unsafe? Denies 07/11/2024 Sex and Gender Information Value Date Recorded Sex Assigned at Not on file Legal Sex Male 4:12 AM AGRICULTURE DEPARTMENT CHAIR Gender Identity Male 08/08/2021 7:14 AM AGRICULTURE DEPARTMENT CHAIR Sexual Orientation Not on file Obstetrics History Last Filed Vital Signs Vital Sign Reading Time Taken Comments Blood Pressure 110/50 12/23/2024 9:18 AM CDT Pulse 68 12/23/2024 9:18 AM CDT Temperature 36.4 C (97.5 F) 12/15/2024 8:42 AM CDT Respiratory Rate 16 12/23/2024 9:18 AM CDT Oxygen Saturation 96% 12/23/2024 9:18 AM CDT Inhaled Oxygen Concentration - - Weight 88.9 kg (196 lb) 12/23/2024 9:18 AM CDT Height 177.8 cm (5' 10) 12/23/2024 9:18 AM CDT Body Mass Index 28.12 12/23/2024 9:18 AM CDT Plan of Treatment Health Maintenance Due Date Last Done Comments Hepatitis B Screening 1961 Zoster Vaccine (1 of 2) 1993 Pneumococcal vaccine 65+ (2 of 2 - PCV) 11/27/2013 11/27/2012 Covid-19 Vaccine (2023-2 5 season) 2024 04/27/2021, 10/04/2020, 09/15/2020 Influenza Vaccine (#1) 2025 Well Visit 65+ 06/09/2025 06/09/2024, 05/28/2023 Depression Screening 12/15/2025 12/15/2024, 10/06/2024, 07/14/2024, Additional history exists Fall Risk Assessment 12/15/2025 12/15/2024, 10/06/2024, 07/14/2024, Additional history exists DTaP/Tdap/Td Vaccine (2 - Td or Tdap) 08/12/2033 08/12/2023 Abdominal Aortic Aneurysm (A AA) Screen Completed 07/31/2024, 12/17/2021 Medical Devices Implanted Type Area Clinical Training Specialist Device Identifier Shelf Expiration Date Model / Serial / Lot [employer] Vascade Mvp 6-12fr Venous Closure [id number] - [id number] Implanted:Qty: 1 on 01/18/2023 by Carlos Tamez MD at [facility] Right: Femoral Vein [employer] 09/18/2024 [id number] / / [id number] [employer] Percutaneous Transcatheter Amplatzer Amulet 25mm [id number] - [id number] Implanted:Qty: 1 on 01/18/2023 by Álvaro Queen MD at [facility] Left Atrial Appendage Occluder Left: Atrial Appendage [employer] 04/13/2027 [id number] / / [id number] Hip Replacement Right: Hip [employer] Device Clsr Perclose Prostyle Sut-Mediatd Closure-Repair Sys 54731-12 - [id number] Implanted:Qty: 1 on 01/18/2023 by Álvaro Queen MD at [facility] Right: Femoral Vein [employer] 10/12/2024 [id number] / / [id number] [employer] Device Clsr Perclose Prostyle Sut-Mediatd Closure-Repair Sys [id number] - [id number] Implanted:Qty: 1 on 01/18/2023 by Álvaro Queen MD at [facility] Right: Femoral Vein [employer] 10/12/2024 [id number] / / [id number] Procedures Procedure Name Priority Date/Time Associated Diagnosis Comments EGFR Routine 01/04/2025 10:49 AM CDT Muscle cramping CREATINE KINASE (CK), TOTAL Routine 01/04/2025 10:49 AM CDT Muscle cramping RENAL FUNCTION PANEL Routine 01/04/2025 10:49 AM CDT Muscle cramping CT ABDOMEN PELVIS WO CONTRAST Schedule Routine, Read Routine (OP Routine) 07/31/2024 9:08 AM AGRICULTURE DEPARTMENT CHAIR Flank pain from Last 3 Months or Most Recently Relevant to Health Maintenance Results * (ABNORMAL) eGFR (01/04/2025 10:49 AM CDT) eGFR 53(L) >=60 mL/min/1. 73 m2 Comment: Interpretive Data Reference Interval Normal >/= 90 mL/min/1.73m2 Mildly decreased* 60 - 89 mL/min/1.73m2 Mildly to moderately decreased 45 - 59 mL/min/1.73m2 Moderately to severely decreased 30 - 44 mL/min/1.73m2 Severely decreased 15 - 29 mL/min/1.73m2 Kidney Failure < 15 mL/min/1.73m2 *Relative to young adult level Estimated glomerular filtration rate is determined by the 2020 CKD-EPI equation recommended by the National Kidney Foundation (A Unifying Approach to GFR Estimation: Recommendations of the NKF-ASK Task Force on Reassessing the Inclusion of Race in Diagnosing Kidney Disease, JASN 2020). The CKD-EPI equation should not be used for patients with unstable renal function and has not been validated in children and those over 70. Current interpretive data was last reviewed 2021. Blood 01/04/2025 10:4 9 AM CDT 01/04/2025 8:32 PM CDT Pavel Mcdaniel MD LAB BLOOD ORDERABLES Rosemary l Result ALISON [id number] Department [place] [address] * (ABNORMAL) Creatine kinase (CK), total (01/04/2025 10:49 AM CDT) CK 26(L) 40 - 300 Units/L Blood 01/04/2025 10:4 9 AM CDT 01/04/2025 8:27 PM CDT Pavel Mcdaniel MD LAB BLOOD ORDERABLES Rosemary l Result Performing Organization Address City/[facility]/ZIP Co de Phone Number ALISON [place] [place] [address] * (ABNORMAL) Renal function panel (01/04/2025 10:49 AM CDT) Sodium 135 135 - 145 mmol/L Potassium, pl 4.7 3.3 - 4.9 mmol/L [facility] Chloride 96(L) 97 - 110 mmol/L [facility] CO2 28 22 - 32 mmol/L [facility] Anion gap 11 2 - 15 mmol/L [facility] BUN 35(H) 6 - 25 mg/dL [facility] Creatinine 1.35(H) 0.80 - 1.30 mg/dL [facility] Comment:Icteric sample, test results may be affected. Glucose 137 70 - 199 mg/dL [facility] Comment: Interpretive Data Fasting glucose >/= 126 mg/dl is diagnostic for diabetes. Fasting is defined as no caloric intake for at least 8 hours. Fasting glucose between 100 mg/dl to 125 mg/dl is diagnostic of prediabetes. In a patient with classic symptoms of hyperglycemia or hyperglycemic crisis, a random glucose >/= 200 mg/dl is diagnostic for diabetes. In the absence of unequivocal hyperglycemia, results should be confirmed by repeat testing. The classification and Diagnosis of Diabetes Diabetes Care 2021; 46: S19-S40. Current interpretive data was last revised 2022. Calcium 10.0 8.5 - 10.3 mg/dL [facility] Phosphorus, pl 3.9 2.3 - 4.5 mg/dL [facility] Albumin 4.3 3.5 - 5.0 g/dL [facility] Blood 01/04/2025 10:4 9 AM CDT 01/04/2025 8:27 PM CDT Pavel Mcdaniel MD LAB BLOOD ORDERABLES Rosemary l Result Performing Organization Address City/[facility]/ZIP Co de Phone Number ALISON [place] [address] [place] [address] * CT Abdomen Pelvis WO Contrast (07/31/2024 9:08 AM AGRICULTURE DEPARTMENT CHAIR) Anatomical Region Laterality Modality Body N/A Computed Tomogra phy 07/31/2024 9:43 AM AGRICULTURE DEPARTMENT CHAIR Impressions 07/31/2024 9:43 AM AGRICULTURE DEPARTMENT CHAIR 1. Cholelithiasis. No evidence of cholecystitis. 2. Large stool burden consistent with constipation. 3. Severe atherosclerotic vascular disease. 4. Additional chronic or incidental findings as above. Electronically signed by: Mickey Valdez II, D.O. Narrative 07/31/2024 9:43 AM AGRICULTURE DEPARTMENT CHAIR EXAMINATION: CT ABDOMEN PELVIS WO CONTRAST DATE: 07/31/2024 9:30 AM HISTORY: Flank pain. COMPARISON: 12/17/2021. TECHNIQUE: Transaxial computed tomographic images of the abdomen and pelvis were obtained without contrast. Multiplanar coronal and sagittal images were reformatted. FINDINGS: No significant change and chronic opacity with air bronchograms in the left lower lobe. Mild bilateral gynecomastia. Severe atherosclerotic calcifications in the aorta and branch vessels. Cholelithiasis. No evidence of cholecystitis. The liver, spleen, stomach, pancreas, and adrenal glands are unremarkable. Mild fat stranding surrounding both kidneys likely represent senescent changes. No hydroureteronephrosis. Bladder is unremarkable. Right total hip arthroplasty. No free fluid in the pelvis. Prostate is normal in appearance. The appendix, colon, and small bowel are unremarkable. Subcutaneous tissues are unremarkable. Mild multilevel endplate changes in the visualized spine. No pathologic by size criteria lymphadenopathy. Their is redemonstration of a cystic lesion in the right paraesophageal region, consistent with benign etiology lesion. Procedure Note Mickey Valdez II, DO - 07/31/2024 EXAMINATION: CT ABDOMEN PELVIS WO CONTRAST DATE: 07/31/2024 9:30 AM HISTORY: Flank pain. COMPARISON: 12/17/2021. TECHNIQUE: Transaxial computed tomographic images of the abdomen and pelvis were obtained without contrast. Multiplanar coronal and sagittal images were reformatted. FINDINGS: No significant change and chronic opacity with air bronchograms in the left lower lobe. Mild bilateral gynecomastia. Severe atherosclerotic calcifications in the aorta and branch vessels. Cholelithiasis. No evidence of cholecystitis. The liver, spleen, stomach, pancreas, and adrenal glands are unremarkable. Mild fat stranding surrounding both kidneys likely represent senescent changes. No hydroureteronephrosis. Bladder is unremarkable. Right total hip arthroplasty. No free fluid in the pelvis. Prostate is normal in appearance. The appendix, colon, and small bowel are unremarkable. Subcutaneous tissues are unremarkable. Mild multilevel endplate changes in the visualized spine. No pathologic by size criteria lymphadenopathy. Their is redemonstration of a cystic lesion in the right paraesophageal region, consistent with benign etiology lesion. IMPRESSION: 1. Cholelithiasis. No evidence of cholecystitis. 2. Large stool burden consistent with constipation. 3. Severe atherosclerotic vascular disease. 4. Additional chronic or incidental findings as above. Electronically signed by: Mickey Valdez II, D.O. Pavel Mcdaniel MD IMG CT PROCEDURES Final R esult from Last 3 Months or Most Recently Relevant to Health Maintenance Insurance MEDICARE [place] [employer] [place] MED[place]ARE [facility] [place] [id number] [employer] [place] [facility] Advance Directives For more information, please contact: [phone] * Full Code (Latest Code Status on File) Date Activated Date Inactivated Comments 12/19/2021 12:07 PM 12/21/2021 7:59 PM * Full Code Date Activated Date Inactivated Comments 12/17/2021 10:28 PM 12/19/2021 12:07 PM Care Teams Imaging Administrator Relationship Specialty Start Date End Date Pavel Mcdaniel MD [address] [place] [address] PCP - General Family Medicine 10/04/21 Isacc Rojo MD [address] [place] [address] Consulting Physician Cardiology 12/21/21 Nell England MD Referring Physician Cabbage Salter 01/24/23 Marcin Rowell Physician Social Service Worker Preventative Medicine 02/12/24
--- OUTSIDE RECORDS SUMMARY | 2025-03-04 11:07 | XMS_ITS | Clinical Summary ---
Author Organization [facility] Preethi Garcia Address [address] [place] [address] Care Team Providers Care Authorization Rep Name Role Phone Pavel Mcdaniel MD Primary Care Provider [phone] Allergies No known active allergies Medications metoprolol tartrate (LOPRESSOR) 100 mg tablet Take 50 mg by mouth. Active acetaminophen (TYLENOL) 325 mg tablet Take 325 mg by mouth every 4 hours as needed. Active furosemide (LASIX) 40 mg tablet Take 40 mg by mouth daily. Active cyanocobalamin (VITAMIN B-12) 1,000 mcg/mL Solution Active spironolactone (ALDACTONE) 25 mg tablet TAKE ONE TABLET BY MOUTH ONCE A DAY 12/21/2019 Active allopurinoL (ZYLOPRIM) 100 mg tablet Take 100 mg by mouth. Active ferrous sulfate 325 mg (65 mg iron) tablet Take by mouth daily with breakfast. Active Cholecalciferol, Vitamin D3, 50 mcg (2,000 unit) Capsule Take 2,000 Units by mouth daily. Active empagliflozin (JARDIANCE) 10 mg tablet Take 10 mg by mouth daily in the morning. 02/11/2024 Active Active Problems Problem Noted Date Diagnosed Date Other dietary vitamin B12 deficiency anemia 11/2019 Iron deficiency anemia due to chronic blood loss 04/11/2020 Encounters Date Type Department Care Team Description 03/04/2025 Telephone [facility] On[facility] and H[facility]ology - [place] [address] [place] [address] Shaun Zee MD labs for appt 03/01/2025 Orders Only [facility] - [place] [address] [place] [address] [address] [place] [address] Shaun Zee MD Chronic anemia (Primary Dx) 02/17/2025 External Device Data ST[facility] ABSTRACTION Provider, Abstract 01/27/2025 External Device Data [facility] ABSTRACTION Provider, Abstract 01/27/2025 External Device Data [facility] ABSTRACTION Provider, Abstract 01/27/2025 External Device Data [facility] ABSTRACTION Provider, Abstract 12/29/2024 External Device Data [facility] ABSTRACTION Provider, Abstract 12/08/2024 External Device Data [facility] ABSTRACTION Provider, Abstract 12/08/2024 External Device Data [facility] ABSTRACTION Provider, Abstract 12/02/2024 External Device Data [facility] ABSTRACTION Provider, Abstract from Last 3 Months Family History Medical History Relation Name Comments Heart Disease Father Cancer Mother Relation Name Status Comments Brother Alive Father Mother Alive Sister Alive Son 1 Alive Son 2 Alive Social History Tobacco Use Types Packs/Day Years Used Date Smoking Tobacco: Former Cigarettes 2 20 0 04/11/1970 - 04/11/1990 Smokeless Tobacco: Never Tobacco Cessation:Counseling Given: Not Answered Alcohol Use Standard Drinks/Week Comments Yes 0 (1 standard drink = 0.6 oz pur e alcohol) OCCASINLLY Sex and Gender Information Value Date Recorded Sex Assigned at Not on file Legal Sex Male 10:36 AM CDT Gender Identity Not on file Sexual Orientation Not on file Last Filed Vital Signs Vital Sign Reading Time Taken Comments Blood Pressure 117/67 02/28/2024 9:26 AM CDT Pulse 90 02/28/2024 9:26 AM CDT Temperature 36.4 C (97.5 F) 02/28/2024 9:26 AM CDT Respiratory Rate 15 02/28/2024 9:26 AM CDT Oxygen Saturation 96% 02/28/2024 9:26 AM CDT Inhaled Oxygen Concentration - - Weight 93.9 kg (207 lb) 02/28/2024 9:26 AM CDT Height 175.3 cm (5' 9) 05/10/2021 9:48 AM CDT Body Mass Index 30.57 05/10/2021 9:48 AM CDT Plan of Treatment Upcoming Encounters Date Type Department Care Team (Late st Contact Info) Description 03/05/2025 9:00 AM CDT Office Visit [facility]ology - [place] [address] [facility] [address] [place] [address] Shaun Zee MD [address] [facility] [address] [place] [address] Health Maintenance Due Date Last Done Comments Traditional Medicare (ACO) A nnual Wellness Visit 1964 ZOSTER VACCINE (1 of 2) 1993 PNEUMOCOCCAL VACCINE 50+ YEA RS (2 of 2 - PCV) 11/27/2013 11/27/2012 RSV VACCINE (60+ or ) (1 - 1-dose 75+ series) 2018 COVID-19 Vaccine ( - 2023-2 5 season) 2024 10/04/2020, 09/15/2020 INFLUENZA VACCINE (#1) 2025 DTAP/TDAP/TD VACCINES (2 - T d or Tdap) 08/12/2033 08/12/2023 COLORECTAL SCREENING Discontinued 01/10/2022, 01/10/2022, 01/10/2022, Additional history exists Colorectal Cancer Screening Discontinued FIT-DNA Q 3 years Discontinued FIT/FOBT Q 1 year Discontinued Flex Sig/CT Colonography Q 5 years Discontinued Insurance [facility] MEDICARE PART A AND B Care Teams Authorization Rep Relationship Specialty Start Date End Date Pavel Mcdaniel MD [address] [place] [address] PCP - General Family Practice 02/28/24
--- OUTSIDE RECORDS SUMMARY | 2025-03-04 11:07 | XMS_ITS | Encounter Summary ---
Author Organization [facility] Address [address] [place] [address] Care Team Providers Care Medical Transcriptionist Name Role Phone Pavel Mcdaniel MD Primary Care Provider [phone] Reason for Visit * Reason Onset Date Comments labs for appt 03/04/2025 Encounter Details Date Type Department Care Team (Late st Contact Info) Description 03/04/2025 Telephone [facility] Oncology and Hematology - [place] [address] [facility] [address] [place] [address] Shaun Zee MD [address] [facility] [address] [place] [address] labs for appt Social History Tobacco Use Types Packs/Day Years Used Date Smoking Tobacco: Former Cigarettes 2 20 0 04/11/1970 - 04/11/1990 Smokeless Tobacco: Never Alcohol Use Standard Drinks/Week Comments Yes 0 (1 standard drink = 0.6 oz pur e alcohol) OCCASINLLY Sex and Gender Information Value Date Recorded Sex Assigned at Not on file Legal Sex Male 10:36 AM CDT Gender Identity Not on file Sexual Orientation Not on file documented as of this encounter Miscellaneous Notes * Telephone Encounter - Lara Steen - 03/04/2025 8:34 AM CDT LVM for patient regarding labs for appointment. They would need to be done today for his appointment tomorrow. documented in this encounter Plan of Treatment Upcoming Encounters Date Type Department Care Team (Late st Contact Info) Description 03/05/2025 9:00 AM CDT Office Visit [facility] Oncology and Hematology - [place] [address] [facility] [address] [place] [address] Shaun Zee MD [address] [facility] [address] [place] [address] documented as of this encounter Visit Diagnoses Not on filedocumented in this encounter Care Teams Medical Transcriptionist Relationship Specialty Start Date End Date Pavel Mcdaniel MD [address] [place] [id number] PCP - General Family Practice 02/28/24 documented as of this encounter
--- OUTSIDE RECORDS SUMMARY | 2025-03-04 11:08 | XMS_ITS | Clinical Summary ---
Author Organization [facility] Address Replaced by [facility] [place] [address] Care Team Providers Care Prenatal Teacher Name Role Phone Unavailable Primary Care Provider Unavailabl e Social History Tobacco Use Types Packs/Day Years Used Date Smoking Tobacco: Never Assessed Sex and Gender Information Value Date Recorded Sex Assigned at Not on file Legal Sex Male 7:23 PM CDT Gender Identity Not on file Sexual Orientation Not on file Plan of Treatment Health Maintenance Due Date Last Done Comments DTaP, Tdap and Td Vaccines ( 1 - Tdap) 1964 Pneumococcal Vaccine: 50+ Ye ars (1 of 1 - PCV) 1993 Zoster Vaccines (1 of 2) 1993 RSV Immunization or 60+ Years (1 - 1-dose 75+ series) 2018 COVID-19 Vaccine (2023-2 5 season) 2024 Meningococcal B Vaccine Aged Out No l onger eligible based on patient's age to complete this topic Meningococcal Vaccine Aged Out No benson maira eligible based on patient's age to complete this topic RSV Immunizations Under 20 Months Aged Out No longer eligible based on patient's age to complete this topic
[2025-03-04 16:45] LABS: Anion Gap 9 mmol/L (4-12); Blood Urea Nitrogen 39 mg/dL (9-20); Calcium 9.3 mg/dL (8.4-10.2); Carbon Dioxide 31 mmol/L (22-30); Chloride 94 mmol/L (98-107); Estimated Glomerular Filt Rate 45; Glucose 175 mg/dL (65-110); Potassium 4.1 mmol/L (3.4-5.0); Sodium 134 mmol/L (137-145)
[2025-03-04 16:48] LABS: Iron 50 ug/dL (49-181)
[2025-03-04 16:57] LABS: Percent Iron Saturation 14 % (20-50)
[2025-03-04 17:29] LABS: Ferritin 76.40 ng/mL (11.1-264)
== END 2025-03-04 10:30 | disposition home or self-care (01) ==
PROVIDERS: PCP Family Medicine; Visit Provider Internal Medicine Hematology & Oncology
DX: D64.9 Anemia, unspecified (principal)
CPT/HCPCS: 36415; 80048; 82728; 83540; 83550; 85025